=== PATIENT | female | born 1965 | race Caucasian/White ===

== ENCOUNTER 2023-07-06 08:25 | Outpatient (OUT) | payer OTHER, SELFPAY ==
--- NOTE | 2023-07-06 08:29 | MM_ITS ---
Patient: ISAK MARCIAL Exam Date: 07/06/2023 : 1965 Gender:F Ordering : DR Marcelino Cheney D.O. Admission #: [id number] Family : Order #: [id number] CLICK HERE TO VIEW EXAM RADIOLOGY REPORT PROCEDURE: MM TOMOSYNTHESIS SCREENING BI COMPARISON: MG MAMM SCREEN CIPRIANO W CAD, 07/17/2020. MG MAMM SCREEN CIPRIANO W CAD, 06/24/2019. MG MAMM SCREEN CIPRIANO W CAD, 06/21/2018. MG MAMM CIPRIANO SCRN W CAD DIG, 07/12/2013. INDICATIONS: Screening Calculator Name NCI Breast Cancer Risk Assessment Tool 5 Year Breast Cancer Risk 1.00% Lifetime Breast Cancer Risk 5.30% Personal Breast Cancer No Personal Ovarian Cancer No Treatments None Family Cancers Grandmother-maternal with breast cancer at age ~54; Aunt-maternal with breast cancer at age ~40; Grandfather-paternal with prostate cancer at age ~55; Sister with uterine cancer at age ~42. LOCATION: [facility] BREAST COMPOSITION: Scattered areas fibroglandular density. FINDINGS: DIAGNOSTIC CATEGORY 2--BENIGN FINDING: RIGHT BREAST: No significant suspicious finding. Scattered benign-appearing nodules are present. No significant change has occurred. LEFT BREAST: No significant suspicious finding. Stable, chronic asymmetry/scarring within upper-outer quadrant. No significant change has occurred. RECOMMENDATIONS: ROUTINE MAMMOGRAM AND CLINICAL EVALUATION IN 12 MONTHS. PLEASE NOTE: A NORMAL MAMMOGRAM DOES NOT EXCLUDE THE POSSIBILITY OF BREAST CANCER. A CLINICALLY SUSPICIOUS PALPABLE LUMP SHOULD BE BIOPSIED. Dictated by: Giovanni Shepherd M.D. on 07/07/2023 at 14:52 Approved by: Giovanni Shepherd M.D. on 07/07/2023 at 15:04
== END 2023-07-06 08:26 | disposition home or self-care (01) ==
LOC: MAMMO 08:25
PROVIDERS: PCP Internal Medicine; Visit Provider Internal Medicine
DX: Z12.31 Encounter for screening mammogram for malignant neoplasm of breast (principal); Z80.3 Family history of malignant neoplasm of breast; Z80.42 Family history of malignant neoplasm of prostate; Z80.8 Family history of malignant neoplasm of other organs or systems
CPT/HCPCS: 77063; 77067

== ENCOUNTER 2024-01-18 09:15 | Outpatient (OUT) | payer OTHER, SELFPAY ==
[2024-01-18 09:41] LABS: Basophils Absolute Auto 0.1 10^3/uL (0.0-0.1); Basophils Percent Auto 1.4 % (0.2-2.0); Eosinophils Absolute Auto 0.2 10^3/uL (0.0-0.7); Eosinophils Percent Auto 3.4 % (0.9-7.0); Hemoglobin 12.9 g/dL (12.0-16.0); Immature Granulocytes Abs Auto 0.01 10^3/uL (0.00-0.03); Immature Granulocytes Pct Auto 0.2 % (0.0-0.5); Lymphocytes Absolute Auto 2.3 10^3/uL (1.2-3.8); Lymphocytes Percent Auto 44.9 % (20.5-60.0); Mean Corpuscular Hemoglobin 23.2 pg (26.7-34.0); Mean Corpuscular Volume 77.5 fL (81.0-99.0); Mean Platelet Volume 8.9 fL (9.5-13.5); Monocytes Absolute Auto 0.5 10^3/uL (0.3-0.8); Monocytes Percent Auto 9.7 % (1.7-12.0); Neutrophils Absolute Auto 2.1 10^3/uL (1.4-6.5); Neutrophils Percent Auto 40.4 % (43.0-75.0); Platelet Count 257 10^3/uL (150-450); Red Blood Count 5.55 10^6/uL (4.20-5.40); Red Cell Distribution Width 16.9 % (11.0-15.0); White Blood Count 5.1 10^3/uL (4.0-11.0)
[2024-01-18 11:26] LABS: Alanine Aminotransferase 29 U/L (14-59); Albumin Globulin Ratio 0.8; Albumin Level 3.1 g/dL (3.4-5.0); Alkaline Phosphatase 69 U/L (46-116); Anion Gap 11.7; Aspartate Amino Transferase 16 U/L (15-37); BUN Creatinine Ratio 15.1; Bilirubin Total 0.5 mg/dL (0.2-1.0); Calcium 8.8 mg/dL (8.5-10.1); Carbon Dioxide 28.3 mmol/L (21.0-32.0); Chloride 104 mmol/L (98-107); Chol HDL Ratio 3.5; Cholesterol 167 mg/dL (<=200); Estimated GFR (African America >60 (>=60); Estimated GFR (Non-African Ame 53 (>=60); Globulin 3.7 g/dL; Glucose 95 mg/dL (74-106); HDL Cholesterol 48 mg/dL (40-60); LDL Cholesterol Calculated 97.4 mg/dL; Sodium 140 mmol/L (136-145); Thyroid Stimulating Hormone 2.131 uIU/mL (0.358-3.740); Total Protein 6.8 g/dL (6.4-8.2); Triglycerides 108 mg/dL (<=150); VLDL CHOLESTEROL 21.6 mg/dL
== END 2024-01-18 09:16 | disposition home or self-care (01) ==
LOC: LAB 09:16
PROVIDERS: PCP Internal Medicine; Visit Provider Internal Medicine
DX: Z00.00 Encounter for general adult medical examination without abnormal findings (principal)
CPT/HCPCS: 36415; 80053; 80061; 84443; 85025

== ENCOUNTER 2024-08-18 16:24 | Outpatient (OUT) | payer OTHER, SELFPAY ==
--- NOTE | 2024-08-18 | MM_ITS ---
Patient Name: ISAK MARCIAL MR#: [id number] : 1965 Exam Date: 08/18/2024 Ordering Doctor: DR Marcelino Cheney D.O. RADIOLOGY REPORT PROCEDURE: MM TOMOSYNTHESIS SCREENING BI COMPARISON: MM TOMOSYNTHESIS SCREENING BI, 07/06/2023. MG MAMM SCREEN CIPRIANO W CAD, 07/17/2020. MG MAMM SCREEN CIPRIANO W CAD, 06/24/2019. MG MAMM CIPRIANO SCRN W CAD DIG, 07/12/2013. INDICATIONS: Screening for malignant neoplasm Calculator Name [facility] Breast Cancer Risk Assessment Tool 5 Year Breast Cancer Risk 1.10% Lifetime Breast Cancer Risk 5.20% Personal Breast Cancer No Personal Ovarian Cancer No Treatments None Family Cancers Grandmother-maternal with breast cancer at age ~54; Aunt-maternal with breast cancer at age ~40; Grandfather-paternal with prostate cancer at age ~55; Sister with uterine cancer at age ~42. LOCATION: [facility] BREAST COMPOSITION: There are scattered areas of fibroglandular density. FINDINGS: DIAGNOSTIC CATEGORY 2--BENIGN FINDING: RIGHT BREAST: No significant suspicious finding. Stable, chronic nodule posterior lower-outer quadrant. No significant change has occurred. LEFT BREAST: No significant suspicious finding. No significant change has occurred. RECOMMENDATIONS: ROUTINE MAMMOGRAM AND CLINICAL EVALUATION IN 12 MONTHS. PLEASE NOTE: A NORMAL MAMMOGRAM DOES NOT EXCLUDE THE POSSIBILITY OF BREAST CANCER. A CLINICALLY SUSPICIOUS PALPABLE LUMP SHOULD BE BIOPSIED. Dictated by: Giovanni Shepherd M.D. on 08/19/2024 at 09:46 Approved by: Giovanni Shepherd M.D. on 08/19/2024 at 09:54
== END 2024-08-18 16:25 | disposition home or self-care (01) ==
LOC: MAMMO 16:24
PROVIDERS: PCP Internal Medicine; Visit Provider Internal Medicine
DX: Z12.31 Encounter for screening mammogram for malignant neoplasm of breast (principal); Z80.3 Family history of malignant neoplasm of breast; Z80.42 Family history of malignant neoplasm of prostate; Z80.8 Family history of malignant neoplasm of other organs or systems
CPT/HCPCS: 77063; 77067

== ENCOUNTER 2025-03-01 16:11 | Outpatient (OUT) | payer OTHER, SELFPAY ==
--- NOTE | 2025-03-01 | XR_ITS ---
The [place] [id number] Patient Name: ISAK MARCIAL MRN: [id number] date: 1965 Sex: F Assigned Patient Location: [facility] Current Patient Location: [facility] Accession/Order Number: [id number] Exam Date: 03/01/2025 18:56 Report Date: 03/01/2025 18:57 At the request of: MAIA BENNETT DO Procedure: XR hip LT min 2V XR hip LT min 2V 03/01/2025 4:31 PM SIGNS AND SYMPTOMS: ^lt hip pain M25.552 PROTOCOL: Frontal and frog-leg views of the left hip COMPARISON: None FINDINGS: The left hip joint space is preserved. There is no fracture or dislocation. Chondrocalcinosis is noted along the superior labrum suggesting underlying CPPD. Vascular calcifications are present in the pelvis. XR/XR hip LT min 2V IMPRESSION: No fracture or dislocation. Mild degenerative changes are noted in the left hip as above. Impression dictated by: Luther Amato M.D. 03/01/2025 6:57 PM Dictation Location: [place] [address] Electronically authenticated by: [id number] Y Date: 03/01/2025 18:57
--- NOTE | 2025-03-01 | XR_ITS ---
The [address] [address] Patient Name: ISAK MARCIAL MRN: [id number] date: 1965 Sex: F Assigned Patient Location: [facility] Current Patient Location: [facility] Accession/Order Number: [id number] Exam Date: 03/01/2025 18:54 Report Date: 03/01/2025 18:56 At the request of: MAIA BENNETT DO Procedure: XR lumbar spine 2-3V XR lumbar spine 2-3V 03/01/2025 4:31 PM SIGNS AND SYMPTOMS: Low back pain, recent fall PROTOCOLS: Frontal and lateral radiographs of the lumbar spine COMPARISON: None FINDINGS: There is a slight dextro convex curvature of the lumbar spine. The bones are otherwise in anatomic alignment. There is no fracture or destructive lesion. There is severe disc height loss at L4-5 with mild disc height loss at L5-S1. Facet degenerative changes are present, greatest at L4-5. The sacrum and sacroiliac joints are normal. XR/XR lumbar spine 2-3V IMPRESSION: No fracture or dislocation. Degenerative changes are noted throughout the lumbar spine greatest at L4-5. There is a slight dextro convex curvature of the lumbar spine. Impression dictated by: Luther Amato M.D. 03/01/2025 6:56 PM Dictation Location: [place] [address] Electronically authenticated by: [id number] Y Date: 03/01/2025 18:56
== END 2025-03-01 16:12 | disposition home or self-care (01) ==
LOC: RAD 16:13
PROVIDERS: PCP Internal Medicine; Visit Provider Internal Medicine
DX: M25.552 Pain in left hip (principal); M54.50 Low back pain, unspecified; M51.369 Other intervertebral disc degeneration, lumbar region without mention of lumbar back pain or lower extremity pain
CPT/HCPCS: 72100; 73502

== ENCOUNTER 2025-03-02 11:18 | Outpatient (OUT) | payer OTHER, SELFPAY ==
--- OUTSIDE RECORDS SUMMARY | 2014-07-27 10:30 | XMS_ITS | Continuity of Care Document ---
Author Organization Identify [facility] Address [address] [place] [address] [place] [address] Phone Care Team Providers Care Metal Punch Press Operator Name Role Phone Unavailable Unavailable Unavailable Procedures Procedure Date OFFICE/OUTPATIENT VISIT, EST POSTOP FOLLOW-UP VISIT POSTOP FOLLOW-UP VISIT Sleeve Gastrectomy LAP SLEEVE GASTRECTOMY OFFICE/OUTPATIENT VISIT, EST OFFICE CONSULTATION Advance Directives Directive Yes / No Effective Date File Name No Information Encounters Encounter Description Practice Location Reason(s) For Visit Diagnoses Date Provider Providers Copied on Encounter OFFICE/OUTPATI ENT VISIT, EST Identify [facility], [address] [place] [address], [id number], [place] tel:[phone] [facility] No Information 4 No [employer] [facility], [address] [place] [address], [id number], [place] tel:[phone] [facility] No Information 4 No [employer] [facility], [address] [place] [address], [id number], [place] tel:[phone] [facility] No Information 4 No [employer] [facility], [address] [place], [place] [address] [place], [place], [id number], [place] tel:[phone] [facility] IP No Information 4 No [employer] [facility], [address] [place] [address], [id number], [place] tel:[phone] [facility] IP No Information 4 Emerald Osullivan. [address], [place], [place], [id number], [place]. tel:[phone] Referring Provider: Abran Dejesus, [address] [place] [address] [address], [place], [address] . tel:[phone] OFFICE/OUTPATI ENT VISIT, [facility], [address] [place] [address] [address], [place], [place], [id number], tel:[phone] [facility] No Information 4 Emerald Osullivan. [facility] [address], [place], [place], [id number], [place]. tel:[phone] Referring Provider: Abran Dejesus, [address] [place] [address] [address], [place], [address] . tel:[phone] OFFICE [facility], [address] [place] [address] [address], [place], [place], [id number], [place] tel:[phone] [facility] No Information 4 Emerald Osullivan. [address] [place] [address] [address], [place], [place], [id number], [place]. tel:[phone] Referring Provider: Abran Dejesus, [address] [place] [address] [address], [place], [address] . tel:[phone] Family History Family Member Type Diagnosis Age At Onset No Information Payers Payer name Insurance type Covered republican ID Authoriza tion(s) No Information Social History Type Description Quantity Date Captured Comments Sex Female Smoking Status No Information Chief Complaint And Reason For Visit No Information Reason For Referral Reason For Referral No Information History Of Present Illness Encounter Date Complaint History Of Prese nt Illness No Information Functional Status Date Functional Assessmen t No Information Instructions Date Instruction Additional Infor mation No Information Assessments Type Assessment Date No Information Patient Care Teams Name Effective Dates (start - stop) Status Members No Information
--- OUTSIDE RECORDS SUMMARY | 2025-03-02 11:21 | XMS_ITS | Encounter Summary ---
Author Organization [facility] Address [address] [place] [address] Care Team Providers Care Practicing Urologist Name Role Phone Marcelino Cheney DO Primary Care Provider [phone] Reason for Referral * Other (Routine) - Closed Specialty Diagnoses / Procedures Referred By Mayelin cisneros Referred To Contact Radiology Diagnoses Abnormal mammogram Procedures SAGRRAIO LUIZA DIGITAL DIAGNOSTIC UNILATERAL RIGHT Marcelino Cheney DO [address] [place] [address] Phone: tel: fax: Referral ID Status Reason Start Date Expiration Date Visits Re quested Visits Authorized [id number] Closed 11/28/2021 11/28/2022 1 1 Encounter Details Date Type Department Care Team (Latest Contact Info) Description 11/28/2021 Transcribe Orders [facility] [address] [place] [id number] Marcelino Cheney DO [address] [place] [address] Abnormal mammogram (Primary Dx) Social History Tobacco Use Types Packs/Day Years Used Date Smoking Tobacco: Never Assessed Comments Unknown Sex and Gender Information Value Date Recorded Sex Assigned at Not on file Legal Sex Female 12:54 PM EDT Gender Identity Not on file Sexual Orientation Not on file documented as of this encounter Plan of Treatment Not on file documented as of this encounter Results * SAGRARIO LUIZA DIGITAL DIAGNOSTIC UNILATERAL RIGHT (12/02/2021 11:49 AM EDT) Anatomical Region Laterality Modality Right Mammography 12/02/2021 11:5 1 AM EDT Impressions 12/02/2021 12:35 PM EDT No mammographic evidence of malignancy BIRADS: BIRADS - CATEGORY 1 Negative. Normal interval follow-up is recommended in 12 months. OVERALL ASSESSMENT - NEGATIVE A letter of notification will be sent to the patient regarding the results. The [employer] recommends annual mammograms for women 40 years and older. Narrative 12/02/2021 12:35 PM EDT EXAMINATION: DIAGNOSTIC DIGITAL RIGHT BREAST MAMMOGRAM WITH TOMOSYNTHESIS, 12/02/2021 11:49 am TECHNIQUE: Diagnostic mammography of the right breast was performed with tomosynthesis. 2D standard and 3D tomosynthesis combination imaging performed through the right breast. Computer aided detection was utilized in the interpretation of this exam. Views: COMPARISON: November 25, 2021 HISTORY: ORDERING SYSTEM PROVIDED HISTORY: Abnormal mammogram FINDINGS: The right breast is composed of scattered fibroglandular density. Area of concern in the retroareolar right breast sufficient disperses with spot compressed imaging. No suspicious findings on this exam. us Marcelino Cheney DO IMG MAMMOGRAPHY ORDERABLES Olamide l Result documented in this encounter Visit Diagnoses Diagnosis Abnormal mammogram- Primary Abnormal mammogram, unspecified Abnormal mammogram Abnormal mammogram, unspecified documented in this encounter Care Teams Practicing Urologist Relationship Specialty Start Date End Date Marcelino Cheney [place] [facility] [place] [id number] PCP - General Internal Medicine 04/11/21 documented as of this encounter
--- OUTSIDE RECORDS SUMMARY | 2025-03-02 11:21 | XMS_ITS | Clinical Summary ---
Author Organization [facility] Address [address] [place] [address] Care Team Providers Care Director Of Revenue Cycle Management Name Role Phone Marcelino Cheney Primary Care Provider Allergies Active Allergy Reactions Criticality Noted Date Comments Codeine Rash Low 08/17/2023 Other Reaction(s): Hives, Esophageal spasms Medications fexofenadine (Carolina Allergy) 60 MG tablet Carolina Active coenzyme Q-10 10 MG capsule Co Q 10 Active escitalopram (Lexapro) 5 MG/5ML solution Escitalopram Oxalate Active pantoprazole (ProtoNix) 20 MG EC tablet Pantoprazole Sodium Active TEMAZEPAM & DIET MANAGE PROD PO Temazepam Active atorvastatin (Lipitor) 40 MG tablet 3 Active celecoxib (CeleBREX) 200 MG capsule TAKE 1 CAPSULE BY MOUTH EVERY DAY FOR 30 DAYS Active lisinopril-hydr oCHLOROthiazide 10-12.5 MG tablet .COMPLEX 4 Active Active Problems Problem Noted Date Diagnosed Date Allergies 09/12/2024 Overview (09/12/2024): Seasonal Arthritis 09/12/2024 Essential (primary) hypertension 09/12/2024 Gastroesophageal reflux dise ase with esophagitis without hemorrhage 09/12/2024 Generalized anxiety disorder 09/12/2024 Hypercholesterolemia 09/12/2024 Migraine 09/12/2024 Mild intermittent asthma without complication Reflux gastritis 09/12/2024 Sleep disturbance 09/12/2024 Allergic rhinitis due to pollen 06/16/2016 Family History Medical History Relation Name Comments Cancer Father Diabetes Father Heart disease Father Cancer Maternal Grandfather Cancer Maternal Grandmother Diabetes Maternal Grandmother Heart disease Maternal Grandmother Heart disease Mother Hyperlipidemia Mother Cancer Paternal Grandfather Diabetes Paternal Grandfather Heart disease Paternal Grandfather Hypertension Paternal Grandfather Diabetes Paternal Grandmother Heart disease Paternal Grandmother Hypertension Paternal Grandmother Cancer Sibling Diabetes Sibling Hyperlipidemia Sibling Hypertension Sibling Ivan's palsy Sister Fibromyalgia Sister Relation Name Status Comments Daughter Alive Father Maternal Grandfather Maternal Grandmother Mother Other Spouse Alive Paternal Grandfather Paternal Grandmother Sibling Alive Sister Alive Son Alive Social History Tobacco Use Types Packs/Day Years Used Date Smoking Tobacco: Unknown Passive Smoke Exposure: Never Tobacco Cessation:Counseling Given: No Comments:Light tobacco smoker Alcohol Use Standard Drinks/Week Comments Yes 0 (1 standard drink = 0.6 oz pure alcohol) caffeine: 1-2 cups per day coffee AUDIT-C Answer Date Recorded Q1: How often do you have a drink containing alc ohol? 2-4 times a month 08/08/2023 Q2: How many drinks containi ng alcohol do you have on a typical day when you are drinking? 1 or 2 08/08/2023 Frequency of Binge Drinking Not on file 07/16 Comments Unknown Sex and Gender Information Value Date Recorded Sex Assigned at Not on file Legal Sex Female 6:37 PM EDT Gender Identity Not on file Sexual Orientation Not on file Last Filed Vital Signs Vital Sign Reading Time Taken Comments Blood Pressure 139/85 06/14/2018 12:00 PM EDT Pulse - - Temperature - - Respiratory Rate - - Oxygen Saturation - - Inhaled Oxygen Concentration - - Weight 97.5 kg (215 lb) 09/15/2024 9:12 AM EST Height 162.6 cm (5' 4 ) 09/15/2024 9:12 AM EST Body Mass Index 36.9 09/15/2024 9:12 AM EST Plan of Treatment Upcoming Encounters Date Type Department Care Team (Late st Contact Info) Description 08/21/2025 11:25 AM EST Office Visit [facility] [address] [place] [address] Ivone Jones APRN-NUCLEAR EQUIPMENT TEST ENGINEER [address] [place] [address] Health Maintenance Due Date Last Done Comments CT Colonography 1965 Colonoscopy 1965 Colorectal Cancer Screening 1965 FIT-DNA 1965 FIT 1965 FOBT 1965 Sigmoidoscopy 1965 Pap Smear 1984 Cervical Cancer Screening 1993 HPV/Cotest 1993 Mammogram 12/02/2022 12/02/2021, 12/02/2021, 11/12 Influenza Vaccine Completed 08/19/2024, , 06/12/2022, Additional history exists Insurance [employer] Care Teams Director Of Revenue Cycle Management Relationship Specialty Start Date End Date Marcelino Cheney DO PCP - General Internal Medicine 09/15/24
--- OUTSIDE RECORDS SUMMARY | 2025-03-02 11:21 | XMS_ITS | Clinical Summary ---
Author Organization [facility] Address [address] [place] [address] Care Team Providers Care Glass Rolling Machine Operator Name Role Phone Marcelino Cheney DO Primary Care Provider [phone] Immunizations Immunization Administration Dates Next Due COVID-19, PFIZER PURPLE top, DILUTE for use, (age 12 y+), 30mcg/0.3mL 12/17/2020,11/20/2020 Social History Tobacco Use Types Packs/Day Years Used Date Smoking Tobacco: Never Assessed Comments Unknown Sex and Gender Information Value Date Recorded Sex Assigned at Not on file Legal Sex Female 12:54 PM EDT Gender Identity Not on file Sexual Orientation Not on file Plan of Treatment Not on file Insurance [employer] Care Teams Glass Rolling Machine Operator Relationship Specialty Start Date End Date Marcelino Cheney DO [address] [place] [id number] PCP - General Internal Medicine 04/11/21
--- OUTSIDE RECORDS SUMMARY | 2025-03-02 11:21 | XMS_ITS | Clinical Summary ---
Author Organization [facility] Address [address] [place] [address] Care Team Providers Care Shoe Stainer Name Role Phone Unavailable Primary Care Provider Unavailabl e Social History Tobacco Use Types Packs/Day Years Used Date Smoking Tobacco: Never Assessed Comments Unknown Sex and Gender Information Value Date Recorded Sex Assigned at Not on file Legal Sex Female 9:35 AM EST Gender Identity Not on file Sexual Orientation Not on file Plan of Treatment Health Maintenance Due Date Last Done Comments Anxiety Screening 1981 Depression Screening 1981 HIV Screening 1981 Hepatitis C Screening 1981 DTaP,Tdap,Td Vaccine (1 - Tdap) 1982 Cervical Cancer Screening [address] Colonography 2008 Cologuard (FIT-DNA) 2008 Colonoscopy 2008 02/04/2006, 07/18/2002 Colorectal Cancer Screening 2008 Diabetes Screening 2008 05/14/2000 Fecal Occult Blood 2008 Lipid Screening 2008 Sigmoidoscopy 2008 Pneumococcal Vaccine: 50+ (1 of 1 - PCV) 2013 Shingrix Vaccine (1 of 2) 2013 Covid-19 Vaccine (1 - 2023- season) 2024 Influenza Vaccine (Season Ended) 2025 RSV Vaccine (1 - 1-dose 75+ series) 2038 Procedures Procedure Name Priority Date/Time Associated Diagnosis Comments COLONOSCOPY, GI 02/04/2006 COMPREHENSIVE METABOLIC PANEL 05/14/2000 4:30 AM EDT from Last 3 Months or Most Recently Relevant to Health Maintenance Results * COLONOSCOPY, GI (02/04/2006) Manager Code DATE: 02/04/2006 ENDOSCOPIST: Johnny Pastor D.O. REFERRING PHYSICIAN: PATIENT NAME: ISAK MARCIAL DATE: 1965 HOSPITAL NO: [id number] IMPRESSION: 1. Colon polyp 2. Small internal hemorrhoid INTRODUCTION 40 year old female patient presents for an elective outpatient colonoscopy. The indications for the procedure were gastrointestinal bleeding and diarrhea. CONSENT: The benefits, risks, and alternatives to the procedure were discussed and informed consent was obtained from the patient. PREPARATION: Pulse, pulse oximetry and blood pressure monitored. MEDICATIONS: - Versed 1 mg IV during the procedure - Demerol 25 mg IV during the procedure - The patient was medicated for a prior procedure. PROCEDURE: Rectal exam: Normal. The endoscope was passed with ease under direct visualization to the terminal ileum confirmed by appendiceal orifice, cecal strap (atmautluak's foot) and ileocecal valve. A staff physician was present for the entire procedure from the insertion to the removal of the scope. Retroflexion was performed. The quality of the preparation was excellent. FINDINGS: The colonic mucosa appeared entirely normal with the exception of a diminutive polyp in the descending colon that was removed with cold biopsy forceps. There were no bleeding sites found. One small internal hemorrhoid was noted on retroflexion. Multiple random biopsies were obtained throughout. There were no masses found. There were no vascular abnormalities noted. [facility] 02/04/2006 Narrative [facility] - 02/04/2006 5:04 PM EDT Ordered by an unspecified provider. us [facility] Provider SCHEDULED PROCEDURES Final Resul t Performing Organization Address City/State/[facility] Co de Phone Number [facility] [address] [place] [address] * (ABNORMAL) COMP CHEMISTRY PKG (05/14/2000 4:30 AM EDT) Protein, Total 6.3 6.0 - 8.4 g/dL [facility] Albumin 3.4(A) 3.5 - 5.0 g/dL [facility] Calcium 8.7 8.5 - 10.5 mg/dL [facility] Bilirubin, Total 0.4 0.0 - 1.5 mg/dL [facility] Alkaline Phosphatase 38 20 - 120 U/L [facility] AST 25 7 - 40 U/L [facility] Glucose 81 65 - 110 mg/dL [facility] BUN 18 8 - 25 mg/dL [facility] Creatinine 0.7 0.7 - 1.4 mg/dL [facility] Sodium 142 132 - 148 mmol/L [facility] Potassium 4.6 3.5 - 5.0 mmol/L [facility] Chloride 109 98 - 110 mmol/L [facility] CO2 23(A) 24 - 32 mmol/L [facility] Anion Gap 10 0 - 15 mmol/L [facility] ALT 40 0 - 45 U/L [facility] 05/14/2000 4:30 AM EDT Johnny Pastor LABORATORY Final Result [facility] [address] [place] [address] from Last 3 Months or Most Recently Relevant to Health Maintenance Insurance [facility] PPO
--- OUTSIDE RECORDS SUMMARY | 2025-03-02 11:35 | XMS_ITS | CCD ---
Author Organization [facility] Care Team Providers Care Rcis Name Role Phone Marcelino Cheney DO Primary Care Provider DONALD, MARCELINO Jarquin Referring Unavailable BALL, MARCELINO Jarquin Primary Care Unavailable BALL, MARCELINO Jarquin Referring Unavailable BALL, MARCELINO Jarquin Primary Care Unavailable BALL, MARCELINO E Primary Care Unavailable BALL, MARCELINO Jarquin Referring Unavailable BALL, MARCELINO Jarquin Referring Unavailable BALL, MARCELINO Jarquin Primary Care Unavailable BALL, MARCELINO Jarquin Referring Unavailable BALL, MARCELINO Jarquin Primary Care Unavailable BALL, MARCELINO Jarquin Referring Unavailable BALL, MARCELINO Jarquin Primary Care Unavailable BALL, MARCELINO Jarquin Referring Unavailable BALL, MARCELINO Jarquin Primary Care Unavailable BALL, MARCELINO Jarquin Referring Unavailable BALL, MARCELINO Jarquin Primary Care Unavailable Ball, Marcelino Unavailable DONALD, DR CARVALHO Admitting Unavailable BALL, DR CARVALHO Attending Unavailable BALL, DR CARVALHO Consulting Unavailable BALL, DR CARVALHO Primary Care Unavailable BALL, DR CARVALHO Admitting Unavailable BALL, DR CARVALHO Attending Unavailable BALL, DR CARVALHO Consulting Unavailable BALL, DR CARVALHO Primary Care Unavailable ZieberGiovanni Consulting Unavailable BALL, DR CARVALHO Admitting Unavailable BALL, DR CARVALHO Attending Unavailable BALL, DR CARVALHO Consulting Unavailable BALL, DR CARVALHO Primary Care Unavailable BALL, DR CARVALHO Admitting Unavailable BALL, DR CARVALHO Attending Unavailable BALL, DR CARVALHO Primary Care Unavailable HOY ., DR LANGLEY Consulting Unavailable BALL, DR CARVALHO Primary Care Unavailable FAWWAD, H Admitting Unavailable FAWWAHammad, H Attending Unavailable PAY ., DR SNOWDEN Consulting Unavailable HERNANDEZ ., MR HANNA Consulting Unavailable FAWNOELLE, H Consulting Unavailable MISTY GOLD Consulting Unavailable UNLU, ABBY Consulting Unavailable BALL, DR CARVALHO Admitting Unavailable BALL, DR CARVALHO Attending Unavailable BALL, DR CARVALHO Primary Care Unavailable Unavailable Primary Care Provider UnavailMarcelino Saenz MD Primary Care Provider IVONE JONES Attending Unavailable DEREK BRAMBILA Attending Unavailable MARCELINO CHENEY Referring Unavailable Allergies Allergy Classification Reported Allergen(s) Allergy Type Date of Onset Reaction(s) Facility (15 sources) Codeine Drug Allergy 3 Rash [facility] (2 sources) Codeine Drug Allergy [facility] Repository (6 sources) Codeine Drug Allergy Unknown [facility] Other (6 sources) patient allergy list reviewed by nurse or physicia Propensity to adverse reactions 4 Comment:Done [facility] Other Medications Current Medications Medication Drug Class(es) Dates Sig (Normalized) Sig (Original) Acetaminophen / HYDROcodone (9 sources) Opioid Agonist take 1 tablet by mouth every four hours as needed Panlor SS 712.8-60-32 MG 1 tablet as needed Orally every 4 hrs Active Amitriptyline (16 sources) Tricyclic Antidepressant Start: 06-27-2024 take 1 tablet by mouth at bedtime Amitriptyline Active 0 .ROUTE .COMPLEX June 27, 2024 5:50pm TAKE 1 TABLET BY MOUTH AT BEDTIME Start: 02-24-2024 End: 06-27-2024 take 1 tablet by mouth three times daily Amitriptyline Discontinued 0 .ROUTE .COMPLEX 270 February 24, 2024 12:55pm June 27, 2024 5:50pm TAKE 1 TABLET BY MOUTH THREE TIMES A DAY Start: 02-02-2024 End: 02-24-2024 take 10 mg by mouth three times daily Amitriptyline Discontinued 10 MG PO Three times daily 90 February 02, 2024 9:32am February 24, 2024 12:55pm Start: 01-25-2024 End: 01-25-2024 take 25 mg by mouth once daily at bedtime Amitriptyline Discontinued 25 MG PO Daily at bedtime 90 January 25, 2024 1:10pm January 25, 2024 5:54pm 1-2 PO q HS Start: 01-25-2024 End: 02-02-2024 take 10 mg by mouth once daily at bedtime Amitriptyline Discontinued 10 MG PO Daily at bedtime 90 January 25, 2024 12:00am February 02, 2024 9:33am Start: 01-18-2024 End: 01-25-2024 take 30 mg by mouth once daily at bedtime Amitriptyline Discontinued 30 MG PO Daily at bedtime January 18, 2024 10:36am January 25, 2024 1:10pm 1-2 PO q HS Start: 01-15-2024 End: 01-18-2024 take 10 mg by mouth once daily at bedtime Amitriptyline Discontinued 10 MG PO Daily at bedtime January 15, 2024 12:00am January 18, 2024 10:38am 1-2 PO q HS atorvastatin 40 mg oral tablet (20 sources) HMG-CoA Reductase Inhibitor Start: 12-23-2023 take 1 tablet by mouth once daily Atorvastatin Active 0 .ROUTE .COMPLEX December 23, 2023 2:44pm TAKE 1 TABLET BY MOUTH ONCE DAILY Start: 08-04-2023 End: 12-23-2023 atorvastatin (Lipitor) 40 MG tablet 08/04/2023 Active Start: 09-19-2022 take 1 tablet by davey th every twenty-four hours Atorvastatin Calcium 40 MG 1 tablet Orally Once a day Sep, Active Calcium 500 + D 500-125 MG-UNIT (1 source) take 1 tablet by mouth once daily Calcium 500 + D 500-125 MG-UNIT 1 tablet Orally Once a day for 30 day(s) Active celecoxib 200 mg oral capsule (5 sources) Nonsteroidal Anti-inflammatory Drug Start: 07-01-20 take 1 capsule by mouth once daily Celecoxib (Celebrex) 200 mg capsule Active 200 MG PO Daily July 01, 2024 12:00am codeine phosphate 2 mg/ml / guaiFENesin 20 mg/ml oral solution (9 sources) Opioid Agonist Start: 11-05-19 take 10 mL by mouth every six hours guaiFENesin-Codeine 100-10 MG/5ML 10 mL Orally every 6 hrs for 7 days Oct, Active CoQ-10 100 MG (2 sources) CoQ-10 100 MG as directed Orally Active escitalopram 10 mg oral tablet (20 sources) Serotonin Reuptake Inhibitor Start: 11-10-19 End: 01-18-20 24 take 1 tablet by mouth once daily at bedtime Escitalopram Oxalate Active 0 .ROUTE .COMPLEX January 18, 2024 6:07pm TAKE 1 TABLET BY MOUTH DAILY AT BEDTIME Start: 11-10-2023 End: 11-10-2023 take 10 mg by mouth once daily at bedtime Escitalopram Oxalate Discontinued 10 MG PO Daily at bedtime 90 90 November 10, 2023 2:37pm November 10, 2023 9:42pm escitalopram (Le xapro) 5 MG/5ML solution Escitalopram Oxalate Active Escitalopram Oxa late 10 MG TAKE 1 TABLET AT BEDTIME for 90 Active fexofenadine hydrochloride 180 mg oral tablet (19 sources) Histamine-1 Receptor Antagonist Start: 01-12-2024 take 180 mg by mouth once daily Fexofenadine Active 180 MG PO Daily January 12, 2024 12:00am fexofenadine (Al legra Allergy) 60 MG tablet [place] Active take 1 tablet by davey th every twenty-four hours Fexofenadine HCl 180 MG 1 tablet Orally Once a day for 30 day(s) Active hydroCHLOROthiazide 12.5 mg / lisinopril 10 mg oral tablet (12 sources) Thiazide Diuretic, Angiotensin Converting Enzyme Inhibitor Start: 12-07-2023 lisinopril-hydroCHLOROthiazi de 10-12.5 MG tablet .COMPLEX 12/07/2023 Active Start: 12-07-2023 take 1 tablet by davey th twice daily Lisinopril-Hydrochlorothiazide Active 0 .ROUTE .COMPLEX 180 December 07, 2023 1:33pm TAKE 1 TABLET BY MOUTH TWICE DAILY Start: 12-07-2023 End: 12-07-2023 take 1 tablet by mouth twice daily Lisinopril-Hydrochlorothiazide Discontin ued 1 TAB PO Twice daily December 07, 2023 12:00am December 07, 2023 1:33pm take 1 tablet by davey twice daily Lisinopril-hydroCHLOROthiazide 10-12.5 M G 1 tablet Orally twice daily Active 24 hr metoprolol succinate 50 mg extended release oral tablet (1 source) beta-Adrenergic Liset Start: 01-16-2023 take 1 tablet by mouth every twenty-four hours Metoprolol Succinate ER 50 MG 1 tablet Orally Once a day for 30 days January, Active pantoprazole 40 mg delayed release oral tablet (19 sources) Proton Pump Inhibitor Start: 01-12-2024 take 40 mg by mouth twice daily Pantoprazole Active 40 MG PO Twice daily January 12, 2024 12:00am Start: 11-11-2022 take 1 tablet by davey th twice daily Pantoprazole Sodium 40 MG 1 tablet Orally Twice daily Oct, Active pantoprazole (Pr otoNix) 20 MG EC tablet Pantoprazole Sodium Active Spacer/Aero-Hold Chamber Bags - (9 sources) Start: 10-27-2022 Spacer/Aero-Hold Chamber Bags - Use w/ inhaler in vitro every 4 hours as needed for cough or SOB for 365 days Oct, Active TEMAZEPAM & DIET MANAGE PROD PO (6 sources) TEMAZEPAM & DIET MANAGE PROD PO Temazepam Active traMADol hydrochloride 50 mg oral tablet (4 sources) Opioid Agonist Start: 01-15-2024 take 50 mg by mouth twice daily Tramadol Active 50 MG PO Twice daily January 15, 2024 12:00am ubidecarenone 100 mg oral capsule (20 sources) Start: 01-15-2024 Coenzyme Q10 Active 200 MG PO As Directed January 15, 2024 2:56pm Start: 01-12-2024 End: 01-15-2024 Coenzyme Q10 Discontinued 10 0 MG PO As Directed January 12, 2024 12:00am January 15, 2024 2:59pm coenzyme Q-10 10 MG capsule Co Q 10 Active CoQ-10 100 MG as directed Orally Active Completed/Discontinued Medications Medication Drug Class(es) Dates Sig (Normalized) Sig (Original) Acetaminophen-Caff -Dihydrocod (4 sources) Start: 01-12-2024 End: 01-15-2024 take 1 tablet by mouth every four hours Acetaminophen-Caff- Dihydrocod Discontinued 1 TAB PO Every 4 hours January 12, 2024 12:00am January 15, 2024 2:56pm [id number] 200 actuat albuterol 0.09 mg/actuat metered dose inhaler (14 sources) beta2-Adrenergic Agonist Start: 01-12-2024 End: 01-15-2024 take 1 puff(s) by inhalation every four hours Albuterol Sulfate Discontinued 2 PUFF INHALATION Every 4 hours January 12, 2024 12:00am January 15, 2024 2:56pm Start: 10-27-2022 take 2 puff(s) by in halation every four hours as needed for cough Albuterol Sulfate HFA 108 (90 Base) MCG/ACT 2 puffs Inhalation Every 4 hours as needed for cough or SOB Oct, Active Start: 10-27-2022 take 2 puff(s) by in halation every four hours as needed for cough Albuterol Sulfate HFA 108 (90 Base) MCG/ACT 2 puffs Inhalation Every 4 hours as needed for cough or SOB Oct, Active Start: 08-14-2010 take 1 puff(s) by in halation every four hours Ventolin HFA 108 (90 Base) MCG/ACT 1 puff Inhalation every 4 hrs Aug, Active diclofenac sodium 75 mg delayed release oral tablet (12 sources) Nonsteroidal Anti-inflammatory Drug Start: 01-12-2024 End: 01-15-2024 take 75 mg by mouth twice daily Diclofenac Sodium Discontinued 75 MG PO Twice daily January 12, 2024 12:00am January 15, 2024 2:57pm take 1 tablet by [facility] twice daily at mealtime Diclofenac Sodium 75 MG TAKE 1 TABLET BY MOUTH TWICE A DAY WITH FOOD for 30 Active nortriptyline 25 mg oral capsule (13 sources) Tricyclic Antidepressant Start: 01-12-2024 End: 01-15-2024 take 25 mg by mouth once daily at bedtime Nortriptyline Discontinued 25 MG PO Daily at bedtime January 12, 2024 12:00am January 15, 2024 3:16pm take 1 capsule by mouth at bedti nv Nortriptyline HCl 25 MG TAKE 1 CAPSULE BY MOUTH AT BEDTIME for 30 Active temazepam 15 mg oral capsule (13 sources) Benzodiazepine Start: 01-15-2024 End: 01-18-2024 take 15 mg by mouth once daily at bedtime Temazepam Discontinued 15 MG PO Daily at bedtime January 15, 2024 12:00am January 18, 2024 10:36am Start: 06-15-2023 take 1 capsule by [facility] every twenty-four hours Temazepam 15 MG 1 capsule at bedtime as needed Orally Once a day for 14 days Jun, Active Start: 05-31-2023 take 1 capsule by [facility] every twenty-four hours Temazepam 15 MG 1 capsule at bedtime as needed Orally Once a day for 90 days May, Active Start: 05-05-2023 take 1 capsule by [facility] every twenty-four hours Temazepam 15 MG 1 capsule at bedtime as needed Orally Once a day for 90 days Apr, Active Start: 10-16-2022 take 1 capsule by [facility] every twenty-four hours Temazepam 15 MG 1 capsule at bedtime as needed Orally Once a day for 30 days Oct, Active triamcinolone acetonide 40 mg/ml injectable suspension (12 sources) Corticosteroid Start: 01-08-2023 Kenalog-40 Apr, 60 mg Problems Active Problems Problem Classification Problem Date Documented Da te Episodic/Chronic Acute and unspecified renal failure (1 source) Acute kidney failure, unspecified; Translations: [ACUTE KIDNEY FAILURE UNSPECIFIED] Onset: 3 Episodic Allergic reactions (15 sources) Allergic urticaria; Translations: [Allergic urticaria] Onset: 5 09-12-2024 Episodic Anxiety disorders (17 sources) Generalized anxiety disorder; Translations: [Generalized anxiety disorder] Onset: 4 01-14-2024 Chronic Asthma (20 sources) Cough variant asthma; Translations: [Cough variant asthma] Onset: 6 Chronic Cardiac dysrhythmias (4 sources) Tachycardia, unspecified; Translations: [TACHYCARDIA UNSPECIFIED] Onset: 3 Episodic Chronic obstructive pulmonary disease and bronchiectasis (6 sources) Acute exacerbation of chronic asthmatic bronchitis; Translations: [Chronic obstructive asthma, with (acute) exacerbation] Onset: 6 Chronic Delirium, dementia, and amnestic and other cognitive disorders (6 sources) Postconcussion syndrome; Translations: [Postconcussional syndrome] Chronic Disorders of lipid metabolism (20 sources) Hypercholesterolemia; Translations: [Pure hypercholesterolemia, unspecified] Onset: 4 Chronic E Codes: Adverse effects of medical drugs (2 sources) Adverse effect of carbonic-anhydrase inhibitors, benzothiadiazides and other diuretics, initial encounter; Translations: [Adverse effect of other antihypertensive drugs, initial encounter] Onset: 3 Episodic Esophageal disorders (17 sources) Gastro-esophageal reflux disease without esophagitis; Translations: [Esophageal reflux finding] Onset: 3 01-14-2024 Chronic Esophageal disorders (15 sources) Esophageal disorders; Translations: [Gastroesophageal reflux disease with esophagitis without hemorrhage] Essential hypertension (20 sources) Hypertensive disorder; Translations: [Essential (primary) hypertension] Onset: 5 Chronic Gastritis and duodenitis (3 sources) Bile-induced gastritis; Translations: [Other gastritis without bleeding] Onset: 4 09-12-2024 Episodic Headache; including migraine (15 sources) Chronic migraine without aura, non-refractory; Translations: [Migraine without aura, not intractable, without status migrainosus] Onset: 4 01-18-2024 Chronic Headache; including migraine (1 source) Headache; including migraine; Translations: [Headache, unspecified] Onset: 5 Immunizations and screening for infectious disease (12 sources) Contact with and (suspected) exposure to other viral communicable diseases; Translations: [Vaccination given] Resolved: 2 Episodic Malaise and fatigue (1 source) Other fatigue Episodic Miscellaneous mental health disorders (12 sources) Primary insomnia; Translations: [Primary insomnia] Chronic Osteoarthritis (9 sources) Osteoarthritis of knee; Translations: [Bilateral primary osteoarthritis of knee] Onset: 4 09-12-2024 Chronic Other aftercare (1 source) exterminator termite (current) use of aspirin; Translations: [RESIDENTIAL CURRENT USE OF ASPIRIN] Onset: 3 Episodic Other aftercare (1 source) Other longshore equipment operator (current) drug therapy; Translations: [OTH PLASTIC JOINT MAKER CURRENT DRUG THERAPY] Onset: 3 Episodic Other and unspecified benign neoplasm (2 sources) Melanocytic nevus of trunk; Translations: [Melanocytic nevi of trunk] 08-18-2024 Episodic Other hematologic conditions (1 source) Other specified abnormalities of plasma proteins; Translations: [OTH SPEC ABNORM PLASMA PROTEINS] Onset: 3 Episodic Other lower respiratory disease (1 source) Other forms of dyspnea Episodic Other lower respiratory disease (1 source) Shortness of breath; Translations: [SHORTNESS OF BREATH] Onset: 3 Episodic Other lower respiratory disease (1 source) Wheezing; Translations: [WHEEZING] Onset: 3 Episodic Other lower respiratory disease (6 sources) Cough; Translations: [Cough, unspecified] Episodic Other nutritional; endocrine; and metabolic disorders (5 sources) Simple obesity ; Translations: [Other obesity due to excess calories] Onset: 6 Chronic Other nutritional; endocrine; and metabolic disorders (5 sources) Obesity; Translations: [Obesity, unspecified] Chronic Other nutritional; endocrine; and metabolic disorders (5 sources) Body mass index 30+ - obesity; Translations: [Body mass index 30.0-30.9, adult] Onset: 6 Chronic Other nutritional; endocrine; and metabolic disorders (1 source) Other obesity due to excess calories; Translations: [Other obesity due to excess calories] Onset: 6 Chronic Other nutritional; endocrine; and metabolic disorders (1 source) Obesity, unspecified; Translations: [Obesity, unspecified] Chronic Other screening for suspected conditions (not mental disorders or infectious disease) (13 sources) Patient encounter status; Translations: [Encounter for screening mammogram for malignant neoplasm of breast] Episodic Other skin disorders (2 sources) Lentiginosis; Translations: [Other melanin hyperpigmentation] 08-18-2024 Episodic Other skin disorders (2 sources) Seborrheic keratosis; Translations: [Other seborrheic keratosis] 08-18-2024 Episodic Other skin disorders (2 sources) Sebaceous hyperplasia; Translations: [Other specified follicular disorders] 08-18-2024 Episodic Other upper respiratory disease (20 sources) Allergic rhinitis due to pollen; Translations: [Allergic rhinitis due to pollen] Onset: 6 01-18-2024 Chronic Other upper respiratory disease (5 sources) Seasonal allergic rhinitis; Translations: [Other seasonal allergic rhinitis] Chronic Other upper respiratory disease (5 sources) Allergic rhinitis; Translations: [Allergic rhinitis, unspecified] Onset: 5 Chronic Other upper respiratory disease (2 sources) Allergic rhinitis due to pollen Chronic Other upper respiratory disease (1 source) Other seasonal allergic rhinitis; Translations: [Other seasonal allergic rhinitis] Chronic Other upper respiratory disease (1 source) Allergic rhinitis, unspecified; Translations: [Allergic rhinitis, unspecified] Onset: 5 Chronic Phlebitis; thrombophlebitis and thromboembolism (1 source) Personal history of other venous thrombosis and embolism; Translations: [PERS HX OTH VENOUS THROMBOSIS AND EMBO] Onset: 3 Episodic Pulmonary heart disease (1 source) Personal history of pulmonary embolism; Translations: [PERSONAL HISTORY PULMONARY EMBOLISM] Onset: 3 Episodic Residual codes; unclassified (1 source) Family history of ischemic heart disease and other diseases of the circulatory system; Translations: [FAM HX ISCHEMIC HRT DZ OTH DZ CIRC] Onset: 3 Episodic Residual codes; unclassified (1 source) Acquired absence of stomach [part of]; Translations: [ACQUIRED ABSENCE OF STOMACH] Onset: 3 Episodic Residual codes; unclassified (5 sources) Family history of diabetes mellitus; Translations: [Family history of diabetes mellitus] Episodic Residual codes; unclassified (1 source) Family history of diabetes mellitus; Translations: [Family history of diabetes mellitus] Episodic Residual codes; unclassified (3 sources) Disturbance in sleep behavior; Translations: [Sleep disorder, unspecified] Onset: 4 09-12-2024 Episodic Screening and history of mental health and substance abuse codes (7 sources) Personal history of nicotine dependence; Translations: [History of tobacco use] Onset: 8 Episodic Spondylosis; intervertebral disc disorders; other back problems (1 source) Pain in thoracic spine; Translations: [PAIN IN THORACIC SPINE] Onset: 3 Episodic Sprains and strains (12 sources) Neck sprain; Translations: [Strain of muscle, fascia and tendon at neck level, initial encounter] Resolved: 2 Episodic Substance-related disorders (6 sources) Tobacco user; Translations: [Nicotine dependence, cigarettes, in remission] Chronic Unclassified (1 source) PERSONAL HISTORY OF COVID-19; Translations: [PERSONAL HISTORY OF COVID-19] Onset: 3 Unclassified (1 source) COUGH, UNSPECIFIED; Translations: [COUGH, UNSPECIFIED] Onset: 3 Viral infection (4 sources) COVID-19; Translations: [COVID-19] Onset: 3 Past or Other Problems Problem Classification Problem Date Documented Date Episodic/Chronic Acute bronchitis (6 sources) Acute bronchitis; Translations: [Acute bronchitis, unspecified] Onset: 06-07-2014 Episodic Essential hypertension (1 source) Essential hypertension; Translations: [Essential hypertension, benign] Onset: 10-31-2014 Headache; including migraine (5 sources) Headache; Translations: [Headache, unspecified] Onset: 10-31-2014 Episodic Intracranial injury (6 sources) Concussion with no loss of consciousness; Translations: [Concussion without loss of consciousness, initial encounter] Resolved: 10-03-2021 Episodic Superficial injury; contusion (17 sources) Contusion of left shoulder; Translations: [Contusion of left shoulder, initial encounter] Resolved: 10-03-2021 Episodic Syncope (10 sources) Syncope and collapse; Translations: [Syncope and collapse] Onset: 02-08-2015 Episodic Unclassified (6 sources) Acquired musculoskeletal deformity of other specified site; Translations: [Acquired musculoskeletal deformity of other specified site] Onset: 03-11-2019 Unclassified (1 source) Body mass index 30.0-30.9, adult; Translations: [Body mass index 30.0-30.9, adult] Onset: 06-16-2016 Unclassified (1 source) Personal history of tobacco use, presenting hazards to health; Translations: [Personal history of tobacco use, presenting hazards to health] Onset: 12-30-2017 Results Test Name Value Interpretation Reference Range Facility CBC AUTO DIFFon 01-27-2023 BASO # 0.1 103/ul Normal 0.0-0.1 [facility] Comment on above: Performed By: #### C BC #### [facility] [address] [place] [address] Dr. Isabell Muñoz Basophils/100 WBC (Bld) 0.7 % Normal 0.2-2.0 [facility] Comment on above: Performed By: #### C BC #### [facility] [address] [place] [address] Dr. Isabell Muñoz EO # 0.1 103/ul Normal 0.0-0.7 [facility] Comment on above: Performed By: #### C BC #### [facility] [address] [place] [address] Dr. Isabell Muñoz Eosinophils/100 WBC (Bld) 1.4 % Normal 0.9-7.0 [facility] Comment on above: Performed By: #### C BC #### [facility] [address] [place] [address] Dr. Isabell Muñoz Erythrocyte distribution width (RBC) [Ratio] 17.6 % Critically high 11.0-15.0 [facility] Comment on above: Performed By: #### C BC #### [facility] [address] [place] [address] Dr. Isabell Muñoz Hematocrit (Bld) [Volume fraction] 44.7 % Normal 36.0-48.0 [facility] Comment on above: Performed By: #### C BC #### [facility] [address] [place] [address] Dr. Isabell Muñoz Hemoglobin (Bld) [Mass/Vol] 13.8 g/dL Normal 12.0-16.0 [facility] Comment on above: Performed By: #### C BC #### [facility] [address] [place] [address] Dr. Isabell Muñoz IG # 0.01 10e3/ul Normal 0.00-0.03 [facility] Comment on above: Performed By: #### C BC #### [facility] [address] [place] [address] Dr. Isabell Muñoz IG % 0.1 % Normal 0.0-0.5 [facility] Comment on above: Performed By: #### C BC #### [facility] [address] [place] [address] Dr. Isabell Muñoz LYMPH # 2.9 103/ul Normal 1.2-3.8 [facility] Comment on above: Performed By: #### C BC #### [facility] [address] [place] [address] Dr. Isabell Muñoz Lymphocytes/100 WBC (Bld) 40.6 % Normal 20.5-60.0 [facility] Comment on above: Performed By: #### C BC #### [facility] [address] [place] [address] Dr. Isabell Muñoz MANUAL DIFF REQ NO Normal [facility] Comment on above: Performed By: #### C BC #### [facility] [address] [place] [address] Dr. Isabell Muñoz MCH (RBC) [Entitic mass] 24.0 pg Critically low 26.7-34.0 [facility] Comment on above: Performed By: #### C BC #### [facility] [address] [place] [address] Dr. Isabell Muñoz MCHC (RBC) [Mass/Vol] 30.9 g/dL Normal 29.9-35.2 [facility] Comment on above: Performed By: #### C BC #### [facility] [address] [place] [address] Dr. Isabell Muoñz MCV (RBC) [Entitic vol] 77.7 fL Critically low 81.0-99.0 [facility] Comment on above: Performed By: #### C BC #### [facility] [address] [place] [address] Dr. Isabell Muñoz MONO # 0.6 103/ul Normal 0.3-0.8 [facility] Comment on above: Performed By: #### C BC #### [facility] [address] [place] [address] Dr. Isabell Muñoz Monocytes/100 WBC (Bld) 8.5 % Normal 1.7-12.0 [facility] Comment on above: Performed By: #### C BC #### [facility] [address] [place] [address] Dr. Isabell Muñoz NEUT # 3.4 103/ul Normal 1.4-6.5 [facility] Comment on above: Performed By: #### C BC #### [facility] [address] [place] [address] Dr. Isabell Muñoz Neutrophils/100 WBC (Bld) 48.7 % Normal 43.0-75.0 [facility] Comment on above: Performed By: #### C BC #### [facility] [address] [place] [address] Dr. Isabell Muñoz Platelet mean volume (Bld) [Entitic vol] 8.3 fL Critically low 9.5-13.5 [facility] Comment on above: Performed By: #### C BC #### [facility] [address] [place] [address] Dr. Isabell Muñoz PLT 301 103/ul Normal 150-450 [facility] Comment on above: Performed By: #### C BC #### [facility] [address] [place] [address] Dr. Isabell Muñoz RBC 5.75 106/ul Critically high 4.20-5.40 [facility] Comment on above: Performed By: #### C BC #### [facility] [address] [address] [address] Isabell Muñoz WBC 7.1 103/ul Normal 4.0-11.0 [facility] Comment on above: Performed By: #### C BC #### [facility] [address] [address] [address] Isabell Muñoz PROF CHEM 8 (BAS METB)on Anion gap [Moles/Vol] 12.8 mmol/L Normal Th [facility] Comment on above: Performed By: #### B PAULINA, TSH ####[facility] [address] [address]DrRosa Muñoz Calcium [Mass/Vol] 8.6 mg/dL Normal 8.5-10.1 [facility] Comment on above: Performed By: #### B PAULINA, TSH ####[facility] [address] [address]DrRosa Muñoz Chloride [Moles/Vol] 106 mmol/L Normal 98-107 [facility] Comment on above: Performed By: #### B PAULINA, TSH ####[facility] [address] [address]DrRosa Muñoz CO2 [Moles/Vol] 29.3 mmol/L Normal 21.0-32.0 [facility] Comment on above: Performed By: #### B MP, TSH ####[facility] [address] [address]Dr. Isabell Muñoz Creatinine [Mass/Vol] 1.21 mg/dL Critically high 0.55-1.02 [facility] Comment on above: Performed By: #### B MP, TSH ####[facility] [address] [address]Dr. Isabell Muñoz EGFR-AF MOSOTHO 55 mL/min/1.73m2 Critically low >=60 [facility] Comment on above: Performed By: #### B MP, TSH ####[facility] [address] [address]Dr. Isabell Toni EGFR-NON AF MOSOTHO 46 mL/min/1.73m2 Critically low >=60 [facility] Comment on above: Performed By: #### B MP, TSH ####[facility] [address] [address]Dr. Noemimel Muñoz Glucose [Mass/Vol] 92 mg/dL Normal 74-106 [facility] Comment on above: Performed By: #### B MP, TSH ####[facility] [address] [place], [place] [address]Dr. Noemimel Muñoz Potassium [Moles/Vol] 4.1 mmol/L Normal 3.5-5.1 [facility] Comment on above: Performed By: #### B PAULINA, TSH ####[facility] [address] [place], [place] [address]Dr. Isabell Muñoz Sodium [Moles/Vol] 144 mmol/L Normal 136-145 [facility] Comment on above: Performed By: #### B PAULINA, TSH ####[facility] [address] [place], [place] [address]Dr. Isabell Toni Urea nitrogen [Mass/Vol] 18.0 mg/dL Normal 7.0-18.0 [facility] Comment on above: Performed By: #### B PAULINA, TSH ####[facility] [address] [place], [place] [address]Dr. Isabell Muñoz Urea nitrogen/Creatinine [Mass ratio] 14.9 mg/mg Normal [facility] Comment on above: Performed By: #### B MP, TSH ####[facility] [address] [address]Dr. Isabell Muñoz TSHon 01-27-2023 TSH 4.564 uIU/mL Critically high 0.358-3.740 [facility] Comment on above: Performed By: #### B MP, TSH ####[facility] Im[address] [place], [place] [address]Dr. Isabell Muñoz CBC AUTO DIFFon 01-17-2023 BASO # 0.1 103/ul Normal 0.0-0.1 [facility] Comment on above: Performed By: #### C BC ####[facility] [address] [place], [place] [address]Dr. Isabell Toni Basophils/100 WBC (Bld) 0.7 % Normal 0.2-2.0 [facility] Comment on above: Performed By: #### C BC ####[facility] [address] [place], [place] [address]Dr. Isabell Muñoz EO # 0.1 103/ul Normal 0.0-0.7 [facility] Comment on above: Performed By: #### C BC ####[facility] [address] [place], [place] [address]Dr. Isabell Muñoz Eosinophils/100 WBC (Bld) 1.3 % Normal 0.9-7.0 [facility] Comment on above: Performed By: #### C BC ####[facility] Iroy[address] [place], [place] [address]Dr. Isabell Muñoz Erythrocyte distribution width (RBC) [Ratio] 17.0 % Critically high 11.0-15.0 [facility] Comment on above: Performed By: #### C BC ####[facility] [address] [place], [place] [address]Dr. Noemimel Toni Hematocrit (Bld) [Volume fraction] 42.1 % Normal 36.0-48.0 [facility] Comment on above: Performed By: #### C BC ####[facility] [address] [place], [place] [address]Dr. Isabell Toni Hemoglobin (Bld) [Mass/Vol] 13.0 g/dL Normal 12.0-16.0 [facility] Comment on above: Performed By: #### C BC ####[facility] [address] [place], [place] [address]Dr. Isabell Muñoz IG # 0.04 10e3/ul Critically high 0.00-0.[address] [facility] Comment on above: Performed By: #### C BC ####[facility] T[address]zed[address] [place], [place] [address]DrRosa Muñoz IG % 0.4 % Normal 0.0-0.5 [facility] Comment on above: Performed By: #### C BC ####[facility] [address] [address]DrRosa Muñoz LYMPH # 3.5 103/ul Normal 1.2-3.8 [facility] Comment on above: Performed By: #### C BC ####[facility] [address] [address]DrRosa Muñoz Lymphocytes/100 WBC (Bld) 38.9 % Normal 20.5-60.0 [facility] Comment on above: Performed By: #### C BC ####[facility] [address] [address]DrRosa Muñoz MANUAL DIFF REQ NO Normal [facility] Comment on above: Performed By: #### C BC ####[facility] Qtzojeolye[address] [place], [place] [address]DrRosa Muñoz MCH (RBC) [Entitic mass] 24.0 pg Critically low 26.7-34.0 [facility] Comment on above: Performed By: #### C BC ####[facility] [address] [place], [place] [address]DrRosa Muñoz MCHC (RBC) [Mass/Vol] 30.9 g/dL Normal 29.9-35.2 [facility] Comment on above: Performed By: #### C BC ####[facility] [address] [address]DrRosa Muñoz MCV (RBC) [Entitic vol] 77.7 fL Critically low 81.0-99.0 [facility] Comment on above: Performed By: #### C BC ####[facility] [address] [place], [place] [address]DrRosa Muñoz MONO # 0.9 103/ul Critically high 0.3-0.[address] [facility] Comment on above: Performed By: #### C BC ####[facility] [address] [place], [place] [address]DrRosa Muñoz Monocytes/100 WBC (Bld) 10.1 % Normal 1.7-12.0 [facility] Comment on above: Performed By: #### C BC ####[facility] [address] [address]Dr. Isabell Muñoz NEUT # 4.4 103/ul Normal 1.4-6.5 [facility] Comment on above: Performed By: #### C BC ####[facility] [address] [address]Dr. Isabell Muñoz Neutrophils/100 WBC (Bld) 48.6 % Normal 43.0-75.0 [facility] Comment on above: Performed By: #### C BC ####[facility] [address] [address]Dr. Isabell Muñoz Platelet mean volume (Bld) [Entitic vol] 8.5 fL Critically low 9.5-13.5 [facility] Comment on above: Performed By: #### C BC ####[facility] [address] [address]Dr. Isabell Muñoz PLT 309 103/ul Normal 150-450 [facility] Comment on above: Performed By: #### C BC ####[facility] [address] [place], [place] [address]Dr. Isabell Muñoz RBC 5.42 106/ul Critically high 4.20-5.40 [facility] Comment on above: Performed By: #### C BC ####[facility] [address] [address]Dr. Isabell Muñoz WBC 9.0 103/ul Normal 4.0-11.0 [facility] Comment on above: Performed By: #### C BC ####[facility] [address] [address]Dr. Isabell Muñoz LIPID PROFILEon 01-17-2023 CHOL-HDL RATIO NORM SEE BELOW Normal [facility] Comment on above: Result Comment: 3.3 - 4.4 LOW RISK 4.4 - 7.1 AVERAGE RISK 7.1 - 11.0 MODERATE RISK >11.0 HIGH RISK Performed By: #### L IPID ####[facility] [address] [place], [place] [address]Jp. Isabell Muñoz Cholesterol [Mass/Vol] 159 mg/dL Normal <=200 [facility] Comment on above: Performed By: #### L IPID ####[facility] [address] [place], [place] [address]Jg. Isabell Muñoz Cholesterol in HDL [Mass/Vol] 45 mg/dL Normal 40-60 [facility] Comment on above: Performed By: #### L IPID ####[facility] [address] [place], [place] [address]Iy. Isabell Muñoz Cholesterol in LDL [Mass/Vol] 101.0 mg/dL Normal [facility] Comment on above: Performed By: #### L IPID ####[facility] [address] [place], [place] [address]Yd. Isabell Muñoz Cholesterol.total/Chol esterol in HDL [Mass ratio] 3.5 {ratio} Normal [facility] Comment on above: Performed By: #### L IPID ####[facility] [address] [place], [place] [address]Ir. Isabell Muñoz HDL NORMAL > or = 60 mg/dl - LOW CARDIOVASCULAR RISK <40 mg/dl - HIGH CARDIOVASCULAR RISK Normal [facility] Comment on above: Performed By: #### L IPID ####[facility] [address] [place], [place] [address]Nb. Isabell Muñoz LDL CALC NORMAL SEE BELOW Normal [facility] Comment on above: Result Comment: <100 mg/dl OPTIMAL 100 - 129 mg/dl NEAR OR ABOVE OPTIMAL 130 - 159 mg/dl BORDERLINE HIGH 160 - 189 mg/dl HIGH >190 mg/dl VERY HIGH Performed By: #### L IPID ####[facility] [address] [place], [place] [address]Tj. Isabell Muñoz Triglyceride [Mass/Vol] 65 mg/dL Normal <=150 [facility] Comment on above: Performed By: #### L IPID ####[facility] [address] [place], [place] [address]En. Isabell Muñoz VLDL CALC 13.0 mg/dL Normal [facility] Comment on above: Performed By: #### L IPID ####[facility] [address] [address]Dr. Isabell Muoñz MAGNESIUMon 01-17-2023 Magnesium [Mass/Vol] 2.3 mg/dL Normal 1.8-2.4 [facility] Comment on above: Performed By: #### M G, CMP #### [facility] [address] [place] [address] Dr. Isabell Muñoz PROF 14(COMP METB)on 023 Albumin [Mass/Vol] 3.1 g/dL Critically low 3.4-5.0 [facility] Comment on above: Performed By: #### M Magnus, CMP #### [facility] [address] [place] [address] Dr. Isabell Muñoz Albumin/Globulin [Mass ratio] 0.9 {ratio} Normal [facility] Comment on above: Performed By: #### M Magnus, CMP #### [facility] [address] [place] [address] Dr. Isabell Muñoz ALP [Catalytic activity/Vol] 63 U/L Normal 46-116 [facility] Comment on above: Performed By: #### M Magnus, CMP #### [facility] [address] [place] [address] Dr. Isabell Muñoz ALT [Catalytic activity/Vol] 35 U/L Normal 14-59 [facility] Comment on above: Performed By: #### Geovanna Agudelo, CMP #### [facility] [address] [place] [address] Dr. Isabell Muñoz Anion gap [Moles/Vol] 10.6 mmol/L Normal [facility] Comment on above: Performed By: #### M G, CMP #### [facility] [address] [place] [address] Dr. Isabell Muñoz AST [Catalytic activity/Vol] 13 U/L Critically low 15-37 [facility] Comment on above: Performed By: #### M G, CMP #### [facility] [address] [place] [address] Dr. Isabell Muñoz Bilirubin [Mass/Vol] 0.4 mg/dL Normal 0.2-1.0 [facility] Comment on above: Performed By: #### M G, CMP #### [facility] [address] [place] [address] Dr. Isabell Muñoz Calcium [Mass/Vol] 8.1 mg/dL Critically low 8.5-10.1 [facility] e [facility] Comment on above: Performed By: #### M G, CMP #### [facility] [address] [place] [address] Dr. Isabell Muñoz Chloride [Moles/Vol] 105 mmol/L Normal 98-107 [facility] Comment on above: Performed By: #### M G, CMP #### [facility] [address] [place] [address] Dr. Isabell Muñoz CO2 [Moles/Vol] 26.8 mmol/L Normal 21.0-32.0 [facility] Comment on above: Performed By: #### M G, CMP #### [facility] [address] [place] [address] Dr. Isabell Muñoz Creatinine [Mass/Vol] 1.18 mg/dL Critically high 0.55-1.02 [facility] Comment on above: Performed By: #### M G, CMP #### [facility] [address] [place] [address] Dr. Isabell Muñoz EGFR-AF MOSOTHO 57 mL/min/1.73m2 Critically low >=60 [facility] Comment on above: Performed By: #### Geovanna G, CMP #### [facility] [address] [place] [address] Dr. Isabell Muñoz EGFR-NON AF MOSOTHO 47 mL/min/1.73m2 Critically low >=60 [facility] Comment on above: Performed By: #### M G, CMP #### [facility] [address] [place] [address] Dr. Isabell Muñoz Globulin (S) [Mass/Vol] 3.5 g/dL Normal [facility] Comment on above: Performed By: #### M G, CMP #### [facility] [address] [place], [place] [id number] Dr. Isabell Muñoz Glucose [Mass/Vol] 101 mg/dL Normal 74-106 [facility] Comment on above: Performed By: #### M G, CMP #### [facility] [address] [place] [address] Dr. Isabell Muñoz Potassium [Moles/Vol] 4.4 mmol/L Normal 3.5-5.1 [facility] Comment on above: Performed By: #### M G, CMP #### [facility] [address] [place] [address] Dr. Isabell Muoñz Protein [Mass/Vol] 6.6 g/dL Normal 6.4-8.2 [facility] Comment on above: Performed By: #### M G, CMP #### [facility] [address] [place] [address] Dr. Isabell Muñoz Sodium [Moles/Vol] 138 mmol/L Normal 136-145 [facility] Comment on above: Performed By: #### M G, CMP #### [facility] [address] [place] [address] Dr. Isabell Muñoz Urea nitrogen [Mass/Vol] 22.0 mg/dL Critically high 7.0-18.0 [facility] Comment on above: Performed By: #### M G, CMP #### [facility] [address] [place] [address] Dr. Isabell Muñoz Urea nitrogen/Creatinine [Mass ratio] 18.6 mg/mg Normal [facility] Comment on above: Performed By: #### M G, CMP #### [facility] [address] [place] [address] Dr. Isabell Muñoz TROPONIN, HIGH SENSITIVITYon 01-17-2023 HSTROP 5.2 pg/mL Normal 4.0-51.3 [facility] Comment on above: Result Comment: CUT- OFF POINTS HAVE BEEN ESTABLISHED BASED ON THE FOURTH UNIVERSAL DEFINITIONS OF MYOCARDIAL INFARCTION. THE UPPER REFERENCE LIMIT (URL) OF TROPONIN, DEFINED THE 99TH PERCENTILE OF cTnI DISTRIBUTION IN A REFERENCE POPULATION, HAS BEEN CONFIRMED THE DECISION THRESHOLD FOR MT DIAGNOSIS. Performed By: #### H STROPN ####[facility] [address] [id number]. Isabell Muñoz BNPon 01-16-2023 Natriuretic peptide B (Bld) [Mass/Vol] 29.0 pg/mL Normal <=900.0 [facility] Comment on above: Performed By: #### B PAID SEARCH MARKETING ANALYST, CK, HSTROPN, CMP #### [facility] [address] [address] [address] Isabell Muñoz CBC AUTO DIFFon 01-16-2023 BASO # 0.1 103/ul Normal 0.0-0.1 [facility] Comment on above: Performed By: #### C BC #### [facility] [address] [place] [address] Dr. Isabell Muñoz Basophils/100 WBC (Bld) 0.8 % Normal 0.2-2.0 [facility] Comment on above: Performed By: #### C BC #### [facility] [address] [place] [address] Dr. Isabell Muñoz EO # 0.1 103/ul Normal 0.0-0.7 [facility] Comment on above: Performed By: #### C BC #### [facility] [address] [place] [address] Dr. Isabell Muñoz Eosinophils/100 WBC (Bld) 0.6 % Critically low 0.9-7.0 [facility] Comment on above: Performed By: #### C BC #### [facility] [address] [place] [address] Dr. Isabell Muñoz Erythrocyte distribution width (RBC) [Ratio] 17.9 % Critically high 11.0-15.0 [facility] Comment on above: Performed By: #### C BC #### [facility] [address] [place] [address] Dr. Isabell Muñoz Hematocrit (Bld) [Volume fraction] 47.1 % Normal 36.0-48.0 [facility] Comment on above: Performed By: #### C BC #### [facility] [address] [place] [address] Dr. Isabell Muñoz Hemoglobin (Bld) [Mass/Vol] 14.6 g/dL Normal 12.0-16.0 [facility] Comment on above: Performed By: #### C BC #### [facility] [address] [place] [address] Dr. Isabell Muñoz IG # 0.06 10e3/ul Critically high 0.00-0.[address] [facility] Comment on above: Performed By: #### C BC #### [facility] [address] [place] [address] Dr. Isabell Muñoz IG % 0.6 % Critically high 0.0-0.[address] [facility] Comment on above: Performed By: #### C BC #### [facility] [address] [place] [address] Dr. Isabell Muñoz LYMPH # 3.3 103/ul Normal 1.2-3.8 [facility] Comment on above: Performed By: #### C BC #### [facility] [address] [place] [address] Dr. Isabell Muñoz Lymphocytes/100 WBC (Bld) 30.4 % Normal 20.5-60.0 [facility] Comment on above: Performed By: #### C BC #### [facility] [address] [place] [address] Dr. Isabell Muñoz MANUAL DIFF REQ NO Normal [facility] Comment on above: Performed By: #### C BC #### [facility] [address] [place] [address] Dr. Isabell Muñoz MCH (RBC) [Entitic mass] 23.9 pg Critically low 26.7-34.0 [facility] Comment on above: Performed By: #### C BC #### [facility] [address] [place] [address] Dr. Isabell Muñoz MCHC (RBC) [Mass/Vol] 31.0 g/dL Normal 29.9-35.2 [facility] Comment on above: Performed By: #### C BC #### [facility] [address] [place] [address] Dr. Isabell Muñoz MCV (RBC) [Entitic vol] 77.1 fL Critically low 81.0-99.0 [facility] Comment on above: Performed By: #### C BC #### [facility] [address] [address] [address] Isabell Muñoz MONO # 1.0 103/ul Critically high 0.3-0.[address] [facility] Comment on above: Performed By: #### C BC #### [facility] [address] [address] [address] Isabell Muñoz Monocytes/100 WBC (Bld) 9.1 % Normal 1.7-12.0 [facility] Comment on above: Performed By: #### C BC #### [facility] [address] [address] [address] Isabell Muñoz NEUT # 6.3 103/ul Normal 1.4-6.5 [facility] Comment on above: Performed By: #### C BC #### [facility] [address] [place] [address] Dr. Isabell Muñoz Neutrophils/100 WBC (Bld) 58.5 % Normal 43.0-75.0 [facility] Comment on above: Performed By: #### C BC #### [facility] [address] [address] [address] Isabell Muñoz Platelet mean volume (Bld) [Entitic vol] 8.5 fL Critically low 9.5-13.5 [facility] Comment on above: Performed By: #### C BC #### [facility] [address] [place] [address] Dr. Isabell Muñoz PLT 341 103/ul Normal 150-450 [facility] Comment on above: Performed By: #### C BC #### [facility] [address] [address] [address] Isabell Muñoz RBC 6.11 106/ul Critically high 4.20-5.40 [facility] Comment on above: Performed By: #### C BC #### [facility] [address] [address] [address] Isabell Muñoz WBC 10.7 103/ul Normal 4.0-11.0 [facility] Comment on above: Performed By: #### C BC #### [facility] [address] [address] [address] Isabell Muñoz CPKon 01-16-2023 CK [Catalytic activity/Vol] 167 U/L Normal 26-192 [facility] Comment on above: Performed By: #### B PAID SEARCH MARKETING ANALYST, CK, HSTROPN, CMP #### [facility] [address] [address] [address] Isabell Muñoz CTA CHEST WO W CONon 023 CTA CHEST WO W CON EXAMINATION: CTA CHEST WO W CON HISTORY: Shortness of breath . Patient had Covid infection a few weeks ago. COMPARISON: XR chest 10/30/2022. TECHNIQUE: Thin section transaxial slices were acquired through the chest with intravenous contrast per PE protocol. Coronal and sagittal reconstructed images were reviewed. FINDINGS: PULMONARY ARTERIES: There is good opacification of the pulmonary vasculature. No pulmonary arterial filling defects are present. LUNGS/AIRWAYS: No areas of consolidation, nodule or mass are seen. The central airways are patent. PLEURAL CAVITY: No pleural effusion or pneumothorax. HEART/PERICARDIUM: The heart is normal in size. No pericardial effusion. MEDIASTINAL/HILAR LYMPH NODES: No pathologically enlarged lymph nodes. CHEST WALL/AXILLA/LOWER NECK: Normal. VISUALIZED UPPER ABDOMEN: No acute abnormality. Postsurgical changes of stomach are seen. Status post cholecystectomy. BONES: No acute process.. IMPRESSION: 1. No evidence of pulmonary embolism. 2. No evidence of pneumonia. Electronically authenticated by: [facility] Date: 2023-01-16 18:35 Normal [facility] PROF 14(COMP METB)on 023 Albumin [Mass/Vol] 3.8 g/dL Normal 3.4-5.0 [facility] Comment on above: Performed By: #### B PAID SEARCH MARKETING ANALYST, CK, HSTROPN, CMP #### [facility] [address] [address] [address] Isabell Muñoz Albumin/Globulin [Mass ratio] 1.0 {ratio} Normal [facility] Comment on above: Performed By: #### B PAID SEARCH MARKETING ANALYST, CK, HSTROPN, CMP #### [facility] [address] [address] [address] Isabell Muñoz ALP [Catalytic activity/Vol] 75 U/L Normal 46-116 [facility] Comment on above: Performed By: #### B PAID SEARCH MARKETING ANALYST, CK, HSTROPN, CMP #### [facility] [address] [place] [address] Dr. Isabell Muñoz ALT [Catalytic activity/Vol] 37 U/L Normal 14-59 [facility] Comment on above: Performed By: #### B PAID SEARCH MARKETING ANALYST, CK, HSTROPN, CMP #### [facility] [address] [place] [address] Dr. Isabell Muñoz Anion gap [Moles/Vol] 14.5 mmol/L Normal Th [facility] Comment on above: Performed By: #### B PAID SEARCH MARKETING ANALYST, CK, HSTROPN, CMP #### [facility] [address] [place] [address] Dr. Isabell Muñoz AST [Catalytic activity/Vol] 17 U/L Normal 15-37 [facility] Comment on above: Performed By: #### B PAID SEARCH MARKETING ANALYST, CK, HSTROPN, CMP #### [facility] [address] [place] [address] Dr. Isabell Muñoz Bilirubin [Mass/Vol] 0.4 mg/dL Normal 0.2-1.0 [facility] Comment on above: Performed By: #### B PAID SEARCH MARKETING ANALYST, CK, HSTROPN, CMP #### [facility] [address] [place] [address] Dr. Isabell Muñoz Calcium [Mass/Vol] 8.5 mg/dL Normal 8.5-10.1 [facility] Comment on above: Performed By: #### B PAID SEARCH MARKETING ANALYST, CK, HSTROPN, CMP #### [facility] [address] [place] [address] Dr. Isabell Muñoz Chloride [Moles/Vol] 102 mmol/L Normal 98-107 [facility] Comment on above: Performed By: #### B PAID SEARCH MARKETING ANALYST, CK, HSTROPN, CMP #### [facility] [address] [place] [address] Dr. Isabell Muñoz CO2 [Moles/Vol] 25.6 mmol/L Normal 21.0-32.0 [facility] Comment on above: Performed By: #### B PAID SEARCH MARKETING ANALYST, CK, HSTROPN, CMP #### [facility] [address] [place] [address] Dr. Isabell Muñoz Creatinine [Mass/Vol] 1.79 mg/dL Critically high 0.55-1.02 [facility] Comment on above: Performed By: #### B PAID SEARCH MARKETING ANALYST, CK, HSTROPN, CMP #### [facility] [address] [place] [address] Dr. Isabell Muñoz EGFR-AF MOSOTHO 35 mL/min/1.73m2 Critically low >=60 The [facility] Comment on above: Performed By: #### B PAID SEARCH MARKETING ANALYST, CK, HSTROPN, CMP #### [facility] [address] [place] [address] Dr. Isabell Muñoz EGFR-NON AF [place] 29 mL/min/1.73m2 Critically low >=60 The [facility] Comment on above: Performed By: #### B PAID SEARCH MARKETING ANALYST, CK, HSTROPN, CMP #### [facility] [address] [place] [address] Dr. Isabell Muñoz Globulin (S) [Mass/Vol] 3.8 g/dL Normal The [facility] Comment on above: Performed By: #### B PAID SEARCH MARKETING ANALYST, CK, HSTROPN, CMP #### [facility] [address] [place] [address] Dr. Isabell Muñoz Glucose [Mass/Vol] 105 mg/dL Normal 74-106 [facility] Comment on above: Performed By: #### B PAID SEARCH MARKETING ANALYST, CK, HSTROPN, CMP #### [facility] [address] [place] [address] Dr. Isabell Muñoz Potassium [Moles/Vol] 5.1 mmol/L Normal 3.5-5.1 [facility] Comment on above: Performed By: #### B PAID SEARCH MARKETING ANALYST, CK, HSTROPN, CMP #### [facility] [address] [place] [address] Dr. Isabell Muñoz Protein [Mass/Vol] 7.6 g/dL Normal 6.4-8.2 [facility] Comment on above: Performed By: #### B PAID SEARCH MARKETING ANALYST, CK, HSTROPN, CMP #### [facility] [address] [address] [address] Isabell Muñoz Sodium [Moles/Vol] 137 mmol/L Normal 136-145 [facility] Comment on above: Performed By: #### B PAID SEARCH MARKETING ANALYST, CK, HSTROPN, CMP #### [facility] [address] [address] [address] Isabell Muñoz Urea nitrogen [Mass/Vol] 28.0 mg/dL Critically high 7.0-18.0 [facility] Comment on above: Performed By: #### B PAID SEARCH MARKETING ANALYST, CK, HSTROPN, CMP #### [facility] [address] [address] [address] Isabell Muñoz Urea nitrogen/Creatinine [Mass ratio] 15.6 mg/mg Normal The [facility] Comment on above: Performed By: #### B PAID SEARCH MARKETING ANALYST, CK, HSTROPN, CMP #### [facility] [address] [address] [address] Isabell Muñoz PROTIMEon 01-16-2023 INR Coag (PPP) [Relative time] 0.95 {INR} Normal The [facility] Comment on above: Performed By: #### P TT, PT ####[facility] [address] [address]DrRosa Muñoz INR GUIDELINES SEE BELOW Normal The [facility] Comment on above: Result Comment: PATO RED INR: 2.0 - 3.0 CONDITIONS NOT LISTED BELOW 2.5 - 3.5 FOR PROSTHETIC HEART VALVE REPLACEMENT 2.5 - 3.5 RECURRENT THROMBOSIS Performed By: #### P TT, PT ####[facility] [address] [address]Dr. Isabell Muñoz PT Coag (PPP) [Time] 10.1 s Normal 9.0-11.6 The [facility] Comment on above: Performed By: #### P TT, PT ####[facility] [address] [address]Dr. Isabell Muñoz PTTon 01-16-2023 aPTT Coag (Bld) [Time] 26.7 s Normal 22.3-36.2 Th e [facility] Comment on above: Performed By: #### P TT, PT ####[facility] [address] [id number]. Isabell Muñoz TROPONIN, HIGH SENSITIVITYon 01-16-2023 HSTROP 4.7 pg/mL Normal 4.0-51.3 [facility] Comment on above: Result Comment: CUT- OFF POINTS HAVE BEEN ESTABLISHED BASED ON THE FOURTH UNIVERSAL DEFINITIONS OF MYOCARDIAL INFARCTION. THE UPPER REFERENCE LIMIT (URL) OF TROPONIN, DEFINED THE 99TH PERCENTILE OF cTnI DISTRIBUTION IN A REFERENCE POPULATION, HAS BEEN CONFIRMED THE DECISION THRESHOLD FOR MT DIAGNOSIS. Performed By: #### H STROPN ####[facility] [address] [place], [place] [address]Gw. Isabell Muñoz HSTROP 4.7 pg/mL Normal 4.0-51.3 [facility] Comment on above: Result Comment: CUT- OFF POINTS HAVE BEEN ESTABLISHED BASED ON THE FOURTH UNIVERSAL DEFINITIONS OF MYOCARDIAL INFARCTION. THE UPPER REFERENCE LIMIT (URL) OF TROPONIN, DEFINED THE 99TH PERCENTILE OF cTnI DISTRIBUTION IN A REFERENCE POPULATION, HAS BEEN CONFIRMED THE DECISION THRESHOLD FOR MT DIAGNOSIS. Performed By: #### B PAID SEARCH MARKETING ANALYST, CK, HSTROPN, CMP #### [facility] [address] [address] [address] Isabell Muñoz [facility] DIGITAL DIAGNOSTIC UNILATERAL RIGHTon 12-02-2021 [facility] DIGITAL DIAGNOSTIC UNILATERAL RIGHT EXAMINATION: DIAGNOSTIC DIGITAL RIGHT BREAST MAMMOGRAM WITH [...] imaging. No suspicious findings on this exam. IMPRESSION: No mammographic evidence of malignancy BIRADS: BIRADS - CATEGORY 1 Negative. Normal interval follow-up is recommended in 12 months. OVERALL ASSESSMENT - NEGATIVE A letter of notification will be sent to the patient regarding the results. [employer] recommends annual mammograms for women 40 years and older. Interpreted by: Dmitri Gaston DO Signed by: Dmitri Gaston DO 12/02/21 Final result Normal [facility] No mammographic evidence of malignancy BIRADS: BIRADS - CATEGORY 1 Negative. Normal interval follow-up is recommended in 12 months. OVERALL ASSESSMENT - NEGATIVE A letter of notification will be sent to the patient regarding the results. [employer] recommends annual mammograms for women 40 years and older. [facility] EXAMINATION: DIAGNOSTIC DIGITAL RIGHT BREAST MAMMOGRAM WITH [...] imaging. No suspicious findings on this exam. [facility] Radiology Study observation (narrative) [employer] Phone: [facility] DIGITAL DIAGNOSTIC UNILATERAL RIGHTOrdered By: Dmitri Gaston on 12-02-2021 [facility] DIGITAL SCREEN SELF REFERRAL W OR WO CAD BILATERALon 11-27-2021 [facility] DIGITAL SCREEN SELF REFERRAL W OR WO CAD BILATERAL EXAMINATION: SCREENING DIGITAL BILATERAL MAMMOGRAM WITH TOMOSYNTHESIS, 11/25/2021 TECHNIQUE: Screening mammography of the bilateral breasts was performed with tomosynthesis. 2D standard and 3D tomosynthesis combination imaging performed through both breasts in the MLO and CC projection. Computer aided detection was utilized in the interpretation of this exam. COMPARISON: July 17, 2020 and June 24, 2019 HISTORY: Screening. FINDINGS: The breasts are composed of scattered fibroglandular density. New retroareolar focal asymmetry right breast outer aspect. Left breast demonstrates no concerning findings. No suspicious calcification in either breast. IMPRESSION: Focal asymmetry outer retroareolar right breast. Recommend true lateral and spot compressed CC and MLO views for complete evaluation with possible progression to ultrasound. BIRADS: BIRADS - CATEGORY 0 Incomplete: Needs Additional Imaging Evaluation OVERALL ASSESSMENT - INCOMPLETE:NEED ADDITIONAL IMAGING EVALUATION. Interpreted by: Dmitri Gaston DO Signed by: Dmitri Gaston DO 11/27/21 Final result Normal [facility] Focal asymmetry outer retroareolar right breast. Recommend true lateral and spot compressed CC and MLO views for complete evaluation with possible progression to ultrasound. BIRADS: BIRADS - CATEGORY 0 Incomplete: Needs Additional Imaging Evaluation OVERALL ASSESSMENT - INCOMPLETE:NEED ADDITIONAL IMAGING EVALUATION. [facility] EXAMINATION: SCREENING DIGITAL BILATERAL MAMMOGRAM WITH TOMOSYNTHESIS, 11/25/2021 TECHNIQUE: Screening mammography of the bilateral breasts was performed with tomosynthesis. 2D standard and 3D tomosynthesis combination imaging performed through both breasts in the MLO and CC projection. Computer aided detection was utilized in the interpretation of this exam. COMPARISON: July 17, 2020 and June 24, 2019 HISTORY: Screening. FINDINGS: The breasts are composed of scattered fibroglandular density. New retroareolar focal asymmetry right breast outer aspect. Left breast demonstrates no concerning findings. No suspicious calcification in either breast. [facility] DIGITAL SCREEN SELF REFERRAL W OR WO CAD BILATERALOrdered By: Dmitri Gaston on 11-27-2021 [facility] Work Phone: Lipid Profileon 11-26-2021 Cholesterol [Mass/Vol] 286 mg/dL High <200 [facility] Comment on above: Result Comment: Cholesterol Guidelines: <200 Desirable 200-240 Borderline >240 Undesirable Performed By: #### C DP, CP #### [facility] [address] [place] [address] Backhoe Operator: Demarcus Peter MD #### LIPR #### [facility] [employer] [address] [place] [id number] Backhoe Operator: Deo Montalvo MD Cholesterol in HDL [Mass/Vol] 40 mg/dL Low >40 [facility] Comment on above: Result Comment: HDL Guidelines: <40 Undesirable 40-59 Borderline >59 Desirable Performed By: #### C DP, CP #### [facility] [address] [place] [address] Backhoe Operator: Demarcus Peter MD #### LIPR #### [facility] [employer] [address] [place] [address] Backhoe Operator: Deo Montalvo MD Cholesterol in LDL [Mass/Vol] 212 mg/dL High 0-130 [facility] Comment on above: Result Comment: LDL Guidelines: <100 Desirable 100-129 Near to/above Desirable 130-159 Borderline >159 Undesirable Direct (measured) LDL and calculated LDL are not interchangeable tests. Performed By: #### C DP, CP #### [facility] [address] [place], [place] [phone] Backhoe Operator: Demarcus Peter MD #### LIPR #### [address] [address] Backhoe Operator: Deo Montalvo MD Cholesterol.total/Chol esterol in HDL [Mass ratio] 7.2 {ratio} High <5 [facility] Comment on above: Performed By: #### C DP, CP #### [facility] [address] [place] [address] [address] [place], [place] [phone] Backhoe Operator: Demarcus Peter MD #### LIPR #### [address] [address] Backhoe Operator: Deo Montalvo MD Triglyceride [Mass/Vol] 169 mg/dL High <150 [facility] Comment on above: Result Comment: Triglyceride Guidelines: <150 Desirable 150-199 Borderline 200-499 High >499 Very high Based on AHA Guidelines for fasting triglyceride, June 2012. Performed By: #### C DP, CP #### [facility] [address] [place], [place] [id number] Backhoe Operator: Demarcus Peter MD #### LIPR #### [address] [place] [address] Backhoe Operator: Deo Montalvo MD CBC with Auto Differentialon 11-25-2021 Absolute Eos # 0.15 [facility] Absolute Immature Granulocyte <0.03 [facility] Absolute Lymph # 2.66 [facility] alth Absolute [place] # 0.55 [facility] Basophils (Bld) [#/Vol] 0.05 10*3/uL [facility] Basophils/100 WBC (Bld) 1 % 0 - 2 % [facility] Eosinophils/100 WBC (Bld) 2 % 1 - 4 % [facility] Hematocrit (Bld) [Volume fraction] 46.6 % 36.3 - 47.1 % [facility] Hemoglobin.gastrointes tinal spec 1 Ql (Stl) 13.9 g/dL 11.9 - 15.1 g/dL [facility] Immature granulocytes/100 WBC (Bld) 0 % 0 [facility] Interpretation and review of laboratory results Abnormal [facility] Lymphocytes/100 WBC (Bld) 41 % 24 - 43 % [facility] MCH (RBC) [Entitic mass] 23.7 pg Low 25.2 - 33.5 pg [facility] MCHC (RBC) [Mass/Vol] 29.8 g/dL 28.4 - 34.8 g/dL [facility] MCV (RBC) [Entitic vol] 79.5 fL Low 82.6 - 102.9 fL [facility] Monocytes/100 WBC (Bld) 9 % 3 - 12 % [facility] NRBC Automated 0.0 0.0 per 100 WBC [facility] Platelet distribution width (Bld) [Ratio] 15.9 % High 11.8 - 14.4 % [facility] Platelet mean volume (Bld) [Entitic vol] 9.0 fL 8.1 - 13.5 fL [facility] Platelets (Bld) [#/Vol] 290 10*3/uL [facility] RBC (Bld) [#/Vol] 5.86 10*6/uL High 3.95 - 5.1 1 m/uL [facility] Segmented neutrophils/100 WBC (Bld) 47 % 36 - 65 % [facility] Segs Absolute 3.04 [facility] h WBC (Bld) [#/Vol] 6.5 10*3/uL [facility] CBC with Diffon 11-25-2021 Abs. Basophil 0.05 k/uL Normal 0.00-0.20 [facility] Comment on above: Performed By: #### C DP, CP #### [address] [place] [place] [address] Backhoe Operator: Demarcus Peter MD #### LIPR #### [address] [phone] Backhoe Operator: Deo Montalvo MD Abs.Imm.Granulocyte <0.03 Normal 0.00-0.30 [facility] Comment on above: Performed By: #### C DP, CP #### [address] [place] [phone] Backhoe Operator: Demarcus Peter MD #### LIPR #### [place] [address] Backhoe Operator: Deo Montalvo MD Abs.Neutrophil (Seg) 3.04 k/uL Normal 1.50-8.10 [facility] Comment on above: Performed By: #### C DP, CP #### [address] [place] [address] Backhoe Operator: Demarcus Peter MD #### LIPR #### [place] [address] Backhoe Operator: Deo Montalvo MD Basophils/100 WBC (Bld) 1 % Normal 0-2 [facility] Comment on above: Performed By: #### C DP, CP #### [address] [place] [phone] Backhoe Operator: Demarcus Peter MD #### LIPR #### [place] [address] Backhoe Operator: Deo Montalvo MD Eosinophils (Bld) [#/Vol] 0.15 10*3/uL Normal 0.00-0.44 [facility] Comment on above: Performed By: #### C DP, CP #### [facility] [address] [place] [address] [address] [phone] Backhoe Operator: Demarcus Peter MD #### LIPR #### [address] [id number] Backhoe Operator: Deo Montalvo MD Eosinophils/100 WBC (Bld) 2 % Normal 1-4 [facility] Comment on above: Performed By: #### C DP, CP #### [address] [place] [phone] Backhoe Operator: Demarcus Peter MD #### LIPR #### [address] [address] Backhoe Operator: Deo Montalvo MD Erythrocyte distribution width (RBC) [Ratio] 15.9 % High 11.8-14.4 [facility] Comment on above: Performed By: #### C DP, CP #### [address] [phone] ( Backhoe Operator: Demarcus Peter MD #### LIPR #### [address] [address] Backhoe Operator: Deo Montalvo MD Hematocrit (Bld) [Volume fraction] 46.6 % Normal 36.3-47.1 [facility] Comment on above: Performed By: #### C DP, CP #### [address] [place] [phone] Backhoe Operator: Demarcus Peter MD #### LIPR #### [address] [phone] Backhoe Operator: Deo Montalvo MD Hemoglobin (Bld) [Mass/Vol] 13.9 g/dL Normal 11.9-15.1 [facility] Comment on above: Performed By: #### C DP, CP #### [address] [place] [phone] Backhoe Operator: Demarcus Peter MD #### LIPR #### [address] [address] Backhoe Operator: Deo Montalvo MD Immature granulocytes/100 WBC (Bld) 0 % Normal 0 [facility] Comment on above: Performed By: #### C DP, CP #### [facility] [address] [place] [phone] Backhoe Operator: Demarcus Peter MD #### LIPR #### [address] [address] Backhoe Operator: Deo Montalvo MD Lymphocytes (Bld) [#/Vol] 2.66 10*3/uL Normal 1.10-3.70 [facility] Comment on above: Performed By: #### C DP, CP #### [facility] [address] [place] [address] [place] [address] Backhoe Operator: Demarcus Peter MD #### LIPR #### [address] [address] Backhoe Operator: Deo Montalvo MD Lymphocytes/100 WBC (Bld) 41 % Normal 24-43 [facility] Comment on above: Performed By: #### C DP, CP #### [facility] [address] [place] [address] Dr. [address] [phone] ( Backhoe Operator: Demarcus Peter MD #### LIPR #### [address] [address] Backhoe Operator: Deo Montalvo MD MCH (RBC) [Entitic mass] 23.7 pg Low 25.2-33.5 [facility] Comment on above: Performed By: #### C DP, CP #### [facility] [address] [phone] ( Backhoe Operator: Demarcus Peter MD #### LIPR #### [address] [place] [address] Backhoe Operator: Deo Montalvo MD MCHC (RBC) [Mass/Vol] 29.8 g/dL Normal 28.4-34.8 [facility] Comment on above: Performed By: #### C DP, CP #### [facility] [address] [place] [address] [address] [place], [place] [phone] Backhoe Operator: Demarcus Peter MD #### LIPR #### [address] [address] Backhoe Operator: Deo Montalvo MD MCV (RBC) [Entitic vol] 79.5 fL Low 82.6-102.9 [facility] Comment on above: Performed By: #### C DP, CP #### [facility] [address] [place] [address] [address] [place], [place] [phone] Backhoe Operator: Demarcus Peter MD #### LIPR #### [address] [address] Backhoe Operator: Deo Montalvo MD Monocytes (Bld) [#/Vol] 0.55 10*3/uL Normal 0.10-1.20 [facility] Comment on above: Performed By: #### C DP, CP #### [address] [place], [place] [phone] Backhoe Operator: Demarcus Peter MD #### LIPR #### [address] [address] Backhoe Operator: Deo Montalvo MD Monocytes/100 WBC (Bld) 9 % Normal 3-12 [facility] Comment on above: Performed By: #### C DP, CP #### [address] [place], [place] [phone] Backhoe Operator: Demarcus Peter MD #### LIPR #### [address] [address] Backhoe Operator: Deo Montalvo MD Neutrophil (Seg) 47 % Normal 36-65 [facility] Comment on above: Performed By: #### C DP, CP #### [facility] [address] [place], [place] [phone] Backhoe Operator: Demarcus Peter MD #### LIPR #### [address] [address] Backhoe Operator: Deo Montalvo MD NRBC Automated 0.0 per 100 WBC Normal 0.0 [facility] Comment on above: Performed By: #### C DP, CP #### [facility] [address] [place] [address] Dr. [address] [phone] Backhoe Operator: Demarcus Peter MD #### LIPR #### [address] [address] Backhoe Operator: Deo Montalvo MD Platelet mean volume (Bld) [Entitic vol] 9.0 fL Normal 8.1-13.5 [facility] Comment on above: Performed By: #### C ALMA, CP #### [address] [place], [place] [phone] Backhoe Operator: Demarcus Peter MD #### LIPR #### [address] [address] Backhoe Operator: Deo Montalvo MD Platelets (Bld) [#/Vol] 290 10*3/uL Normal 138-453 [facility] Comment on above: Performed By: #### C DP, CP #### [facility] [address] [place] [address] [address] [place], [place] 1143983 Backhoe Operator: Demarcus Peter MD #### LIPR #### [address] [address] Backhoe Operator: Deo Montalvo MD RBC (Bld) [#/Vol] 5.86 10*6/uL High 3.95-5.11 [facility] Comment on above: Performed By: #### C ALMA, CP #### [address] [place] [address] Backhoe Operator: Demarcus Peter MD #### LIPR #### [address] [phone] Backhoe Operator: Deo Montalvo MD WBC (Bld) [#/Vol] 6.5 10*3/uL Normal 3.5-11.3 [facility] Comment on above: Performed By: #### C ALMA, CP #### [address] [place] [address] Backhoe Operator: Demarcus Peter MD #### LIPR #### [address] [phone] Backhoe Operator: Deo Montalvo MD Comp Metabolic Profon 2021 (cont.) [facility] Comment on above: Result Comment: Aver age GFR for 50-59 years old: 93 mL/min/1.73sq m Chronic Kidney Disease: <60 mL/min/1.73sq m Kidney failure: <15 mL/min/1.73sq m eGFR calculated using average adult body mass. Additional eGFR calculator available at: http://www.MediaPass.Spontaneously/multiple_crcl_2011.htm Performed By: #### C ALMA, CP #### [address] [place] [address] Backhoe Operator: Demarcus Peter MD #### LIPR #### [address] [place], [place] [phone] Backhoe Operator: Deo Montalvo MD Albumin [Mass/Vol] 4.1 g/dL Normal 3.5-5.2 [facility] Comment on above: Performed By: #### C ALMA, CP #### [address] [place], [place] 1354583 Backhoe Operator: Demarcus Peter MD #### LIPR #### [address] [place] [address] Backhoe Operator: Deo Montalvo MD Albumin/Glob Ratio 1.4 Normal 1.0-2.5 [facility] Comment on above: Performed By: #### C DP, CP #### [address] [place] [address] Backhoe Operator: Demarcus Peter MD #### LIPR #### [address] [address] Backhoe Operator: Deo Montalvo MD Alkaline Phos 56 U/L Normal 35-104 [facility] Comment on above: Performed By: #### C DP, CP #### [address] [place] [address] Backhoe Operator: Demarcus Peter MD #### LIPR #### [address] [address] Backhoe Operator: Deo Montalvo MD ALT [Catalytic activity/Vol] 17 U/L Normal 5-33 [facility] Comment on above: Performed By: #### C DP, CP #### [address] [place] [address] Backhoe Operator: Demarcus Peter MD #### LIPR #### [address] [address] Backhoe Operator: Deo Montalvo MD Anion gap [Moles/Vol] 9 mmol/L Normal 9-17 [facility] Comment on above: Performed By: #### C DP, CP #### [address] [place], [place] [id number] Backhoe Operator: Demarcus Peter MD #### LIPR #### [address] [place] [address] Backhoe Operator: Deo Montalvo MD AST [Catalytic activity/Vol] 12 U/L Normal <32 [facility] Comment on above: Performed By: #### C DP, CP #### [facility] [address] [place], [place] [phone] Backhoe Operator: Demarcus Peter MD #### LIPR #### [address] [address] Backhoe Operator: Deo Montalvo MD Bilirubin [Mass/Vol] 0.39 mg/dL Normal 0.3-1.2 [facility] Comment on above: Performed By: #### C DP, CP #### [facility] [address] [place] [address] [address] [place], [place] [phone] Backhoe Operator: Demarcus Peter MD #### LIPR #### [address] [address] Backhoe Operator: Deo Montalvo MD BUN/CRE Ratio 16 Normal 9-20 [facility] Comment on above: Performed By: #### C DP, CP #### [facility] [address] [place] [address] [place], [place] [phone] Backhoe Operator: Demarcus Peter MD #### LIPR #### [address] [address] Backhoe Operator: Deo Montalvo MD Calcium [Mass/Vol] 9.2 mg/dL Normal 8.6-10.4 [facility] Comment on above: Performed By: #### C DP, CP #### [facility] [address] [place] [address] Backhoe Operator: Demarcus Peter MD #### LIPR #### [address] [address] Backhoe Operator: Deo Montalvo MD Chloride [Moles/Vol] 102 mmol/L Normal 98-107 [facility] Comment on above: Performed By: #### C DP, CP #### [facility] [address] [place], [place] [phone] Backhoe Operator: Demarcus Peter MD #### LIPR #### [address] [phone] Backhoe Operator: Deo Montalvo MD CO2 [Moles/Vol] 29 mmol/L Normal 20-31 [facility] Comment on above: Performed By: #### C DP, CP #### [facility] [address] [place], [place] [phone] Backhoe Operator: Demarcus Peter MD #### LIPR #### [address] [phone] Backhoe Operator: Deo Montalvo MD Creatinine [Mass/Vol] 0.79 mg/dL Normal 0.50-0.90 [facility] Comment on above: Performed By: #### C DP, CP #### [facility] [address] [place] [address] [address] [place], [place] [phone] Backhoe Operator: Demarcus Peter MD #### LIPR #### [address] [address] Backhoe Operator: Deo Montalvo MD GFR, Amer >60 Normal >60 [facility] Comment on above: Performed By: #### C DP, CP #### [facility] [address] [place], [place] [phone] Backhoe Operator: Demarcus Peter MD #### LIPR #### [address] [address] Backhoe Operator: Deo Montalvo MD GFR,non Amer >60 Normal >60 [facility] Comment on above: Performed By: #### C DP, CP #### [address] [place], [place] [phone] Backhoe Operator: Demarcus Peter MD #### LIPR #### [address] [address] Backhoe Operator: Deo Montalvo MD Glucose [Mass/Vol] 88 mg/dL Normal 70-99 [facility] Comment on above: Performed By: #### C DP, CP #### [address] [place], [place] [phone] Backhoe Operator: Demarcus Peter MD #### LIPR #### [address] [address] Backhoe Operator: Deo Montalvo MD Potassium [Moles/Vol] 4.3 mmol/L Normal 3.7-5.3 [facility] Comment on above: Performed By: #### C DP, CP #### [address] [place], [place] [phone] Backhoe Operator: Demarcus Peter MD #### LIPR #### [address] [address] Backhoe Operator: Deo Montalvo MD Protein [Mass/Vol] 7.0 g/dL Normal 6.4-8.3 [facility] Comment on above: Performed By: #### C DP, CP #### [address] [place], [place] [phone] Backhoe Operator: Demarcus Peter MD #### LIPR #### [address] [address] Backhoe Operator: Deo Montalvo MD Sodium [Moles/Vol] 140 mmol/L Normal 135-144 [facility] Comment on above: Performed By: #### C DP, CP #### [address] [place], [place] [phone] Backhoe Operator: Demarcus Peter MD #### LIPR #### [facility] [address] [place], [place] [phone] Backhoe Operator: Deo Montalvo MD Staging: Normal [facility] Comment on above: Result Comment: Stag e 1: Some kidney damage normal GFR Stage 2: Mild kidney damage GFR 60-89 Stage 3: Moderate kidney damage GFR 30-59 Stage 4: Severe kidney damage GFR 15-29 Stage 5: Severe kidney damage GFR <15 ESRD - chronic treatment by dialysis or transplant Performed By: #### C DP, CP #### [facility] [address] [place] [address] Backhoe Operator: Demarcus Peter MD #### LIPR #### [facility] [address] [place], [place] [phone] Backhoe Operator: Deo Montalvo MD Urea nitrogen [Mass/Vol] 13 mg/dL Normal 6-20 [facility] Comment on above: Performed By: #### C DP, CP #### [facility] [address] [place], [place] [phone] Backhoe Operator: Demarcus Peter MD #### LIPR #### [address] [place], [place] [phone] Backhoe Operator: Deo Montalvo MD Comprehensive Metabolic Pane [facility] 11-25-2021 Albumin [Mass/Vol] 4.1 g/dL 3.5 - 5.2 g/dL [facility] Albumin/Globulin [Mass ratio] 1.4 {ratio} [facility] ALP (Bld) [Catalytic activity/Vol] 56 U/L 35 - 104 U/L [facility] ALT [Catalytic activity/Vol] 17 U/L 5 - 33 U/L [facility] Anion gap [Moles/Vol] 9 mmol/L 9 - 17 mmol/L [facility] AST [Catalytic activity/Vol] 12 U/L <32 [facility] Bilirubin [Mass/Vol] 0.39 mg/dL 0.3 - 1 .2 mg/dL [facility] Calcium [Mass/Vol] 9.2 mg/dL 8.6 - 10. 4 mg/dL [facility] Chloride [Moles/Vol] 102 mmol/L 98 - 10 7 mmol/L [facility] CO2 [Moles/Vol] 29 mmol/L 20 - 31 mmol/L [facility] Creatinine [Mass/Vol] 0.79 mg/dL 0.50 - 0.90 mg/dL [facility] Free PSA/Total PSA [Mass fraction] 7.0 g/dL 6.4 - 8.3 g/dL [facility] GFR >60 >60 mL/min [facility] GFR Non- >60 >60 mL/min [facility] Glucose [Mass/Vol] 88 mg/dL 70 - 99 mg/dL [facility] Potassium [Moles/Vol] 4.3 mmol/L 3.7 - 5.3 mmol/L [facility] Sodium [Moles/Vol] 140 mmol/L 135 - 144 mmol/L [facility] Urea nitrogen (BldV) [Mass/Vol] 13 mg/dL 6 - 20 mg/dL [facility] Urea nitrogen/Creatinine (Bld) [Mass ratio] 16 [facility] - Chemistry and C hemistry - challengeon 11-25-2021 GFR/1.73 sq M.predicted MDRD (S/P/Bld) [Vol rate/Area] [facility] Comment on above: Average GFR for 50-5 9 years old: 93 mL/min/1.73sq m Chronic Kidney Disease: <60 mL/min/1.73sq m Kidney failure: <15 mL/min/1.73sq m eGFR calculated using average adult body mass. Additional eGFR calculator available at: http://www.MediaPass.Spontaneously/multiple_crcl_2012.htm Stage 1: Some kidney damage normal GFR Stage 2: Mild kidney damage GFR 60-89 Stage 3: Moderate kidney damage GFR 30-59 Stage 4: Severe kidney damage GFR 15-29 Stage 5: Severe kidney damage GFR <15 ESRD - chronic treatment by dialysis or transplant [facility] LUIZA DIGITAL SCREEN SELF REFERRAL W OR WO CAD BILATERALon 11-25-2021 Radiology Study observation (narrative) [facility] Work Phone: No Panel InformationOrdered By: Marcelino Cheney on 04-11-2021 Mild degenerative changes No acute bony or joint space findings [employer] Phone: EXAMINATION: TWO XRAY VIEWS OF THE LEFT SHOULDER; TWO XRAY VIEWS OF THE LEFT CLAVICLE 04/11/2021 1:17 pm COMPARISON: None. HISTORY: ORDERING SYSTEM PROVIDED HISTORY: Contusion of left shoulder, initial encounter FINDINGS: There are mild degenerative changes of the left acromioclavicular joint with joint space compromise/spurring The bones and joints are otherwise unremarkable without definite acute fracture, dislocation, abnormal soft tissue calcification or bony destructive lesion [employer] Phone: Mehdi, Mhpn Incoming Radiant Results From [email or web address] - 04/11/2021 1:38 PM EDT EXAMINATION: TWO XRAY VIEWS OF THE LEFT SHOULDER; TWO XRAY VIEWS OF THE LEFT CLAVICLE 04/11/2021 1:17 pm COMPARISON: None. HISTORY: ORDERING SYSTEM PROVIDED HISTORY: Contusion of left shoulder, initial encounter FINDINGS: There are mild degenerative changes of the left acromioclavicular joint with joint space compromise/spurring The bones and joints are otherwise unremarkable without definite acute fracture, dislocation, abnormal soft tissue calcification or bony destructive lesion IMPRESSION: Mild degenerative changes No acute bony or joint space findings [employer] Phone: [employer] Phone: XR CLAVICLE LEFTon XR CLAVICLE LEFT EXAMINATION: TWO XRAY VIEWS OF THE LEFT SHOULDER; TWO XRAY VIEWS OF THE LEFT CLAVICLE 04/11/2021 1:17 pm COMPARISON: None. HISTORY: ORDERING SYSTEM PROVIDED HISTORY: Contusion of left shoulder, initial encounter FINDINGS: There are mild degenerative changes of the left acromioclavicular joint with joint space compromise/spurring The bones and joints are otherwise unremarkable without definite acute fracture, dislocation, abnormal soft tissue calcification or bony destructive lesion IMPRESSION: Mild degenerative changes No acute bony or joint space findings Interpreted by: Noreen Zamudio MD Signed by: Noreen Zamudio MD 04/11/21 Final result Normal [facility] XR RIBS LEFT (2 VIEWS)on XR RIBS LEFT (2 VIEWS) EXAMINATION: 3 XRAY VIEWS OF THE LEFT RIBS 04/11/2021 1:17 pm COMPARISON: None. HISTORY: ORDERING SYSTEM PROVIDED HISTORY: Contusion of left shoulder, initial encounter FINDINGS: The lungs are without consolidation or effusion. There is no pneumothorax. The mediastinal structures are unremarkable. The upper abdomen unremarkable. The extrathoracic soft tissues are unremarkable. There is no evidence for a displaced rib fracture. IMPRESSION: No acute cardiopulmonary process. No evidence for a displaced rib fracture. Interpreted by: Baldo De La Cruz MD Signed by: Baldo De La Cruz MD 04/11/21 Final result Normal [facility] XR RIBS LEFT (2 VIEWS)Ordere d By: Marcelino Cheney on 04-11-2021 No acute cardiopulmonary process. No evidence for a displaced rib fracture. [employer] Phone: EXAMINATION: 3 XRAY VIEWS OF THE LEFT RIBS 04/11/2021 1:17 pm COMPARISON: None. HISTORY: ORDERING SYSTEM PROVIDED HISTORY: Contusion of left shoulder, initial encounter FINDINGS: The lungs are without consolidation or effusion. There is no pneumothorax. The mediastinal structures are unremarkable. The upper abdomen unremarkable. The extrathoracic soft tissues are unremarkable. There is no evidence for a displaced rib fracture. [employer] Phone: Mehdi, Mhpn Incoming Radiant Results From [employer] - 04/11/2021 2:36 PM EDT EXAMINATION: 3 XRAY VIEWS OF THE LEFT RIBS 04/11/2021 1:17 pm COMPARISON: None. HISTORY: ORDERING SYSTEM PROVIDED HISTORY: Contusion of left shoulder, initial encounter FINDINGS: The lungs are without consolidation or effusion. There is no pneumothorax. The mediastinal structures are unremarkable. The upper abdomen unremarkable. The extrathoracic soft tissues are unremarkable. There is no evidence for a displaced rib fracture. IMPRESSION: No acute cardiopulmonary process. No evidence for a displaced rib fracture. [employer] Phone: [employer] Phone: XR SHOULDER LEFT (MIN 2 VIEW S)on 04-11-2021 XR SHOULDER LEFT (MIN 2 VIEWS) EXAMINATION: TWO XRAY VIEWS OF THE LEFT SHOULDER; TWO XRAY VIEWS OF THE LEFT CLAVICLE 04/11/2021 1:17 pm COMPARISON: None. HISTORY: ORDERING SYSTEM PROVIDED HISTORY: Contusion of left shoulder, initial encounter FINDINGS: There are mild degenerative changes of the left acromioclavicular joint with joint space compromise/spurring The bones and joints are otherwise unremarkable without definite acute fracture, dislocation, abnormal soft tissue calcification or bony destructive lesion IMPRESSION: Mild degenerative changes No acute bony or joint space findings Interpreted by: Noreen Zamudio MD Signed by: Noreen Zamudio MD 04/11/21 Final result Normal [facility] Coding Summary.on 10-13-2020 Coding Summary. CODING DATE: 10/12/2020 FINAL [facility] DSC STATUS: Home (Routine DC) PAYOR: Commercial Insurance ADMIT DX: REASON FOR VISIT DX: R60.9 Edema, unspecified FINAL DX: PRINCIPAL: R60.9 Edema, unspecified SECONDARY: M17.12 Unilateral primary osteoarthritis, left knee PYMT PROC APC STAT DESCRIPTION DOCTOR NAME DATE NOTE: The code number assigned matches the documented diagnosis and / or procedure in the patient's chart. However, the narrative phrase printed from the coding software may appear abbreviated, or result in slightly different terminology. Coded By: Leatha Grimaldo CphT Date Saved: 10/12/2020 10:12 pm Normal [facility] C Fluidon 10-07-2020 Fluid Culture Microbiology PROCEDURE: Fluid Culture [R1] SOURCE: Synov Fl BODY SITE: Knee L COLLECTED DATE/TIME: 10/04/2020 14:40 EST RECEIVED DATE/TIME: 10/04/2020 15:51 EST START DATE/TIME: 10/04/2020 15:51 EST FREE TEXT SOURCE: Left Knee Cherry SANCHEZ, Arnel Carey DO, Arnel Cisneros FINAL REPORTS Final Report [] Verified Date/Time: 10/07/2020 13:49 EST No growth at 3 days. STAINS Gram Stain Report [] Verified Date/Time: 10/05/2020 10:49 EST 2+ White Blood Cells No organisms seen. Performing Locations R1: [facility] at[facility], [address] [place] [address], [id number] , , [facility] Comment on above: Performed By: #### 2 [id number] #### [facility] [address] [place] [address] Crystal Examon 10-05-2020 Crystal Rare intracellular calcium pyrophosphate crystals identified. [facility] Comment on above: Performed By: #### 1 [id number] #### [facility] [address] [place] [address] Crystal Spec Source Knee L [facility] Comment on above: Performed By: #### 1 [id number] #### [facility] [address] [place] [address] Crystal Spec Type Synovial fluid Normal [facility] Comment on above: Performed By: #### 1 [id number] #### [facility] [address] [place] [address] BF Cell Cnton 10-04-2020 Clarity (Unsp spec) Turbid Normal [facility] Comment on above: Performed By: #### 2 [id number], [id number] #### [facility] [address] [place] [address] Color (Body fld) YELLOW Normal [facility] Comment on above: Performed By: #### 2 [id number], [id number] #### [facility] [address] [place] [address] RBC Auto (Body fld) [#/Vol] 3570 High <=0 [facility] Comment on above: Performed By: #### 2 [id number], [id number] #### [facility] [address] [place] [address] Specimen type Nom (Spec) Synovial fluid Normal [facility] Comment on above: Result Comment: left knee Performed By: #### 2 [id number], [id number] #### [facility] [address] [place] [address] WBC (Bld) [#/Vol] 335[address] 10*3/uL High <=0 [facility] Comment on above: Performed By: #### 2 [id number], [id number] #### [facility] [address] [place] [address] BF Diffon 10-04-2020 Lymphocytes Manual cnt (Body fld) [#/Vol] 5 % [facility] Comment on above: Order Comment: Order Added By Discern Expert. Performed By: #### 2 [id number], [id number] #### [facility] [address] [place] [address] Monocytes+Macrophages/ 100 leukocytes in Body fluid by Manual count 6 % [facility] Comment on above: Order Comment: Order Added By Discern Expert. Performed By: #### 2 [id number], [id number] #### [facility] [address] [place] [address] Segmented neutrophils Manual cnt (Body fld) [#/Vol] 89 % [facility] Comment on above: Order Comment: Order Added By Discern Expert. Performed By: #### 2 [id number], [id number] #### [facility] [address] [place] [address] Physician Orderon 10-04-2020 Physician Order [id number]:[id number] Normal [facility] Vital Signs Date Time Vital Sign Value Performing Clinician Facility 09-15-2024 09:12-0500 Body height 162.6 cm Derek Brambila MD Work Phone: [facility] 09-15-2024 09:12-0500 Body mass index (BMI) [Ratio] 36.9 kg/m2 Derek Brambila MD Work Phone: [facility] 09-15-2024 09:12-0500 Body weight 97.52 kg Derek Brambila MD Work Phone: [facility] 07-01-2024 11:01-0400 Body height 162.56 cm [facility] 07-01-2024 11:01-0400 Body mass index (BMI) [Ratio] 35.2 kg/m2 [facility] 07-01-2024 11:01-0400 Body weight 92.98 kg [facility] 07-01-2024 11:01-0400 Diastolic blood pressure 87 mm[Hg] [facility] 07-01-2024 11:01-0400 Heart rate 86 /min [facility] 07-01-2024 11:01-0400 Respiratory rate 12 /min [facility] 07-01-2024 11:01-0400 Systolic blood pressure 134 mm[Hg] [facility] 01-15-2024 14:47-0400 Body height 162.56 cm [facility] 01-15-2024 14:47-0400 Body mass index (BMI) [Ratio] 32.1 kg/m2 [facility] 01-15-2024 14:47-0400 Body weight 84.93 kg [facility] 01-15-2024 14:47-0400 Diastolic blood pressure 71 mm[Hg] [facility] 01-15-2024 14:47-0400 Heart rate 93 /min [facility] 01-15-2024 14:47-0400 Respiratory rate 12 /min [facility] 01-15-2024 14:47-0400 Systolic blood pressure 106 mm[Hg] [facility] 01-22-2023 09:45-0400 Body height 162.56 cm Marcelino Ball Other [facility] Other 01-22-2023 09:45-0400 Body mass index (BMI) [Ratio] 35.08 kg/m2 Marcelino Ball Other [facility] Other 01-22-2023 09:45-0400 Body weight 92.72 kg Marcelino Ball Other [facility] Other 01-22-2023 09:45-0400 Diastolic blood pressure 86 mm[Hg] Marcelino Ball Other [facility] Other 01-22-2023 09:45-0400 Respiratory rate 12 /min Marcelino Ball Other [facility] Other 01-22-2023 09:45-0400 Systolic blood pressure 122 mm[Hg] Marcelino Ball Other [facility] Other 01-08-2023 09:00-0400 Body height 162.56 cm Marcelino Ball Other [facility] Other 01-08-2023 09:00-0400 Body mass index (BMI) [Ratio] 34.6 kg/m2 Marcelino Ball Other [facility] Other 01-08-2023 09:00-0400 Body weight 91.45 kg Marcelino Ball Other [facility] Other 01-08-2023 09:00-0400 Diastolic blood pressure 77 mm[Hg] Marcelino [employer] Other [facility] Other 01-08-2023 09:00-0400 Respiratory rate 16 /min Marcelino [employer] Other [facility] Other 01-08-2023 09:00-0400 Systolic blood pressure 110 mm[Hg] Marcelino [employer] Other [facility] Other Encounters Encounter Date Encounter Type Care Provider Facility Start: 09-15-2024 End: 09-15-2024 Bamboo flowsheet Derek Brambila MD Work Phone: [facility] Start: 09-15-2024 End: 09-15-2024 Bamboo flowsheet Derek Brambila MD Work Phone: [facility] Start: 09-15-2024 End: 09-15-2024 ambulatory DEREK BRAMBILA Not Available Start: 09-15-2024 End: 09-15-2024 Office outpatient new 45 minutes Derek Brambila MD Work Phone: [facility] Comment on above: Intractable chronic migraine with aura with status migrainosus (CMS/HCC) (Primary Dx) Start: 08-18-2024 End: 08-18-2024 Bamboo flowsheet Ivone Jones SERVICE CASHIER[employer]ATIONSHIP MANAGEMENT LEAD Work Phone: [facility] Start: 08-18-2024 End: 08-18-2024 Bamboo flowsheet Ivone Jones SERVICE CASHIER-RELATIONSHIP MANAGEMENT LEAD Work Phone: [facility] Start: 08-18-2024 End: 08-18-2024 Office outpatient visit 15 minutes Ivone Jones SERVICE CASHIER-RELATIONSHIP MANAGEMENT LEAD Work Phone: [facility] Comment on above: Seborrheic keratosis (Primary Dx); Lentigines; Melanocytic nevus of trunk; Sebaceous hyperplasia of face Start: 08-18-2024 End: 08-18-2024 ambulatory IVONE JONES Not Available Start: 07-01-2024 End: 07-01-2024 ambulatory [facility] Work Phone: Start: 07-01-2024 End: 07-01-2024 Patient encounter procedure [facility] Work Phone: Start: 01-18-2024 End: 01-18-2024 ambulatory [facility] Work Phone: Start: 01-18-2024 End: 01-18-2024 Patient encounter procedure [facility] Work Phone: Start: 01-15-2024 End: 01-15-2024 ambulatory [facility] Work Phone: Start: 01-15-2024 End: 01-15-2024 Encounter for general adult medical examination without abnormal findings [facility] Start: 01-15-2024 End: 01-15-2024 Patient encounter procedure [facility] Work Phone: Start: 11-10-2023 Non-patient / Non-visit [facility] Work Phone: Start: 06-15-2023 End: 06-15-2023 ambulatory [facility] Other [facility] Other Start: 06-15-2023 Telephone encounter Marcelino Cheney [facility] Start: 05-31-2023 End: 05-31-2023 ambulatory Marcelino Cheney Other [facility] Other Start: 05-31-2023 Telephone encounter Marcelino Cheney [facility] Start: 05-11-2023 End: 05-11-2023 ambulatory Marcelino Cheney Other [facility] Other Start: 05-11-2023 Nursing evaluation o f patient and report Marcelino Cheney [facility] Start: 05-05-2023 End: 05-05-2023 ambulatory Marcelino Cheney Other [facility] Other Start: 05-05-2023 Telephone encounter Marcelino Cheney [facility] Start: 02-25-2023 End: 02-25-2023 ambulatory Marcelino Cheney Other [facility] Other Start: 02-25-2023 Telephone encounter Marcelino Cheney [facility] Start: 02-03-[address] MARCELINO CHENEY Facili ty:[facility]1 Start: 01-27-2023 End: 01-28-[address] MARCELINO CHENEY Facility:[facility] Start: 01-22-2023 End: 01-22-2023 ambulatory Marcelino Cheney Other [facility] Other Start: 01-22-2023 Office outpatient visit 25 minutes Marcelino Cheney [facility] Start: 01-16-2023 End: 01-17-[address] SHIVAM PEÑA . [facility] Other Start: 01-16-2023 Telephone encounter Marcelino Cheney [facility] Start: 01-08-2023 (WellA) Well Adult Marcelino Cheney [facility] Start: 01-08-2023 End: 01-08-2023 ambulatory Marcelino Cheney Other [facility] Other Start: 01-08-2023 Encounter for genera l adult medical examination without abnormal findings [facility]ino [facility] Start: 10-30-2022 End: 10-31-[address] MARCELINO CHENEY Facility:[facility] Start: 02-05-[address] MARCELINO CHENEY Facili ty:[facility]1 Start: 12-02-2021 End: 12-05-2021 [facility] Start: 12-02-2021 End: 12-04-2021 Subsequent hospital visit by physician Kelly Jackson Radiologist [facility] Comment on above: Abnormal mammogram Start: 11-25-2021 End: 11-28-2021 ambulatory [facility] Start: 11-25-2021 End: 11-27-2021 Subsequent hospital visit by physician Kelly Mamm[facility] Comment on above: Breast cancer screen ing by mammogram Start: 11-20-2021 Adult health examination Macrelino Cheney Other [facility] Other Start: 04-11-2021 End: 04-14-2021 ambulatory MARCELINO Jarquin DONALD [facility] Start: 04-11-2021 End: 04-13-2021 Subsequent hospital visit by physician Kelly Melo Dr Room 4 [facility] Radiology Comment on above: Contusion of left sh oulder, initial encounter; Contusion of left front wall of thorax, initial encounter Contusion of left sh oulder, initial encounter Procedures Date Procedure Procedure Detail Performing Clinician Start: 12-02-2021 End: 12-02-2021 Diagnostic mammography computer-aided detcj uni Marcelino Cheney DO Work Phone: Start: 11-25-2021 Comprehensive metabo lic panel Marcelino Cheney DO Work Phone: Start: 11-25-2021 Screening mammograph y bi 2-view breast inc cad Marcelino Cheney DO Work Phone: Start: 04-11-2021 End: 04-11-2021 Radex ribs unilateral 2 views Marcelino Cheney DO Work Phone: Start: 10-13-2017 Screening for malign ant neoplasm of colon Marcelino Cheney Other Start: 10-06-2017 General examination of patient Marcelino Cheney Other Start: 07-30-2015 Screening mammography B gloria Cheney Other Depression screening Ayaka Cheney Other Plan of Treatment Date Care Activity Detail Author Start: 11-25-2026 Lipid panel Lipid screen Yamileth pinzon Start: 08-21-2025 End: 08-21-2025 Patient encounter procedure 08/21/2025 11:25 AM EST Office Visit [facility] [address] [place] [phone] Ivone Jones, SERVICE CASHIER-RELATIONSHIP MANAGEMENT LEAD [address] [place], [place] [id number] [facility] Start: 11-07-2024 End: 11-07-2024 Telemedicine consultation with patient 11/07/2024 9:30 AM EST Telemedicine [facility] [address] [place] [address] Derek Brambila MD [address] [facility] [address] [place] [id number] [facility] Start: 09-15-2024 End: 09-15-2024 Patient encounter procedure 09/15/2024 9:00 AM EST Office Visit [facility] [address] [place] [phone] Derek Brambila MD [address] [facility] [address] [place] [id number] [facility] Start: 08-18-2024 End: 08-18-2024 Patient encounter procedure 08/18/2024 11:25 AM EST Office Visit [facility] [address] [place] [phone] Ivone Jones, SERVICE CASHIER-RELATIONSHIP MANAGEMENT LEAD [address] [place] [address] Arrived [facility] Comment on above: Arrived Start: 07-04-2024 Patient referral [facility] Work Phone: Start: 05-15-2024 Influenza vaccination Influenza Vacc ine (#1) [facility] Start: 12-03-2023 Screening for malign ant neoplasm of breast Breast cancer screen [facility] Start: 11-26-2023 Screening for malign ant neoplasm of breast Breast cancer screen [facility] Start: 12-02-2022 Screening for malign ant neoplasm of breast Mammogram [facility] Start: 05-19-2021 COVID-19 Vaccine (3 - Booster for Pfizer series) COVID-19 Vaccine (3 - Booster for Pfizer series) [facility] Start: 05-15-2021 Influenza vaccination Flu vaccine (# 1) [facility] Start: 2013 Screening for malign ant neoplasm of breast Breast cancer screen [facility] Start: 2013 Shingles Vaccine (1 of 2) Shingles Vaccine (1 of 2) [facility] Start: 2008 Screening for malign ant neoplasm of colon [facility] Start: 2003 Lipid panel Lipid screen [facility] Start: 1993 Screening for malign ant neoplasm of cervix [facility] Start: 1984 Screening for malign ant neoplasm of cervix [facility] Start: 1982 DTaP/Tdap/Td vaccine (1 - Tdap) DTaP/Tdap/Td vaccine (1 - Tdap) [facility] Start: 1978 HIV screening HIV screen [facility] Start: 1975 Depression Screen Depression Screen [facility] Start: 1963 Hepatitis C screening Hepatitis C sc reen [facility] Start: 1963 Screening for malign ant neoplasm of colon [facility] Comprehensive metabo lic 2000 panel - Serum or Plasma [facility] End: 11-25-2021 Lipid panel [facility] Work Phone: Comment on above: Once for 1 Occurrenc es starting 11/25/2021 until 11/25/2021 Patient referral [facility] Work Phone: [facility] Immunizations Immunization Date Immunization Notes Care Provider Puja stacyty 08-19-2024 influenza virus vaccine, unspecified formulation Derek Brambila MD Work Phone: [facility] 09-15-2023 influenza virus vaccine, unspecified formulation Ivone Phillipsesmer SERVICE CASHIER-RELATIONSHIP MANAGEMENT LEAD Work Phone: [facility] 06-12-2022 COVID-19 Pfizer (bivalent) Marcelino Cheney Other [facility] 06-12-2022 influenza, injectabl e, quadrivalent, preservative free [facility] 06-12-2022 influenza, injectabl e, quadrivalent, contains preservative Marcelino Cheney Other [facility] Other 08-14-2021 COVID-19 Vaccine Pfi zer - Documentation Purposes Only Marcelino Cheney Other [facility] 07-25-2021 influenza virus vaccine, split virus (incl. purified surface antigen) Marcelino Cheney Other [facility] Other 07-25-2021 influenza virus vaccine, unspecified formulation [facility] 12-17-2020 COVID-19, Pfizer Pur ple top, DILUTE for use, 12+ yrs, 30mcg/0.3mL dose [facility] Work Phone: 11-20-2020 COVID-19, Pfizer Pur ple top, DILUTE for use, 12+ yrs, 30mcg/0.3mL dose [facility] 05-28-2020 influenza virus vaccine, split virus (incl. purified surface antigen) Marcelino Cheney Other [facility] Other 05-28-2020 influenza virus vaccine, unspecified formulation [facility] 06-20-2019 influenza virus vaccine, split virus (incl. purified surface antigen) Marcelino Cheney Other [facility] Other 06-20-2019 influenza virus vaccine, unspecified formulation [facility] Payers Date Payer Category Payer Private Health Insurance GENERIC COMMERCIAL [id number] 2020 Private Health Insurance [id number] 1963 Unknown [id number] .173 1963 Unknown [id number] 2.16.840.1.744888.3.579.2 .173 1963 Unknown [id number] 2.16.840.1.084371.3.579.2 .173 1963 Unknown [id number] 2.16.840.1.303938.3.579.2 .173 1963 Unknown [id number] 2.16.840.1.034833.3.579.2 .173 1963 Unknown [id number] 2.16.840.1.239646.3.579.2 .173 1963 Unknown [id number] 2.16.840.1.782662.3.579.2 .173 1963 Unknown [id number] 2.16.840.1.778446.3.579.2 .173 1963 Unknown [id number] 2.16.840.1.375759.3.579.2 .593 1963 Unknown [id number] 2.16.840.1.927868.3.579.2 .593 1963 Unknown [id number] 2.16.840.1.670299.3.579.2 .593 1963 Unknown [id number] 2.16.840.1.320008.3.579.2 .593 1963 Unknown [id number] 2.16.840.1.801058.3.579.2 .593 1963 Unknown [id number] 2.16.840.1.636312.3.579.2 .593 1963 Unknown [id number] 2.16.840.1.809017.3.579.2 .1259 1963 Unknown [id number] 2.16.840.1.789628.3.579.2 .1259 1959 Self-pay 1959 Unknown [id number] Social History Date Type Detail Facility Tobacco smoking status [facility] Unknown if ever smoked [facility] Phone: Start: 1965 Sex Assigned At Not on file [facility] Phone: Start: 08-17-2023 Tobacco smoking status [facility] Tobacco smoking consumption unknown [facility] Phone: Start: 11-22-2021 End: 12-02-2021 Exposure to SARS-CoV-2 (event) Not sure [facility] Start: 08-08-2023 End: 09-15-2024 Sex Assigned At [facility] Start: 1965 Sex Assigned At Female F [facility] Start: 08-18-2023 End: 09-15-2024 Alcoholic beverage intake Current drinker of alcohol (finding) [facility] Start: 08-08-2023 End: 09-15-2024 History of Social function [facility] How often to you hav e a drink containing alcohol? 2-4 times a month [facility] How many standard drinks containing alcohol do you have on a typical day? 1 or 2 [facility] Frequency of Binge Drinking Not on file [facility] Start: 08-08-2023 Tobacco Comment Light tobacco smoker [facility] Start: 08-08-2023 Alcohol Comment caffeine: 1-2 cups per day coffee [facility] NEGATED: Highlighted rowStart: NEELAF History of tobacco use Passive smoker [facility] Clinical Notes 10-31-2022 to 09-15-2024 Derek Brambila MD - 09/15/2024 9:00 AM German Jones, SERVICE CASHIER-RELATIONSHIP MANAGEMENT LEAD - 08/18/2024 11:25 AM EST Note Date & Type Note Facility 09-15-2024 History of Presen t illness Narrative Images from the original note were not included. CHIEF COMPLAINT REASON FOR VISIT: Headaches HPI: Tiara Multani is a 59 y.o. female who presents for a new patient consultation referred by Dr. Ramón Cheney for headaches. She states she has had headaches for many years. She states she did see Dr. Mitch Brambila for these many years. She states they have not changed much. She is still getting 3-4 a week. Admits to some nausea and vomiting but not as often. She does get the ocular migraines on the left side and blurry vision on the left side. She states it will always be that left side. Admits to sensitivity to light and sound. She states sometimes they will last all day to a few hours. She states she will usually work through them unless they are ocular migraines and she cannot work. She states she will have to lay down. She states they are not as often. She is not currently taking anything. She states she was taking Excedrin and Dr. Cheney wanted her to stop taking it,. She states she is on escitalopram. She states her mother had them really bad and her middle son had severe ones. Excedrin would help sometimes. But she states she would get rebound headaches with the Excedrin. She states she does travel a lot for work. Denies any other concerns. Medications tried: Sumatriptan, Excedrin, tramadol, amitriptyline, nortriptyline, temazepam, lisinopril, diclofenac, escitalopram, Celebrex, coq 10 CURRENT MEDICATIONS: ALLERGIES/DISCONTINUE MEDICATIONS Current Outpatient Medications Medication Instructions atorvastatin (Lipitor) 40 MG tablet celecoxib (CeleBREX) 200 MG capsule TAKE 1 CAPSULE BY MOUTH EVERY DAY FOR 30 DAYS coenzyme Q-10 10 MG capsule Co Q 10 escitalopram (Lexapro) 5 MG/5ML solution Escitalopram Oxalate fexofenadine (Carolina Allergy) 60 MG tablet Carolina lisinopril-hydroCHLOROthiazide 10-12.5 MG tablet .COMPLEX pantoprazole (ProtoNix) 20 MG EC tablet Pantoprazole Sodium TEMAZEPAM & DIET MANAGE PROD PO Temazepam Allergies Allergen Reactions Codeine Rash Other Reaction(s): Hives, Esophageal spasms There are no discontinued medications. PAST MEDICAL HISTORY: SURGICAL/SOCIAL/FAMILY HISTORY DEPRESSION SCREEN: Past Medical History: Diagnosis Date History of blood clots blood clots x2 Hypertension (CMS/HCC) Past Surgical History: Procedure Laterality Date CHOLECYSTECTOMY 1998 FOOT SURGERY Bilateral x2 HYSTERECTOMY 2001 KNEE SURGERY Bilateral multiple Social History Tobacco Use Smoking status: Unknown Passive exposure: Never Tobacco comments: Light tobacco smoker Vaping Use Vaping status: Never Used Substance Use Topics Alcohol use: Yes Comment: caffeine: 1-2 cups per day coffee Drug use: Never Family History Problem Relation Name Age of Onset Heart disease Mother Hyperlipidemia Mother Diabetes Father Heart disease Father Cancer Father Fibromyalgia Sister Ivan's palsy Sister Cancer Maternal Grandmother Heart disease Maternal Grandmother Diabetes Maternal Grandmother Cancer Maternal Grandfather Heart disease Paternal Grandmother Hypertension Paternal Grandmother Diabetes Paternal Grandmother Cancer Paternal Grandfather Hypertension Paternal Grandfather Diabetes Paternal Grandfather Heart disease Paternal Grandfather Cancer Sibling Hyperlipidemia Sibling Diabetes Sibling Hypertension Sibling Depression: Not on file REVIEW OF SYMPTOMS: Review of Systems Constitutional: Negative for chills, diaphoresis, fatigue and fever. HENT: Negative for ear pain, tinnitus and trouble swallowing. Eyes: Positive for photophobia and visual disturbance. Respiratory: Negative for cough and shortness of breath. Cardiovascular: Negative for palpitations and leg swelling. Gastrointestinal: Positive for nausea and vomiting. Negative for abdominal pain. Genitourinary: Negative for difficulty urinating and urgency. Musculoskeletal: Negative for arthralgias, back pain, myalgias, neck pain and neck stiffness. Neurological: Positive for headaches. Negative for tremors, weakness, light-headedness and numbness. Psychiatric/Behavioral: Negative for agitation, confusion and suicidal ideas. OBJECTIVE: 09/15/2024 9:12 AM 10/04/2020 12:00 PM 06/14/2018 12:00 PM Vitals BMI 36.9 kg/m2 34.33 kg/m2 34.26 kg/m2 BSA (m2) 2.1 m2 2.02 m2 2.02 m2 Systolic 139 Diastolic 85 Height (in) 5' 4 5' 4 5' 4 Weight (lb) 215 200 199.6 Visit Report Report EXAM: Neurological Exam PROCEDURE: NONE ASSESSMENT AND PLAN: Tiara Multani is a 59 y.o. female who presents with headaches possibly due to migraine headaches, muscle tension headaches, complicated migraine, migraine variant, or chronic daily headache. Another consideration would be medication overuse headaches or rebound headaches due to increased use of NSAID's or chronic headaches secondary to an underlying sleep disorder. Diagnoses and all orders for this visit: Intractable chronic migraine with aura with status migrainosus ([facility]) Trial of Nurtec every other day for acute treatment. Samples provided. I counseled the patient on the possible side effects and interactions of medications. Total time 30 minutes spent reviewing records, performing medically appropriate exam, counseling , education, ordering medication, tests, and/or procedures, documenting health information into the health record, communicating results to the patient, and coordinating care. Follow up 8 weeks. documented in this encounter [facility] 08-18-2024 History of Presen t illness Narrative Skin Check Location: Patient requests a full body skin examination Dermatologic history: no history of skin cancer, no history of atypical moles, no family history of melanoma Last visit: 1 year ago Established patient All pertinent medical history, medications, and allergies were reviewed. General Exam: alert, oriented to person, place, and time, normal affect, well appearing Unaccompanied Scalp, Examined , exam limited by hair Right leg Examined Head, Face Examined Left leg Examined Neck Examined Right foot Examined Chest Examined Left foot Examined Back Examined Buttocks Examined Abdomen Examined Digits,nails: Examined Right arm Examined Left arm Examined Lymphatics: Not examined Hands Examined 1. Seborrheic keratosis (4) Chest (Upper Torso, Anterior), Left Arm, Right Arm, Torso - Posterior (Back) Stuck on verrucous, mendoza-brown papules and plaques. Patient was counseled regarding these benign growths. Removal is normally not necessary, but they may be removed if they are symptomatic or for cosmetic reasons. 2. Lentigines (2) Chest (Upper Torso, Anterior), Head - Anterior (Face) Scattered mendoza macules in sun-exposed areas. The patient was informed that lentigines are benign pigmented lesions that occur on sun-exposed and sun-damaged skin. No treatment is necessary. Recommended regular use of broad spectrum sunscreen SPF 30 or higher 3. Melanocytic nevus of trunk Scattered benign appearing, regular brown to light brown melanocytic papules and macules with similar morphology Counseled regarding these benign growths. Rarely, a nevus can develop into malignant melanoma, so any changing nevi should be promptly re-evaluated. 4. Sebaceous hyperplasia of face Head - Anterior (Face) Small yellow papules with a central dell. Reassure, benign. Discussed these can be removed for a cosmetic fee with the hyfrecator if desired. Next Visit: 1 year documented in this encounter [facility] 06-15-2023 Evaluation note Encounter Date Diagnosis Assessment Notes Jun, Primary insomnia (ICD-10 - F51.01) [facility] Other 09-17-2023 Evaluation note* Encounter Date Diagnosis Assessment Notes Treatment Notes Treatment Clinical Notes May, Primary insomnia (ICD-10 - F51.01) [facility] Other 08-28-2023 Evaluation note* Encounter Date Diagnosis Assessment Notes Treatment Notes Treatment Clinical Notes Apr, Seasonal allergic rhinitis due to pollen (ICD-10 - J30.1) [facility] Other 05-11-2023 Evaluation note* Encounter Date Diagnosis Assessment Notes Treatment Notes Treatment Clinical Notes January, Elevated cholesterol (ICD-10 - E78.00) Instructed on diet and exercise with continued statin therapy.Discussed the beneficial effects of lowering cholesterol in reducing the risk for cerebrovascular and cardiovascular disease. January, Primary hypertension (ICD-10 - I10) This patient is instructed to consume a healthy, low-fat, low-salt diet. They are also encouraged to continue exercise to achieve/maintain a normal BMI. Instructed to hold antihypertensive for now and check BP daily. Notify office for BP > 140/90 January, CAMPBELL (dyspnea on exertion) (ICD-10 - R06.09) Unknown etiology: - PE, pulmonary mass, infiltrate r/o w/ CTA - r/o uncontrolled underlying asthma January, Tachycardia (ICD-10 - R00.0) Determine cause, r/o PE, CHF, MT Underlying uncontrolled asthma? Thyrotoxicosis? January, Mild intermittent asthma without complication (ICD-10 - J45.20) Treatment w/ essential oils. Not using IRMA Denies wheezing, coughing or sputum production. If Holter and Echo normal, would check PFT January, Gastroesophageal reflux disease with esophagitis without hemorrhage (ICD-10 - K21.00) Controlled Diet instructions: Smaller portions, avoid eating and laying flat, avoid eating or drinking prior to bedtime. Weight loss. January, Prerenal azotemia (ICD-10 - R79.89) Increase fluids, limit caffeine, recheck BMP [facility] Other 05-05-2023 Evaluation note* Encounter Date Diagnosis Assessment Notes Treatment Notes Treatment Clinical Notes January, Tachycardia (ICD-10 - R00.0) January, Fatigue, unspecified type (ICD-10 - R53.83) [facility] Other 04-27-2023 Evaluation note* Encounter Date Diagnosis Assessment Notes Treatment Notes Treatment Clinical Notes Dec, Hypertension (ICD-10 - I10) This patient is instructed to consume a healthy, low-fat, low-salt diet. They are also encouraged to continue exercise to achieve/maintain a normal BMI. Dec, Wellness examination (ICD-10 - Z00.00) Healthy diet and exercise. Reviewed age-appropriate preventive testing recommended. Dec, Mild intermittent asthma without complication (ICD-10 - J45.20) Healthy diet and exercise. IRMA as needed for cough and dyspnea Dec, Tachycardia (ICD-10 - R00.0) Hydrate, avoid stimulants, check TSH. EKG, Holter and Echocardiogram to evaluate for cardiomyopathy Dec, Elevated cholesterol (ICD-10 - E78.00) Instructed on diet and exercise with continued statin therapy.Discussed the beneficial effects of lowering cholesterol in reducing the risk for cerebrovascular and cardiovascular disease. Dec, Primary insomnia (ICD-10 - F51.01) Healthy diet and exercise Proper, consistent bedtime routine - avoid exercise, eating, TV/phone/computer use Dec, Seasonal allergic rhinitis due to pollen (ICD-10 - J30.1) Dec, Screening mammogram for breast cancer (ICD-10 - Z12.31) [facility] Other 02-17-2023 NoteEXAMINATION: XR CHEST 2 V HISTORY: COVID-19 ; acute cough and wheezing COMPARISON: No relevant comparison available. FINDINGS: LUNGS: No significant pulmonary parenchymal abnormalities. VASCULATURE: No increased pulmonary vasculature. PLEURA: No pneumothorax, effusion, or pleural thickening. CARDIAC: No cardiomegaly or cardiac silhouette abnormality. MEDIASTINUM: No visible mass or adenopathy. BONES: No fracture or visible bone lesion. OTHER: Negative. IMPRESSION: 1. Normal examination. Electronically authenticated by: GIOVANNI HANDY Date: 2022-10-31 09:36[facility] Diagnosis Contusion of left shoulder, initial encounter Contusion of left front wall of thorax, initial encounter documented in this encounter [facility] Phone: [email or web address] note* Diagnosis Contusion of left shoulder, initial encounter documented in this encounter [facility] Phone: [email or web address] note* Diagnosis Breast cancer screening by mammogram documented in this encounter [facility] Phone: [email or web address] note* Diagnosis Abnormal mammogram Abnormal mammogram, unspecified documented in this encounter [facility] Phone: [email or web address] note* Diagnosis Abnormal mammogram Abnormal mammogram, unspecified documented in this encounter [facility] Phone: [email or web address] noteNo InformationNortThe [facility] Other Evaluation note* Diagnosis Onset Date Resolution Status Elevated cholesterol acute Essential (primary) hypertension acute Gastroesophageal reflux dise ase with esophagitis without hemorrhage acute Generalized anxiety disorder acute Mild intermittent asthma without complication acute Screening mammogram for breast cancer noneactive Wellness examination noneact [facility] Work Phone: Evaluation note* Diagnosis Onset Date Resolution Status Essential (primary) hypertension acute Generalized anxiety disorder acute Migraine acute [facility] Work Phone: Evaluation note* Diagnosis Seborrheic keratosis- Primary Lentigines Melanocytic nevus of trunk Benign neoplasm of skin of trunk, except scrotum Sebaceous hyperplasia of face [facility] Diagnosis Intractable chronic migraine with aura with status migrainosus (CMS/HCC)- Primary [facility] Narrative - Reported* Type Description Date Medical History HTN Medical History migraine headaches Medical History Gastroesophageal ref lux disease with esophagitis without hemorrhage Medical History Hypertension Surgical History knee surgery, bilateral (x 4) Surgical History Foot Surgery, neuroma removal Surgical History cholecystectomy Hospitalization History blood clot in stomach 2000 [facility] Other Hospital Discharge instructionsAmbulatory Orders* Referral to Neurology Location: None [facility] Work Phone: Reason for visit Narrative* Consultation (Routine) - Closed Specialty Diagnoses / Procedures Referred By Mayelin cisneros Referred To Contact Neurology Diagnoses Migraine, unspecified, not intractable, without status migrainosus (CMS/HCC) Procedures RI UNLISTED EVALUATION AND MANAGEMENT Marcelino Cheney MD [address] [place] [address] Phone: tel: fax: Derek Brambila MD [address] [facility] [address] [place] [address] Phone: tel: fax: Referral ID Status Reason Start Date Expiration Date Visits Re quested Visits Authorized [id number] Closed 07/04/2024 12/31/2024 1 1 [facility] Healthcare Summary Purpose Family History No Family History Records Found Relationship Condition Age at Onset Recorded Date/T rufus grandparent Malignant neoplasm of breast Unknown grandparent Heart disease Unknown sister History of ovarian cancer Unknown Advance Directives No Advanced Directives Records Found Advance Directive Response Recorded Date/ Time Advance Directives No November 19 2:44pm Reason for Referral Specialty Diagnoses / Procedures Referred By Mayelin cisneros Referred To Contact Radiology Diagnoses Breast cancer screening by mammogram Procedures SAGRARIO LUIZA DIGITAL SCREEN SELF REFERRAL W OR WO CAD BILATERAL Marcelino Cheney DO [address] [place] [address] Referral ID Status Reason Start Date Expiration Date Visits Re quested Visits Authorized [id number] Closed 11/25/2021 11/25/2022 1 1 Specialty Diagnoses / Procedures Referred By Contpatsy t Referred To Contact Radiology Diagnoses Abnormal mammogram Procedures SAGRARIO LUIZA DIGITAL DIAGNOSTIC UNILATERAL RIGHT Marcelino Cheney DO [address] [place] [address] Referral ID Status Reason Start Date Expiration Date Visits Re quested Visits Authorized [id number] Closed 11/28/2021 11/28/2022 1 1 Chief Complaint and Reason for Visit Chief Complaint Amb Documentation Wellness Reason for Visit Elevated cholesterol Essential (primary) hypertension Gastroesophageal reflux disease with esophagitis without hemorrhage Generalized anxiety disorder Mild intermittent asthma without complication Screening mammogram for breast cancer Wellness examination Chief Complaint Amb Documentation Wellness allergy shot Reason for Visit Elevated cholesterol Essential (primary) hypertension Gastroesophageal reflux disease with esophagitis without hemorrhage Generalized anxiety disorder Mild intermittent asthma without complication Screening mammogram for breast cancer Wellness examination Chief Complaint headaches/dicuss blo odwork results Reason for Visit Essential (primary) hypertension Generalized anxiety disorder Migraine Additional Source Comments INFORMATION SOURCE (unrecogn ized section and content) DATE CREATED AUTHOR 10/13/2020 [facility] DATE CREATED AUTHOR AUTHOR'S ORGANIZ ATION 12/06/2021 [facility] DATE CREATED AUTHOR AUTHOR'S ORGANIZ ATION 01/28/2023 [facility] DATE CREATED AUTHOR AUTHOR'S ORGANIZ ATION 09/16/2024 [facility] EPIC Care Teams (unrecognized sec tion and content) Team Status: Active Member Role Status Dates Marcelino Cheney DO Primary Care Provider Active Team Status: Inactive Member Role Status Dates Marcelino Cheney DO Primary Care Provide r, Attending Provider Active Start: July 01, 2024 End: July 01, 2024 [facility] Relationship Specialty Start Date End Date Marcelino Cheney DO [address] [place] [address] PCP - General Internal Medicine 04/11/21 [facility] Relationship Specialty Start Date End Date Marcelino Cheney DO [address] [place] [address] PCP - General Internal Medicine 04/11/21 [facility] Relationship Specialty Start Date End Date Marcelino Cheney DO [address] [place] [address] PCP - General Internal Medicine 04/11/21 [facility] Relationship Specialty Start Date End Date Marcelino Cheney DO [address] [place] [address] PCP - General Internal Medicine 04/11/21 Team Status: Active Member Role Status Dates Marcelino Cheney DO Primary Care Provider Active Start: November 10, 2023 LEOBARDO Kline Attending Provider Active St art: November 10, 2023 Team Status: Inactive Member Role Status Dates Marcelino Cheney DO Primary Care Provide r, Attending Provider Active Start: January 15, 2024 End: January 15, 2024 Team Status: Inactive Member Role Status Dates Marcelino Cheney DO Primary Care Provide r, Attending Provider Active Start: January 18, 2024 End: January 18, 2024 [facility]cis Relationship Specialty Start Date End Date Marcelino Cheney MD [address] [place] [address] PCP - General Internal Medicine 09/15/24 [facility] Relationship Specialty Start Date End Date Marcelino Cheney MD [address] [place] [address] PCP - General Internal Medicine 09/15/24 Reason for Visit (unrecogniz ed section and content) Specialty Diagnoses / Procedures Referred By Contac t Referred To Contact Radiology Diagnoses Breast cancer screening by mammogram Procedures SAGRARIO LUIZA DIGITAL SCREEN SELF REFERRAL W OR WO CAD BILATERAL Marcelino Cheney, DO [address] [place] [address] Referral ID Status Reason Start Date Expiration Date Visits Re quested Visits Authorized [id number] Closed 11/25/2021 11/25/2022 1 1 Specialty Diagnoses / Procedures Referred By Contac t Referred To Contact Radiology Diagnoses Abnormal mammogram Procedures SAGRARIO LUIZA DIGITAL DIAGNOSTIC UNILATERAL RIGHT Marcelino Cheney, DO [address] [place] [address] Referral ID Status Reason Start Date Expiration Date Visits Re quested Visits Authorized [id number] Closed 11/28/2021 11/28/2022 1 1 Specialty Diagnoses / Procedures Referred By Contac t Referred To Contact Radiology Diagnoses Abnormal mammogram Procedures US BREAST LIMITED RIGHT Marcelino Cheney, DO [address] [place] [address] Referral ID Status Reason Start Date Expiration Date Visits Re quested Visits Authorized [id number] Closed 11/28/2021 11/28/2022 1 1 Reason Comments Skin Check Goals (unrecognized section and content) Goals may be documented in a n alternate section FOR RECORDS PERTAINING TO PATIENTS WHO ARE OR HAVE BEEN ENROLLED IN A CHEMICAL DEPENDENCY/SUBSTANCEABUSE PROGRAM, SOME INFORMATION MAY BE OMITTED. This clinical summary was aggregated from multiple sources. Caution should be exercised in using it in the provision of clinical care. This summary normalizes information from multiple sources, and as a consequence, information in this document may materially change the coding, format and clinical context of patient data. In addition, data may be omitted in some cases. CLINICAL DECISIONS SHOULD BE BASED ON THE PRIMARY CLINICAL RECORDS. [employer] provides no warranty or guarantee of the accuracy or completeness of information in this document.
[2025-03-02 12:04] LABS: Basophils Absolute Auto 0.1 10^3/uL (0.0-0.1); Basophils Percent Auto 1.3 % (0.2-2.0); Eosinophils Absolute Auto 0.2 10^3/uL (0.0-0.7); Eosinophils Percent Auto 3.9 % (0.9-7.0); Hematocrit 40.1 % (36.0-48.0); Hemoglobin 12.6 g/dL (12.0-16.0); Immature Granulocytes Abs Auto 0.01 10^3/uL (0.00-0.03); Immature Granulocytes Pct Auto 0.2 % (0.0-0.5); Lymphocytes Absolute Auto 2.6 10^3/uL (1.2-3.8); Lymphocytes Percent Auto 47.6 % (20.5-60.0); Mean Corpuscular HGB Conc 31.4 g/dL (29.9-35.2); Mean Corpuscular Hemoglobin 23.9 pg (26.7-34.0); Mean Corpuscular Volume 75.9 fL (81.0-99.0); Mean Platelet Volume 9.1 fL (9.5-13.5); Monocytes Absolute Auto 0.6 10^3/uL (0.3-0.8); Monocytes Percent Auto 10.5 % (1.7-12.0); Neutrophils Percent Auto 36.5 % (43.0-75.0); Platelet Count 296 10^3/uL (150-450); Red Blood Count 5.28 10^6/uL (4.20-5.40); Red Cell Distribution Width 17.1 % (11.0-15.0); White Blood Count 5.4 10^3/uL (4.0-11.0)
[2025-03-02 12:05] LABS: Alanine Aminotransferase 29 U/L (14-59); Albumin Globulin Ratio 0.9; Albumin Level 3.2 g/dL (3.4-5.0); Alkaline Phosphatase 62 U/L (46-116); Anion Gap 10.6; Aspartate Amino Transferase 17 U/L (15-37); BUN Creatinine Ratio 13.3; Bilirubin Total 0.5 mg/dL (0.2-1.0); Calcium 8.8 mg/dL (8.5-10.1); Carbon Dioxide 30.4 mmol/L (21.0-32.0); Chloride 104 mmol/L (98-107); Cholesterol 149 mg/dL (<=200); Estimated GFR (African America 59 (>=60 mL/min/1.73m^2); Estimated GFR (Non-African Ame 49 (>=60 mL/min/1.73m^2); Globulin 3.4 g/dL; Glucose 103 mg/dL (74-106); HDL Cholesterol 49 mg/dL (40-60); LDL Cholesterol Calculated 73.2 mg/dL; Sodium 141 mmol/L (136-145); Thyroid Stimulating Hormone 2.269 uIU/mL (0.358-3.740); Total Protein 6.6 g/dL (6.4-8.2); Triglycerides 134 mg/dL (<=150); VLDL CHOLESTEROL 26.8 mg/dL
== END 2025-03-02 11:19 | disposition home or self-care (01) ==
LOC: LAB 11:19
PROVIDERS: PCP Internal Medicine; Visit Provider Internal Medicine
DX: Z00.00 Encounter for general adult medical examination without abnormal findings (principal)
CPT/HCPCS: 36415; 80053; 80061; 84443; 85025

== ENCOUNTER 2025-06-26 10:39 | Outpatient (OUT) | payer OTHER, SELFPAY ==
--- OUTSIDE RECORDS SUMMARY | 2025-06-26 10:45 | XMS_ITS | Encounter Summary ---
Author Organization [facility] Address [address] [place] [address] Care Team Providers Care Trolley Cleaner Name Role Phone Marcelino Cheney DO Primary Care Provider [phone] Encounter Details Date Type Department Care Team (Late Contact Info) Description 03/06/2025 Orders Only [facility] [address] [facility] [place] [address] Unallocated, [facility] MD [facility] [address] [place] [address] Social History Tobacco Use Types Packs/Day Years Used Date Smoking Tobacco: Unknown Passive Smoke Exposure: Never Comments:Light tobacco smoke r Alcohol Use Standard Drinks/Week Comments Yes 0 [...] as of this encounter Plan of Treatment Upcoming Encounters Date Type Department Care Team (Late st Contact Info) Description 08/21/2025 11:25 AM EST Office Visit [facility] [address] [place] [address] Ivone Jones, SLEEPING CAR CONDUCTOR-SECURITY COMPLIANCE ENGINEER [address] [place] [address] documented as of this encounter Procedures Procedure Name Priority Date/Time Associated Diagnosis Comments XR HIP 2 OR 3 VW LEFT Routine 03/06/2025 1:57 PM EDT documented in this encounter Results * XR hip left 2 or 3 views (03/06/2025 1:57 PM EDT) Anatomical Region Laterality Modality Lower Extremities, Hip Left Radiograp hic Imaging us [facility]oms Provider Unallocated IMG XR PROCEDURES F inal Result documented in this encounter Visit Diagnoses Not on filedocumented in this encounter Care Teams Trolley Cleaner Relationship Specialty Start Date End Date Marcelino Cheney DO [address] [facility] [place] [address] PCP - General Internal Medicine 03/06/25 documented as of this encounter
--- OUTSIDE RECORDS SUMMARY | 2025-06-26 10:45 | XMS_ITS | Encounter Summary ---
Author Organization [facility] Address [address], [address] [place] [address] Care Team Providers Care Healthcare Account Manager Name Role Phone Marcelino Cheney DO Primary Care Provider [phone] Encounter Details Date Type Department Care Team (Latest Contact Info) Description 11/28/2021 Transcribe Orders [facility] [address] [phone] Mracelino Cheney DO [address] [place] [address] Abnormal mammogram (Primary Dx) Social [...] on file documented as of this encounter Visit Diagnoses Diagnosis Abnormal mammogram- Primary Abnormal mammogram, unspecified documented in this encounter Care Teams Healthcare Account Manager Relationship Specialty Start Date End Date Marcelino Cheney DO [address] [place] [address] PCP - General Internal Medicine 04/11/21 documented as of this encounter
--- OUTSIDE RECORDS SUMMARY | 2025-06-26 10:45 | XMS_ITS | Encounter Summary ---
Author Organization [facility] Address [address], [address] [place] [address] Care Team Providers Care Incinerator Operator Name Role Phone Marcelino Cheney DO Primary Care Provider [phone] Reason for Referral * Other (Routine) - Closed Specialty Diagnoses / Procedures Referred By Mayelin cisneros Referred To Contact Radiology Diagnoses Abnormal mammogram Procedures SAGRARIO LUIZA DIGITAL DIAGNOSTIC UNILATERAL RIGHT Marcelino Cheney DO [address] [place] [address] Phone: tel: fax: Referral ID Status Reason Start Date Expiration Date Visits Re quested Visits Authorized [id number] Closed 11/28/2021 11/28/2022 1 1 Encounter Details Date Type Department Care Team (Latest Contact Info) Description 11/28/2021 Transcribe Orders [facility] [address] [id number] Marcelino Cheney DO [address] [place] [address] Abnormal mammogram (Primary Dx) Social [...] to the patient regarding the results. The [employer] recommends annual mammograms for [...] imaging. No suspicious findings on this exam. Marcelino Cheney DO IMG MAMMOGRAPHY ORDERABLES Olamide l Result documented in this encounter Visit Diagnoses Diagnosis Abnormal mammogram- Primary Abnormal mammogram, unspecified Abnormal mammogram Abnormal mammogram, unspecified documented in this encounter Care Teams Incinerator Operator Relationship Specialty Start Date End Date Marcelino Cheney [place] [address] PCP - General Internal Medicine 04/11/21 documented as of this encounter
--- OUTSIDE RECORDS SUMMARY | 2025-06-26 10:45 | XMS_ITS | Clinical Summary ---
Author Organization [facility] Address [address], [address] [place] [address] Care Team Providers Care Rating Clerk Name Role Phone Marcelino Cheney DO Primary Care Provider [phone] Immunizations Immunization Administration Dates Next Due COVID-19, Inactive, PFIZER P URPLE top, DILUTE for use, (age 12 y+) 12/17/2020,11/20/2020 Social History Tobacco Use Types Packs/Day Years Used Date Smoking Tobacco: Never Assessed Comments Unknown Sex and Gender Information Value Date Recorded Sex Assigned at Not on file Legal Sex Female 12:54 PM EDT Gender Identity Not on file Sexual Orientation Not on file Plan of Treatment Not on file Insurance [employer] Care Teams Rating Clerk Relationship Specialty Start Date End Date Marcelino Cheney DO [address] [place] [address] PCP - General Internal Medicine 04/11/21
--- OUTSIDE RECORDS SUMMARY | 2025-06-26 10:45 | XMS_ITS | Clinical Summary ---
Author Organization [facility] Address [address] [facility] [place] [address] Care Team Providers Care Firmware Software Verification Engineer Name Role Phone Marcelino Cheney Primary Care Provider [phone] Allergies Active Allergy Reactions Criticality Noted Date [...] 08/21/2025 11:25 AM EST Office Visit [facility] [address] [place] [phone] Ivone Jones APRN-AIRPORT ATTENDANT [address] [place] [address] Health Maintenance Due Date Last Done Comments CT Colonography 1963 Colonoscopy 1963 Colorectal Cancer Screening 1963 FIT-DNA 1963 FIT 1963 FOBT 1963 Sigmoidoscopy 1963 Pap Smear 1984 Cervical Cancer Screening 1993 HPV/Cotest 1993 Mammogram 12/02/2022 12/02/2021, 12/02/2021, 11/12 Influenza Vaccine (#1) 2025 , 09/15/2023, 06/12/2022, Additional history exists Insurance [employer] Care Teams Firmware Software Verification Engineer Relationship Specialty Start Date End Date Marcelino Cheney DO [address] [place] [address] PCP - General Internal Medicine 03/06/25
--- OUTSIDE RECORDS SUMMARY | 2025-06-26 10:45 | XMS_ITS | Clinical Summary ---
Author Organization [facility] Address [address] [place] [address] Care Team Providers Care Sales Performance Analyst Name Role Phone Unavailable Primary Care Provider [...] of 2) 2013 Covid-19 Vaccine (1 - 2024- season) 2025 Influenza Vaccine (#1) 2025 RSV Vaccine (1 - 1-dose 75+ series) 2038 Procedures Procedure Name Priority Date/Time Associated Diagnosis Comments COLONOSCOPY, GI 02/04/2006 COMPREHENSIVE METABOLIC PANEL 05/14/2000 4:30 AM EDT from Last 3 Months or Most Recently Relevant to Health Maintenance Results * COLONOSCOPY, GI (02/04/2006) Support Worker DATE: 02/04/2006 ENDOSCOPIST: Johnny Pastor D.O. REFERRING PHYSICIAN: PATIENT NAME: ISAK MARCIAL DATE: 1965 HOSPITAL NO: [id number] IMPRESSION: 1. Colon polyp 2. Small internal [...] ileum confirmed by appendiceal orifice, cecal strap (kootenai's foot) and ileocecal valve. A staff physician [...] found. There were no vascular abnormalities noted. [facility] 02/04/2006 Narrative [facility] - 02/04/2006 5:04 PM EDT Ordered by an unspecified provider. us [facility] Provider SCHEDULED PROCEDURES Final Resul t Performing Organization Address City/State/[facility] Co de Phone Number [facility] [address] [place] [address] * (ABNORMAL) COMP CHEMISTRY PKG (05/14/2000 4:30 AM EDT) Protein, Total 6.3 6.0 - 8.4 g/dL [facility] Albumin 3.4(A) 3.5 - 5.0 g/dL [facility] Calcium 8.7 8.5 - 10.5 mg/dL [facility] Bilirubin, Total 0.4 0.0 - 1.5 mg/dL [facility] Alkaline Phosphatase 38 20 - 120 U/L [facility] AST 25 7 - 40 U/L [facility] Glucose 81 65 - 110 mg/dL [facility] BUN 18 8 - 25 mg/dL [facility] Creatinine 0.7 0.7 - 1.4 mg/dL [facility] Sodium 142 132 - 148 mmol/L [facility] Potassium 4.6 3.5 - 5.0 mmol/L [facility] Chloride 109 98 - 110 mmol/L [facility] CO2 23(A) 24 - 32 mmol/L [facility] Anion Gap 10 0 - 15 mmol/L [facility] ALT 40 0 - 45 U/L [facility] 05/14/2000 4:30 AM EDT Johnny Pastor LABORATORY Final Result [facility] [address] [place] [address] from Last 3 Months or Most Recently Relevant to Health Maintenance Insurance [facility] PPO
--- OUTSIDE RECORDS SUMMARY | 2025-06-26 10:52 | XMS_ITS | CCD ---
Author Organization [facility] Care Team Providers Care Transition Of Care Specialist Name Role Phone Marcelino Cheney DO Primary Care Provider [phone] MARCELINO CHENEY Referring Unavailable BALL, MARCELINO Jarquin Primary Care Unavailable BALL, MARCELINO Jarquin Referring Unavailable BALL, MARCELINO Jarquin Primary Care Unavailable BALL, MARCELINO Jarquin Primary Care Unavailable [...] Jarquin Primary Care Unavailable Ball, Marcelino Unavailable SHRAVAN, DR CARVALHO Admitting Unavailable BALL, DR CARVALHO Attending Unavailable BALL, DR CARVALHO Consulting Unavailable BALL, DR CARVALHO Primary Care Unavailable BALL, DR CARVALHO Admitting Unavailable BALL, DR CARVALHO Attending Unavailable BALL, DR CARVALHO Consulting Unavailable BALL, DR CARVALHO Primary Care Unavailable Giovanni Shepherd Consulting Unavailable BALL, DR CARVALHO Admitting Unavailable BALL, DR CARVALHO Attending Unavailable BALL, DR CARVALHO Consulting Unavailable BALL, DR CARVALHO Primary Care Unavailable BALL, DR CARVALHO Admitting Unavailable BALL, DR CARVALHO Attending Unavailable BALL, DR CARVALHO Primary Care Unavailable HOY ., DR LANGLEY Consulting Unavailable BALL, DR CARVALHO Primary Care Unavailable FAMARLON, H Admitting Unavailable KUSHAL, H Attending Unavailable PAY ., DR SNOWDEN Consulting Unavailable HERNANDEZ ., MR HANNA Consulting Unavailable KUSHAL, H Consulting Unavailable MISTY GOLD Consulting Unavailable UNLU, ABBY Consulting Unavailable BALL, DR CARVALHO Admitting Unavailable BALL, DR CARVALHO Attending Unavailable BALL, DR CARVALHO Primary Care Unavailable Unavailable Primary Care Provider UnavailMarcelino Saenz MD Primary Care Provider IVONE JONES Attending Unavailable DEREK BRAMBILA Attending Unavailable SHRAVAN, MARCELINO Jarquin Referring Unavailable Marcelino Cheney DO Primary Care Provider Marcelino Cheney DO Attending Provider Allergies Allergy Classification Reported Allergen(s) Allergy Type Date of Onset Reaction(s) Facility (15 sources) Codeine Drug Allergy 3 [facility] (2 sources) Codeine Drug Allergy [facility] Rep[facility] (6 sources) Codeine Drug Allergy Unknown [place] Other (6 sources) patient allergy list reviewed by nurse or physicia Propensity to adverse reactions 4 Comment:Done [place] Other Medications Current Medications Medication Drug Class(es) Dates Sig (Normalized) Sig (Original) Acetaminophen / HYDROcodone (9 sources) Opioid Agonist take 1 tablet by mouth every four hours as needed Panlor SS 712.8-60-32 MG 1 tablet as needed Orally every 4 hrs Active Calcium 500 + D 500-125 MG-UNIT (1 source) take 1 tablet by mouth once daily Calcium 500 + D 500-125 MG-UNIT 1 tablet Orally Once a day for 30 day(s) Active ciprofloxacin 3 mg/ml / dexamethasone 1 mg/ml otic suspension (1 source) Corticosteroid, Quinolone Antimicrobial Start: 05-03-2025 codeine phosphate 2 mg/ml / guaiFENesin 20 mg/ml oral solution (9 sources) Opioid Agonist Start: 11-05-2022 take 10 mL by mouth every six hours guaiFENesin-Cod eine 100-10 MG/5ML 10 mL Orally every 6 hrs for 7 days Oct, Active CoQ-10 100 MG (2 sources) CoQ-10 100 MG as directed Orally Active hydroCHLOROthiazide 12.5 mg / lisinopril 10 mg oral tablet (20 sources) Thiazide Diuretic, Angiotensin Converting Enzyme Inhibitor Start: 03-01-2025 take 1 tablet by mouth once daily Start: 12-07-2023 lisinopril-hyd roCHLOROthiazide 10-12.5 MG tablet .COMPLEX 12/07/2023 Active Start: 12-07-2023 End: 03-01-2025 take 1 tablet by mouth twice daily Lisinopril-Hydrochlorothiazide 10-12.5 m g tablet Discontinued 0 .ROUTE .COMPLEX 180 November 28, 2024 10:43pm March 01, 2025 9:09am TAKE 1 TABLET BY MOUTH TWICE DAILY Start: 12-07-2023 End: 12-07-2023 take 1 tablet by mouth twice daily Lisinopril-Hydrochlorothiazide 10-12.5 m g tablet Discontinued 1 TAB PO Twice daily December 07, 2023 12:00am December 07, 2023 1:33pm take 1 tablet by davey th twice daily Lisinopril-hydroCHLOROthiazide 10-12.5 M G 1 tablet Orally twice daily Active LORazepam 0.5 mg oral tablet (3 sources) Benzodiazepine Start: 03-01-2025 take 1 tablet by mouth once daily as needed for anxiety meloxicam 15 mg oral tablet (6 sources) Nonsteroidal Anti-inflammatory Drug Start: 03-08-2025 End: 03-08-2025 take 1 tablet by mouth once daily 24 hr metoprolol succinate 50 mg extended release oral tablet (1 source) beta-Adrenergic Liset Start: 01-16-2023 take 1 tablet by mouth every twenty-four hours Metoprolol Succinate ER 50 MG 1 tablet Orally Once a day for 30 days January, Active pantoprazole 40 mg delayed release oral tablet (20 sources) Proton Pump Inhibitor Start: 01-12-2024 End: 07-20-2024 take 1 tablet by mouth twice daily Start: 11-11-2022 take 1 tablet by davey th twice daily Pantoprazole Sodium 40 MG 1 tablet Orally Twice daily Oct, Active pantoprazole (Pr otoNix) 20 MG EC tablet Pantoprazole Sodium Active rimegepant 75 mg disintegrat ing oral tablet (3 sources) Start: 09-16-2024 Semaglutide (Weight Loss) (3 sources) Start: 04-21-2025 Start: 04-21-2025 Semaglutide (W eight Loss) (Wegovy) 0.25 mg/0.5 mL pen injector Active 0.25 MG SUBCUT every week 2 April 21, 2025 12:00am administer weeks 1 through 4 of therapy Complies with drug therapy Spacer/Aero-Hold Chamber Bags - (9 sources) Start: 10-27-2022 Spacer/Aero-Hold Chamber Bags - Use w/ inhaler in vitro every 4 hours as needed for cough or SOB for 365 days Oct, Active TEMAZEPAM & DIET MANAGE PROD PO (6 sources) TEMAZEPAM & DIET MANAGE PROD PO Temazepam Active traMADol hydrochloride 50 mg oral tablet (13 sources) Opioid Agonist Start: 03-01-2025 End: 03-01-2025 take 1 tablet by mouth every six hours as needed for pain Start: 01-15-2024 End: 03-01-2025 take 1 tablet by mouth twice daily as needed Tramadol 50 mg tablet Discontinued 50 MG PO Twice daily as needed January 15, 2024 12:00am March 01, 2025 9:20am ubidecarenone 100 mg oral ca psule (20 sources) Start: 01-15-2024 take 10 capsules by mouth once Start: 01-12-2024 End: 01-15-2024 take 10 capsules by mouth once Coenzyme Q10 100 mg cap song Discontinued 100 MG PO As Directed January 12, 2024 [...] 12, 2024 12:00am January 15, 2024 2:56pm Acetaminophen-Caff -Dihydrocod 712.8-60-32 mg tablet (3 sources) Start: 01-12-2024 End: 01-15-2024 take 1 tablet by mouth every four hours as needed Acetaminophen-Caff- Dihydrocod 712.8-60-32 mg tablet Discontinued 1 TAB PO Every 4 hours as needed January 12, 2024 12:00am January 15, 2024 2:56pm [id number] 200 actuat albuterol 0.09 mg/actuat metered dose inhaler (17 sources) beta2-Adrenergic Agonist Start: 01-12-2024 End: 01-15-2024 take 1 puff(s) by inhalation every four hours as needed Albuterol Sulfate 90 mcg/actuation HFA aerosol inhaler Discontinued 2 PUFF INHALATION Every 4 hours as needed January 12, 2024 12:00am January 15, 2024 [...] puff Inhalation every 4 hrs Aug, Active amitriptyline hydrochloride 10 mg oral tablet (20 sources) Tricyclic Antidepressant Start: 09-14-2024 End: 03-01-2025 take 3 tablets by mouth once daily at bedtime Amitriptyline 10 mg tablet Discontinued 30 MG PO Daily at bedtime 270 September 14, 2024 9:21am March 01, 2025 9:06am Start: 06-27-2024 take 1 tablet by davey th at bedtime Amitriptyline Active 0 .ROUTE .COMPLEX June 27, 2024 5:50pm TAKE 1 TABLET BY MOUTH AT BEDTIME Start: 02-24-2024 End: 09-14-2024 take 1 tablet by mouth at bedtime Amitriptyline 10 mg tablet Discontinued 0 .ROUTE .COMPLEX June 27, 2024 5:50pm September 14, 2024 9:21am TAKE 1 TABLET BY MOUTH AT BEDTIME Start: 02-02-2024 End: 02-24-2024 take 1 tablet by mouth three times daily Amitriptyline 10 mg tablet Discontinued 10 MG PO Three times daily February 02, 2024 9:32am February 24, 2024 12:55pm Start: 01-25-2024 End: 01-25-2024 take 1 tablet by mouth once daily at bedtime Amitriptyline 25 mg tablet Discontinued 25 MG PO Daily at bedtime 90 January 25, 2024 1:10pm January 25, 2024 5:54pm 1-2 PO q HS Start: 01-25-2024 End: 02-02-2024 take 1 tablet by mouth once daily at bedtime Amitriptyline 10 mg tablet Discontinued 10 MG PO Daily at bedtime January 25, 2024 12:00am February 02, 2024 9:33am Start: 01-18-2024 End: 01-25-2024 take 3 tablets by mouth once daily at bedtime Amitriptyline 10 mg tablet Discontinued 30 MG PO Daily at bedtime January 18, 2024 10:36am January 25, 2024 1:10pm 1-2 PO q HS Start: 01-18-2024 End: 01-25-2024 take 30 mg by mouth once daily at bedtime Amitriptyline Discontinued 30 MG PO Daily at bedtime January 18, 2024 10:36am January 25, 2024 1:10pm 1-2 PO q HS Start: 01-15-2024 End: 01-18-2024 take 1 tablet by mouth once daily at bedtime Amitriptyline 10 mg tablet Discontinued 10 MG PO Daily at bedtime January 15, 2024 12:00am January 18, 2024 10:38am 1-2 PO q HS atorvastatin 40 mg oral tablet (20 sources) HMG-CoA Reductase Inhibitor Start: 12-23-2023 End: 03-01-2025 take 1 tablet by mouth once daily Atorvastatin 40 mg tablet Discontinued 0 .ROUTE .COMPLEX December 09, 2024 6:52am March 01, 2025 9:05am TAKE 1 TABLET BY MOUTH ONCE DAILY Start: 08-04-2023 End: 12-23-2023 take 1 tablet by mouth once daily Atorvastatin 40 mg tablet Discontinued 40 MG PO Daily December 23, 2023 12:00am December 23, 2023 2:44pm Start: 09-19-2022 take 1 tablet by davey th every twenty-four hours Atorvastatin Calcium 40 MG 1 tablet Orally Once a day Sep, Active celecoxib 200 mg oral capsule (14 sources) Nonsteroidal Anti-inflammatory Drug Start: 03-01-2025 End: 03-08-2025 take 1 capsule by mouth once daily Celecoxib 200 mg capsule Discontinued 200 MG PO Daily March 01, 2025 12:00am March 08, 2025 2:23pm Start: 12-18-2024 End: 03-01-2025 take 1 capsule by mouth once daily Celecoxib 200 mg capsule Discontinued 0 .ROUTE .COMPLEX December 18, 2024 2:59pm March 01, 2025 8:53am TAKE 1 CAPSULE BY MOUTH EVERY DAY FOR 30 DAYS Start: 07-01-2024 End: 12-18-2024 take 1 capsule by mouth once daily Celecoxib (Celebrex) 200 mg capsule Discontinued 200 MG PO Daily July 01, 2024 12:00am December 18, 2024 2:59pm diclofenac sodium 75 mg delayed release oral tablet (15 sources) Nonsteroidal Anti-inflammatory Drug Start: 01-12-2024 End: 01-15-2024 take 1 tablet by mouth twice daily as needed Diclofenac Sodium 75 mg tablet,delayed release (DR/EC) Discontinued 75 MG PO Twice daily as needed January 12, 2024 12:00am January 15, 2024 2:57pm take 1 tablet by davey th twice daily at mealtime Diclofenac Sodium 75 MG TAKE 1 TABLET BY MOUTH TWICE A DAY WITH FOOD for 30 Active escitalopram 10 mg oral tablet (20 sources) Serotonin Reuptake Inhibitor Start: 11-10-2023 End: 03-01-2025 take 1 tablet by mouth once daily at bedtime Escitalopram Oxalate 10 mg tablet Discontinued 0 .ROUTE .COMPLEX November 29, 2024 7:05am March 01, 2025 9:05am TAKE 1 TABLET BY MOUTH DAILY AT BEDTIME Start: 11-10-2023 End: 11-10-2023 take 1 tablet by mouth once daily at bedtime Escitalopram Oxalate 10 mg tablet Discontinued 10 MG PO Daily at bedtime 90 November 10, 2023 2:37pm November 10, 2023 9:42pm escitalopram (Le xapro) 5 MG/5ML solution Escitalopram Oxalate Active Escitalopram Oxa late 10 MG TAKE 1 TABLET AT BEDTIME for 90 Active fexofenadine hydrochloride 180 mg oral tablet (20 sources) Histamine-1 Receptor Antagonist Start: 01-12-2024 End: 03-01-2025 take 1 tablet by mouth once daily Fexofenadine 180 mg tablet Discontinued 180 MG PO Daily January 12, 2024 12:00am March 01, 2025 8:53am fexofenadine (Al legra Allergy) 60 MG tablet [place] Active take 1 tablet by davey th every twenty-four hours Fexofenadine HCl 180 MG 1 tablet Orally Once a day for 30 day(s) Active nortriptyline 25 mg oral capsule (16 sources) Tricyclic Antidepressant Start: 01-12-2024 End: 01-15-2024 take 1 capsule by mouth once daily at bedtime Nortriptyline 25 mg capsule Discontinued 25 MG PO Daily at bedtime January 12, 2024 12:00am January 15, 2024 3:16pm take 1 capsule by mouth at bedti mt Nortriptyline HCl 25 MG TAKE 1 CAPSULE BY MOUTH AT BEDTIME for 30 Active predniSONE 20 mg oral tablet (3 sources) Start: 03-07-2025 End: 04-20-2025 Prednisone 20 mg tablet Discontinued 20 MG PO As Directed March 07, 2025 12:00am April 20, 2025 8:18pm 1 tab tid w/ food x 3 days, then bid w/ food x 3 days, then qd w/ food x 3 days temazepam 15 mg oral capsule (16 sources) Benzodiazepine Start: 01-15-2024 End: 01-18-2024 take 1 capsule by mouth once daily at bedtime Temazepam 15 mg capsule Discontinued 15 MG PO Daily at bedtime January 15, 2024 12:00am January 18, 2024 10:36am Start: 06-15-2023 take 1 capsule by mo [facility] every twenty-four hours Temazepam 15 MG 1 capsule at bedtime as needed Orally Once a day for 14 days Jun, Active Start: 05-31-2023 take 1 capsule by mo ut every twenty-four hours Temazepam 15 MG 1 capsule at bedtime as needed Orally Once a day for 90 days May, Active Start: 05-05-2023 take 1 capsule by mo [facility] every twenty-four hours Temazepam 15 MG 1 capsule at bedtime as needed Orally Once a day for 90 days Apr, Active Start: 10-16-2022 take 1 capsule by mo [facility] every twenty-four hours Temazepam 15 MG 1 [...] urticaria] Onset: 5 09-12-2024 Episodic Anxiety disorders (20 sources) Generalized anxiety disorder; Translations: [Generalized anxiety disorder] Onset: 4 01-14-2024 Chronic Asthma (20 sources) Cough variant asthma; Translations: [Cough variant asthma] Onset: 6 Chronic Cardiac dysrhythmias (4 sources) Tachycardia, unspecified; Translations: [TACHYCARDIA UNSPECIFIED] Onset: 3 Episodic Chronic kidney disease (3 sources) Chronic kidney disease; Translations: [Chronic kidney disease, unspecified] 03-02-2025 Chronic Chronic obstructive pulmonary disease and bronchiectasis (6 [...] initial encounter] Onset: 3 Episodic Esophageal disorders (20 sources) Gastro-esophageal reflux disease without esophagitis; Translations: [Esophageal reflux finding] Onset: 3 01-14-2024 Chronic Esophageal disorders (15 sources) Esophageal disorders; Translations: [Gastroesophageal reflux disease with esophagitis without hemorrhage] Essential hypertension (20 sources) Hypertensive disorder; Translations: [Essential (primary) hypertension] Onset: 5 Chronic Gastritis and duodenitis (3 sources) Bile-induced gastritis; Translations: [Other gastritis without bleeding] Onset: 4 09-12-2024 Episodic Headache; including migraine (20 sources) Chronic migraine without aura, non-refractory; Translations: [...] 4 09-12-2024 Chronic Other aftercare (1 source) intermission coordinator (current) use of aspirin; Translations: [SKILLED NURSING CURRENT USE OF ASPIRIN] Onset: 3 Episodic Other aftercare (1 source) Other intermission coordinator (current) drug therapy; Translations: [OTH SKILLED NURSING CURRENT DRUG THERAPY] Onset: 3 Episodic Other and unspecified benign neoplasm (2 sources) Melanocytic nevus of trunk; Translations: [Melanocytic nevi of trunk] 08-18-2024 Episodic Other ear and sense organ disorders (1 source) Otitis externa of left ear; Translations: [Unspecified otitis externa, left ear] 05-03-2025 Chronic Other hematologic conditions (1 source) Other specified [...] sources) Cough; Translations: [Cough, unspecified] Episodic Other non-traumatic joint disorders (6 sources) Hip pain; Translations: [Pain in left hip] 03-01-2025 Episodic Other nutritional; endocrine; and metabolic disorders (5 sources) Simple obesity ; Translations: [Other obesity due to excess calories] Onset: 6 Chronic Other nutritional; endocrine; and metabolic disorders (9 sources) Obesity; Translations: [Obesity, unspecified] 04-21-2025 Chronic Other nutritional; endocrine; and metabolic disorders [...] conditions (not mental disorders or infectious disease) (16 sources) Patient encounter status; Translations: [Encounter for [...] EMBOLISM] Onset: 3 Episodic Residual codes; unclassified (4 sources) Obstructive sleep apnea syndrome; Translations: [Obstructive sleep apnea (adult) (pediatric)] 04-21-2025 Chronic Residual codes; unclassified (1 source) Family history [...] Spondylosis; intervertebral disc disorders; other back problems (8 sources) Pain in thoracic spine; Translations: [Low back pain] Onset: 3 03-01-2025 Episodic Sprains and strains (12 sources) Neck [...] Test Name Value Interpretation Reference Range Facility Basophils Auto (Bld) [#/Vol] Ordered By: Marcelino Cheney on 03-02-2025 Basophils (Bld) [#/Vol] 0.1 10 3/uL 0.0-0.1 [facility] Basophils/100 WBC Auto (Bld) Ordered By: Marcelino Cheney on 03-02-2025 Basophils/100 WBC (Bld) 1.3 % 0.2-2.0 [facility] Cholesterol in LDL Calc [Mas s/Vol]Ordered By: Marcelino Cheney on 03-02-2025 Cholesterol in LDL [Mass/Vol] 73.2 mg/dL [facility] Comment on above: <100 mg/dl [id number] 0-129 mg/dl NEAR OR ABOVE [id number] mg/dl BORDERLINE [id number] mg/dl HIGH>190 mg/dl VERY HIGH Cholesterol in VLDL Calc [Ma ss/Vol]Ordered By: Marcelino Cheney on 03-02-2025 Cholesterol in VLDL [Mass/Vol] 26.8 mg/dL [facility] Eosinophils/100 WBC Auto (Bl d)Ordered By: Marcelino Cheney on 03-02-2025 Eosinophils/100 WBC (Bld) 3.9 % 0.9-7.0 [facility] Erythrocyte distribution wid th Auto (RBC) [Ratio]Ordered By: Marcelino Cheney on 03-02-2025 Erythrocyte distribution width (RBC) [Ratio] 17.1 % High 11.0-15.0 [facility] Estimated glomerular filtrat ion rate (GFR) non- AmericanOrdered By: Marcelino Cheney on 03-02-2025 GFR/1.73 sq M.predicted among non-blacks MDRD (S/P/Bld) [Vol rate/Area] 49 mL/min/{1.73_m2} Low >=60 mL/min/1.73m 2 [facility] Globulin Calc (S) [Mass/Vol] Ordered By: Marcelino Cheney on 03-02-2025 Globulin (S) [Mass/Vol] 3.4 g/dL [facility] Hematocrit Auto (Bld) [Volum e fraction]Ordered By: Marcelino Cheney on 03-02-2025 Hematocrit (Bld) [Volume fraction] 40.1 % 36.0-48.0 [facility] Hemoglobin [Mass/volume] in BloodOrdered By: Marcelino Cheney on 03-02-2025 Hemoglobin (Bld) [Mass/Vol] 12.6 g/dL 12.0-16.0 [facility] Laboratory - Chemistry and C hemistry - challengeOrdered By: Marcelino Cheney on 03-02-2025 Albumin [Mass/Vol] 3.2 g/dL Low 3.4-5.0 [facility] ALP [Catalytic activity/Vol] 62 U/L 46-116 [facility] ALT [Catalytic activity/Vol] 29 U/L 14-59 [facility] AST [Catalytic activity/Vol] 17 U/L 15-37 [facility] Bilirubin [Mass/Vol] 0.5 mg/dL 0.2-1.0 [facility] Calcium [Mass/Vol] 8.8 mg/dL 8.5-10.1 [facility] Chloride [Moles/Vol] 104 mmol/L 98-107 [facility] Cholesterol [Mass/Vol] 149 mg/dL <=200 [facility] Cholesterol in HDL [Mass/Vol] 49 mg/dL 40-60 [facility] Comment on above: > or =60 mg/dl - LOW CARDIOVASCULAR RISK<40 mg/dl - HIGH CARDIOVASCULAR RISK CO2 [Moles/Vol] 30.4 mmol/L 21.0-32.0 [facility] Creatinine [Mass/Vol] 1.13 mg/dL High 0.55-1.02 [facility] GFR/1.73 sq M.predicted MDRD (S/P/Bld) [Vol rate/Area] 59 mL/min/{1.73_m2} Low >=60 mL/min/1.73m 2 [facility] Glucose [Mass/Vol] 103 mg/dL 74-106 [facility] Potassium [Moles/Vol] 4.0 mmol/L 3.5-5.1 [facility] Protein [Mass/Vol] 6.6 g/dL 6.4-8.2 [facility] Sodium [Moles/Vol] 141 mmol/L 136-145 [facility] Triglyceride [Mass/Vol] 134 mg/dL <=150 [facility] TSH Qn 2.269 m[IU]/L 0.358-3.740 [facility] Urea nitrogen [Mass/Vol] 15.0 mg/dL 7.0-18.0 [facility] Urea nitrogen/Creatinine [Mass ratio] 13.3 mg/mg [facility] Laboratory - Hematology and Cell countsOrdered By: Marcelino Cheney on 03-02-2025 Immature granulocytes/100 WBC (Bld) 0.2 % 0.0-0.5 [facility] Leukocytes [#/volume] correc jin for nucleated erythrocytes in Blood by Automated counOrdered By: Marcelino Cheney on 03-02-2025 WBC corrected for nucl RBC Auto (Bld) [#/Vol] 5.4 10 3/uL 4.0-11.0 [facility] Lymphocytes Auto (Bld) [#/Vo l]Ordered By: Marcelino Cheney on 03-02-2025 Lymphocytes (Bld) [#/Vol] 2.6 10 3/uL 1.2-3.8 [facility] Lymphocytes/100 WBC Auto (Bl d)Ordered By: Marcelino Cheney on 03-02-2025 Lymphocytes/100 WBC (Bld) 47.6 % 20.5-60.0 [facility] MCH Auto (RBC) [Entitic mass ]Ordered By: Marcelino Cheney on 03-02-2025 MCH (RBC) [Entitic mass] 23.9 pg Low 26.7-34.0 [facility] MCHC Auto (RBC) [Mass/Vol]Or dered By: Marcelino Cheney on 03-02-2025 MCHC (RBC) [Mass/Vol] 31.4 g/dL 29.9-35.2 [facility] MCV Auto (RBC) [Entitic vol] Ordered By: Marcelino Cheney on 03-02-2025 MCV (RBC) [Entitic vol] 75.9 fL Low 81.0-99.0 [facility] Monocytes Auto (Bld) [#/Vol] Ordered By: Marcelino Cheney on 03-02-2025 Monocytes (Bld) [#/Vol] 0.6 10 3/uL 0.3-0.8 [facility] Monocytes/100 WBC Auto (Bld) Ordered By: Marcelino Cheney on 03-02-2025 Monocytes/100 WBC (Bld) 10.5 % 1.7-12.0 [facility] Neutrophils Auto (Bld) [#/Vo l]Ordered By: Marcelino Cheney on 03-02-2025 Neutrophils (Bld) [#/Vol] 2.0 10 3/uL 1.4-6.5 [facility] Neutrophils/100 WBC Auto (Bl d)Ordered By: Marcelino Cheney on 03-02-2025 Neutrophils/100 WBC (Bld) 36.5 % Low 43.0-75.0 [facility] No Panel InformationOrdered By: Marcelino Cheney on 03-02-2025 Eosinophils # (Auto) 0.2 10 3/uL 0.0-0.7 [facility] Immature Granulocyte # (Auto) 0.01 10 3/uL 0.00-0.03 [facility] Platelet mean volume Auto (B ld) [Entitic vol]Ordered By: Marcelino Cheney on 03-02-2025 Platelet mean volume (Bld) [Entitic vol] 9.1 fL Low 9.5-13.5 [facility] Platelets Auto (Bld) [#/Vol] Ordered By: Marcelino Cheney on 03-02-2025 Platelets (Bld) [#/Vol] 296 10 3/uL 150-450 [facility] RBC Auto (Bld) [#/Vol]Ordere d By: Marcelino Cheney on 03-02-2025 RBC (Bld) [#/Vol] 5.28 10 6/uL 4.20-5.40 [facility] Serum or plasma albumin/glob ulin mass ratioOrdered By: Marcelino Cheney on 03-02-2025 Albumin/Globulin [Mass ratio] 0.9 {ratio} [facility] Serum or plasma anion gap de terminationOrdered By: Marcelino Cheney on 03-02-2025 Anion gap [Moles/Vol] 10.6 mmol/L [facility] Serum or plasma total choles terol/high density lipoprotein (HDL) cholesterol mass ratOrdered By: Marcelino Cheney on 03-02-2025 Cholesterol.total/Alice sterol in HDL [Mass ratio] 3.0 {ratio} [facility] Comment on above: 3.3 - 4.4 LOW RISK4. 4 - 7.1 AVERAGE RISK7.1 - 11.0 MODERATE RISK>11.0 HIGH RISK CBC AUTO DIFFon 01-27-2023 BASO # 0.1 103/ul Normal 0.0-0.1 [facility] Comment on above: Performed By: #### C BC #### [facility] [address] [place] [address] Dr. Isabell Muñoz Basophils/100 WBC (Bld) 0.7 % Normal 0.2-2.0 [facility] Comment on above: Performed By: #### C BC #### [facility] [address] [place] [address] Dr. Isabell Muñoz EO # 0.1 103/ul Normal 0.0-0.7 [facility] Comment on above: Performed By: #### C BC #### [facility] [address] [address] [address] Isabell Muñoz Eosinophils/100 WBC (Bld) 1.4 % Normal 0.9-7.0 [facility] Comment on above: Performed By: #### C BC #### [facility] [address] [place] [address] Dr. Isabell Muñoz Erythrocyte distribution width (RBC) [Ratio] 17.6 % Critically high 11.0-15.0 [facility] Comment on above: Performed By: #### C BC #### [facility] [address] [place] [address] Dr. Isabell Muñoz Hematocrit (Bld) [Volume fraction] 44.7 % Normal 36.0-48.0 [facility] Comment on above: Performed By: #### C BC #### [facility] [address] [place] [address] Dr. Isabell Muñoz Hemoglobin (Bld) [Mass/Vol] 13.8 g/dL Normal 12.0-16.0 [facility] Comment on above: Performed By: #### C BC #### [facility] [address] [place] [address] Dr. Isabell Muñoz IG # 0.01 10e3/ul Normal 0.00-0.03 [facility] Comment on above: Performed By: #### C BC #### [facility] [address] [place] [address] Dr. Isabell Muñoz IG % 0.1 % Normal 0.0-0.5 [facility] Comment on above: Performed By: #### C BC #### [facility] [address] [place] [address] Dr. Isabell Muñoz LYMPH # 2.9 103/ul Normal 1.2-3.8 [facility] Comment on above: Performed By: #### C BC #### [facility] [address] [place] [address] Dr. Isabell Muñoz Lymphocytes/100 WBC (Bld) 40.6 % Normal 20.5-60.0 [facility] Comment on above: Performed By: #### C BC #### [facility] [address] [place] [address] Dr. Isabell Muñoz MANUAL DIFF REQ NO Normal [facility] Comment on above: Performed By: #### C BC #### [facility] [address] [place] [address] Dr. Isabell Muñoz MCH (RBC) [Entitic mass] 24.0 pg Critically low 26.7-34.0 [facility] Comment on above: Performed By: #### C BC #### [facility] [address] [place] [address] Dr. Isabell Muñoz MCHC (RBC) [Mass/Vol] 30.9 g/dL Normal 29.9-35.2 [facility] Comment on above: Performed By: #### C BC #### [facility] [address] [place] [address] Dr. Isabell Muñoz MCV (RBC) [Entitic vol] 77.7 fL Critically low 81.0-99. 0 [facility] Comment on above: Performed By: #### C BC #### [facility] [address] [place] [address] Dr. Isabell Muñoz MONO # 0.6 103/ul Normal 0.3-0.8 [facility] Comment on above: Performed By: #### C BC #### [facility] [address] [place] [address] Dr. Isabell Muñoz Monocytes/100 WBC (Bld) 8.5 % Normal 1.7-12.0 [facility] Comment on above: Performed By: #### C BC #### [facility] [address] [place] [address] Dr. Isabell Muñoz NEUT # 3.4 103/ul Normal 1.4-6.5 [facility] Comment on above: Performed By: #### C BC #### [facility] [address] [place] [address] Dr. Isabell Muñoz Neutrophils/100 WBC (Bld) 48.7 % Normal 43.0-75.0 [facility] Comment on above: Performed By: #### C BC #### [facility] [address] [place] [address] Dr. Isabell Muñoz Platelet mean volume (Bld) [Entitic vol] 8.3 fL Critically low 9.5-13.5 [facility] Comment on above: Performed By: #### C BC #### [facility] [address] [place] [address] Dr. Isabell Muñoz PLT 301 103/ul Normal 150-450 [facility] Comment on above: Performed By: #### C BC #### [facility] [address] [address] [address] Isabell Muñoz RBC 5.75 106/ul Critically high 4.20-5.40 [facility] Comment on above: Performed By: #### C BC #### [facility] [address] [address] [address] Isabell Muñoz WBC 7.1 103/ul Normal 4.0-11.0 [facility] Comment on above: Performed By: #### C BC #### [facility] [address] [address] [address] Isabell Muñoz PROF CHEM 8 (BAS METB)on Anion gap [Moles/Vol] 12.8 mmol/L Normal [facility] Comment on above: Performed By: #### B PAULINA, TSH ####[facility] [address] [place], [place] [address]Dr. Isabell Muñoz Calcium [Mass/Vol] 8.6 mg/dL Normal 8.5-10.1 [facility] Comment on above: Performed By: #### B PAULINA, TSH ####[facility] [address] [place], [place] [address]Dr. Isabell Muñoz Chloride [Moles/Vol] 106 mmol/L Normal 98-107 [facility] Comment on above: Performed By: #### B MP, TSH ####[facility] [address] [address]Dr. Isabell Muñoz CO2 [Moles/Vol] 29.3 mmol/L Normal 21.0-32.0 [facility] Comment on above: Performed By: #### B MP, TSH ####[facility] [address] [address]Dr. Isabell Muñoz Creatinine [Mass/Vol] 1.21 mg/dL Critically high 0.55-1.02 [facility] Comment on above: Performed By: #### B MP, TSH ####[facility] [address] [address]Dr. Isabell Muñoz EGFR-AF PAPUA NEW GUINEAN 55 mL/min/1.73m2 Critically low >=60 [facility] Comment on above: Performed By: #### B PAULINA, TSH ####[facility] [address] [place], [place] [address]Dr. Isabell Muñoz EGFR-NON AF PAPUA [place] GUINEAN 46 mL/min/1.73m2 Critically low >=60 [facility] Comment on above: Performed By: #### B PAULINA, TSH ####[facility] [address] [place], [place] [address]Dr. Isabell Muñoz Glucose [Mass/Vol] 92 mg/dL Normal 74-106 [facility] Comment on above: Performed By: #### B PAULINA, TSH ####[facility] [address] [place], [place] [address]Dr. Isabell Muñoz Potassium [Moles/Vol] 4.1 mmol/L Normal 3.5-5.1 [facility] Comment on above: Performed By: #### B PAULINA, TSH ####[facility] [address] [place], [place] [address]Dr. Isabell Muñoz Sodium [Moles/Vol] 144 mmol/L Normal 136-145 [facility] Comment on above: Performed By: #### B PAULINA, TSH ####[facility] [address] [address]Dr. Isabell Muñoz Urea nitrogen [Mass/Vol] 18.0 mg/dL Normal 7.0-18.0 [facility] Comment on above: Performed By: #### B PAULINA, TSH ####[facility] [address] [address]Dr. Isabell Muñoz Urea nitrogen/Creatinine [Mass ratio] 14.9 mg/mg Normal [facility] Comment on above: Performed By: #### B PAULINA, TSH ####[facility] [address] [place], [place] [address]Dr. Isabell Muñoz TSHon 01-27-2023 TSH 4.564 uIU/mL Critically high 0.358-3.740 [facility] Comment on above: Performed By: #### B MP, TSH ####[facility] [address] [address]Dr. Isabell Muñoz CBC AUTO DIFFon 01-17-2023 BASO # 0.1 103/ul Normal 0.0-0.1 [facility] Comment on above: Performed By: #### C BC ####[facility] [address] [address]Dr. Noemimel Muñoz Basophils/100 WBC (Bld) 0.7 % Normal 0.2-2.0 [facility] Comment on above: Performed By: #### C BC ####[facility] [address] [place], [place] [address]Dr. Noemimel Muñoz EO # 0.1 103/ul Normal 0.0-0.7 [facility] Comment on above: Performed By: #### C BC ####[facility] [address] [place], [place] [address]Dr. Noemimel Muñoz Eosinophils/100 WBC (Bld) 1.3 % Normal 0.9-7.0 [facility] Comment on above: Performed By: #### C BC ####[facility] F[address] [place], [place] [address]Dr. Isabell Toni Erythrocyte distribution width (RBC) [Ratio] 17.0 % Critically high 11.0-15.0 [facility] Comment on above: Performed By: #### C BC ####[facility] [address] [place], [place] [address]Dr. Noemimel Muñoz Hematocrit (Bld) [Volume fraction] 42.1 % Normal 36.0-48.0 [facility] Comment on above: Performed By: #### C BC ####[facility] [address] [place], [place] [address]Dr. Noemimel Muñoz Hemoglobin (Bld) [Mass/Vol] 13.0 g/dL Normal 12.0-16.0 [facility] Comment on above: Performed By: #### C BC ####[facility] [address] [place], [place] [address]Dr. Isabell Muñoz IG # 0.04 10e3/ul Critically high 0.00-0.03 [facility] Comment on above: Performed By: #### C BC ####[facility] [address] [place] [address]DrRosa Isabell Muñoz IG % 0.4 % Normal 0.0-0.5 [facility] Comment on above: Performed By: #### C BC ####[facility] [address] [place] [address]DrRosa Isabell Muñoz LYMPH # 3.5 103/ul Normal 1.2-3.8 [facility] Comment on above: Performed By: #### C BC ####[facility] [address] [address]DrRosa Isabell Toni Lymphocytes/100 WBC (Bld) 38.9 % Normal 20.5-60.0 [facility] Comment on above: Performed By: #### C BC ####[facility] [address] [place] [address]DrRosa Isabell Toni MANUAL DIFF REQ NO Normal [facility] Comment on above: Performed By: #### C BC ####[facility] [address] [address]Dr. Isabell Muñoz MCH (RBC) [Entitic mass] 24.0 pg Critically low 26.7-34.0 [facility] Comment on above: Performed By: #### C BC ####[facility] [address] [place], [place] [address]Dr. Isabell Toni MCHC (RBC) [Mass/Vol] 30.9 g/dL Normal 29.9-35.2 [facility] Comment on above: Performed By: #### C BC ####[facility] Mg[address] [place], [place] [address]DrRosa Isabell Toni MCV (RBC) [Entitic vol] 77.7 fL Critically low 81.0-99. 0 [facility] Comment on above: Performed By: #### C BC ####[facility] [address] [place], [place] [address]DrRosa Franklinmel Toni MONO # 0.9 103/ul Critically high 0.3-0.8 [facility] Comment on above: Performed By: #### C BC ####[facility] [address] [id number]. Isabell Muñoz Monocytes/100 WBC (Bld) 10.1 % Normal 1.7-12.0 [facility] Comment on above: Performed By: #### C BC ####[facility] [address] [phone]. Isabell Muñoz NEUT # 4.4 103/ul Normal 1.4-6.5 [facility] Comment on above: Performed By: #### C BC ####[facility] [address] [phone]. Isabell Muñoz Neutrophils/100 WBC (Bld) 48.6 % Normal 43.0-75.0 [facility] Comment on above: Performed By: #### C BC ####[facility] [address] [address]Dr. Isabell Muñoz Platelet mean volume (Bld) [Entitic vol] 8.5 fL Critically low 9.5-13.5 [facility] Comment on above: Performed By: #### C BC ####[facility] [address] [phone]. Isabell Muñoz PLT 309 103/ul Normal 150-450 [facility] Comment on above: Performed By: #### C BC ####[facility] [address] [phone]. Isabell Muñoz RBC 5.42 106/ul Critically high 4.20-5.40 [facility] Comment on above: Performed By: #### C BC ####[facility] [address] [phone]. Isabell Muñoz WBC 9.0 103/ul Normal 4.0-11.0 [facility] Comment on above: Performed By: #### C BC ####[facility] [address] [phone]. Isabell Muñoz LIPID PROFILEon 01-17-2023 CHOL-HDL RATIO NORM SEE BELOW Normal [facility] Comment on above: Result Comment: 3.3 - 4.4 LOW RISK 4.4 - 7.1 AVERAGE RISK 7.1 - 11.0 MODERATE RISK >11.0 HIGH RISK Performed By: #### L IPID ####[facility] [address] [place], [place] [address]Ww. Isabell Muñoz Cholesterol [Mass/Vol] 159 mg/dL Normal <=200 Th [facility] [place] [facility] Comment on above: Performed By: #### L IPID ####[facility] [address] [place], [place] [address]Wl. Isabell Muñoz Cholesterol in HDL [Mass/Vol] 45 mg/dL Normal 40-60 [facility] Comment on above: Performed By: #### L IPID ####[facility] [address] [place], [place] [address]Bq. Isabell Muñoz Cholesterol in LDL [Mass/Vol] 101.0 mg/dL Normal [facility] Comment on above: Performed By: #### L IPID ####[facility] [address] [place], [place] [address]Ee. Isabell Muñoz Cholesterol.total/Alice sterol in HDL [Mass ratio] 3.5 {ratio} Normal [facility] Comment on above: Performed By: #### L IPID ####[facility] [address] [place], [place] [address]Am. Noemilan Muñoz HDL NORMAL > or = 60 mg/dl - LOW CARDIOVASCULAR RISK <40 mg/dl - HIGH CARDIOVASCULAR RISK Normal [facility] Comment on above: Performed By: #### L IPID ####[facility] [address] [place], [place] [address]Jf. Noemilan Muñoz LDL CALC NORMAL SEE BELOW Normal [facility] Comment on above: Result Comment: <100 mg/dl OPTIMAL 100 - 129 mg/dl NEAR OR ABOVE OPTIMAL 130 - 159 mg/dl BORDERLINE HIGH 160 - 189 mg/dl HIGH >190 mg/dl VERY HIGH Performed By: #### L IPID ####[facility] [address] [place], [place] [address]Tb. Noemilan Muñoz Triglyceride [Mass/Vol] 65 mg/dL Normal <=150 [facility] Comment on above: Performed By: #### L IPID ####[facility] [address] [address]Dr. Isabell Muñoz VLDL CALC 13.0 mg/dL Normal [facility] Comment on above: Performed By: #### L IPID ####[facility] [address] [phone]. Isabell Muñoz MAGNESIUMon 01-17-2023 Magnesium [Mass/Vol] 2.3 mg/dL Normal 1.8-2.4 [facility] Comment on above: Performed By: #### M G, CMP #### [facility] [address] [place] [address] Dr. Isabell Muñoz PROF 14(COMP METB)on 023 Albumin [Mass/Vol] 3.1 g/dL Critically low 3.4-5.0 [facility] Comment on above: Performed By: #### M Magnus, CMP #### [facility] [address] [place] [address] Dr. Isabell Muñoz Albumin/Globulin [Mass ratio] 0.9 {ratio} Normal [facility] Comment on above: Performed By: #### M Magnus, CMP #### [facility] [address] [place] [address] Dr. Isabell Muñoz ALP [Catalytic activity/Vol] 63 U/L Normal 46-116 [facility] Comment on above: Performed By: #### Geovanna Agudelo, CMP #### [facility] [address] [place] [address] Dr. Isabell Muñoz ALT [Catalytic activity/Vol] 35 U/L Normal 14-59 [facility] Comment on above: Performed By: #### M G, CMP #### [facility] [address] [place] [address] Dr. Isabell Muñoz Anion gap [Moles/Vol] 10.6 mmol/L Normal [facility] Comment on above: Performed By: #### M Magnus, CMP #### [facility] [address] [place] [address] Dr. Isabell Muñoz AST [Catalytic activity/Vol] 13 U/L Critically low 15-37 [facility] Comment on above: Performed By: #### M G, CMP #### [facility] [address] [place] [address] Dr. Isabell Muñoz Bilirubin [Mass/Vol] 0.4 mg/dL Normal 0.2-1.0 [facility] Comment on above: Performed By: #### M G, CMP #### [facility] [address] [place] [address] Dr. Isabell Muñoz Calcium [Mass/Vol] 8.1 mg/dL Critically low 8.5-10.1 Th [facility] [place] [facility] Comment on above: Performed By: #### M G, CMP #### [facility] [address] [place] [address] Dr. Isabell Muñoz Chloride [Moles/Vol] 105 mmol/L Normal 98-107 [facility] Comment on above: Performed By: #### M G, CMP #### [facility] [address] [place] [address] Dr. Isabell Muñoz CO2 [Moles/Vol] 26.8 mmol/L Normal 21.0-32.0 [facility] Comment on above: Performed By: #### M G, CMP #### [facility] [address] [place] [address] Dr. Isabell Muñoz Creatinine [Mass/Vol] 1.18 mg/dL Critically high 0.55-1.02 [facility] Comment on above: Performed By: #### M G, CMP #### [facility] [address] [place] [address] Dr. Isabell Muñoz EGFR-AF PAPUA NEW GUINEAN 57 mL/min/1.73m2 Critically low >=60 [facility] Comment on above: Performed By: #### M G, CMP #### [facility] [address] [place] [address] Dr. Isabell Muñoz EGFR-NON AF PAPUA [place] 47 mL/min/1.73m2 Critically low >=60 [facility] Comment on above: Performed By: #### M G, CMP #### [facility] [address] [place] [address] Dr. Isabell Muñoz Globulin (S) [Mass/Vol] 3.5 g/dL Normal T [facility] Comment on above: Performed By: #### M G, CMP #### [facility] [address] [address] [address] Isabell Muñoz Glucose [Mass/Vol] 101 mg/dL Normal 74-106 [facility] Comment on above: Performed By: #### M G, CMP #### [facility] [address] [address] [address] Isabell Muñoz Potassium [Moles/Vol] 4.4 mmol/L Normal 3.5-5.1 [facility] Comment on above: Performed By: #### M G, CMP #### [facility] [address] [place] [address] Dr. Isabell Muñoz Protein [Mass/Vol] 6.6 g/dL Normal 6.4-8.2 [facility] Comment on above: Performed By: #### M G, CMP #### [facility] [address] [place] [address] Dr. Isabell Muñoz Sodium [Moles/Vol] 138 mmol/L Normal 136-145 [facility] Comment on above: Performed By: #### M G, CMP #### [facility] [address] [place] [address] Dr. Isabell Muñoz Urea nitrogen [Mass/Vol] 22.0 mg/dL Critically high 7.0-18.0 [facility] Comment on above: Performed By: #### M G, CMP #### [facility] [address] [place] [address] Dr. Isabell Muñoz Urea nitrogen/Creatinine [Mass ratio] 18.6 mg/mg Normal [facility] Comment on above: Performed By: #### M G, CMP #### [facility] [address] [place] [address] Dr. Isabell Muñoz TROPONIN, HIGH SENSITIVITYon 01-17-2023 HSTROP 5.2 pg/mL Normal 4.0-51.3 [facility] Comment on above: Result Comment: CUT- OFF POINTS HAVE BEEN ESTABLISHED BASED ON THE FOURTH UNIVERSAL DEFINITIONS OF MYOCARDIAL INFARCTION. THE UPPER REFERENCE LIMIT (URL) OF TROPONIN, DEFINED THE 99TH PERCENTILE OF cTnI DISTRIBUTION IN A REFERENCE POPULATION, HAS BEEN CONFIRMED THE DECISION THRESHOLD FOR [place] DIAGNOSIS. Performed By: #### H STROPN ####[facility] [address] [address]Dr. Isabell Muñoz BNPon 01-16-2023 Natriuretic peptide B (Bld) [Mass/Vol] 29.0 pg/mL Normal <=900.0 [facility] Comment on above: Performed By: #### B PICC NURSE, CK, HSTROPN, CMP #### [facility] [address] [address] [address] Isabell Muñoz CBC AUTO DIFFon 01-16-2023 BASO # 0.1 103/ul Normal 0.0-0.1 [facility] Comment on above: Performed By: #### C BC #### [facility] [address] [place] [address] Dr. Isabell Muñoz Basophils/100 WBC (Bld) 0.8 % Normal 0.2-2.0 [facility] Comment on above: Performed By: #### C BC #### [facility] [address] [place] [address] Dr. Isabell Muñoz EO # 0.1 103/ul Normal 0.0-0.7 [facility] Comment on above: Performed By: #### C BC #### [facility] [address] [place] [address] Dr. Isabell Muñoz Eosinophils/100 WBC (Bld) 0.6 % Critically low 0.9-7.0 [facility] Comment on above: Performed By: #### C BC #### [facility] [address] [place] [address] Dr. Isabell Muñoz Erythrocyte distribution width (RBC) [Ratio] 17.9 % Critically high 11.0-15.0 [facility] Comment on above: Performed By: #### C BC #### [facility] [address] [place] [address] Dr. Isabell Muñoz Hematocrit (Bld) [Volume fraction] 47.1 % Normal 36.0-48.0 [facility] Comment on above: Performed By: #### C BC #### [facility] [address] [place] [address] Dr. Isabell Muñoz Hemoglobin (Bld) [Mass/Vol] 14.6 g/dL Normal 12.0-16.0 [facility] Comment on above: Performed By: #### C BC #### [facility] [address] [place] [address] Dr. Isabell Muñoz IG # 0.06 10e3/ul Critically high 0.00-0.03 [facility] Comment on above: Performed By: #### C BC #### [facility] [address] [place] [address] Dr. Isabell Muñoz IG % 0.6 % Critically high 0.0-0.5 [facility] Comment on above: Performed By: #### C BC #### [facility] [address] [place] [address] Dr. Isabell Muñoz LYMPH # 3.3 103/ul Normal 1.2-3.8 [facility] Comment on above: Performed By: #### C BC #### [facility] [address] [place] [address] Dr. Isabell Muñoz Lymphocytes/100 WBC (Bld) 30.4 % Normal 20.5-60.0 [facility] Comment on above: Performed By: #### C BC #### [facility] [address] [place] [address] Dr. Isabell Muñoz MANUAL DIFF REQ NO Normal [facility] Comment on above: Performed By: #### C BC #### [facility] [address] [place] [address] Dr. Isabell Muñoz MCH (RBC) [Entitic mass] 23.9 pg Critically low 26.7-34.0 [facility] Comment on above: Performed By: #### C BC #### [facility] [address] [place] [address] Dr. Isabell Muñoz MCHC (RBC) [Mass/Vol] 31.0 g/dL Normal 29.9-35.2 [facility] Comment on above: Performed By: #### C BC #### [facility] [address] [address] [address] Isabell Muñoz MCV (RBC) [Entitic vol] 77.1 fL Critically low 81.0-99. 0 [facility] Comment on above: Performed By: #### C BC #### [facility] [facility] [address] [address] [address] Isabell Muñoz MONO # 1.0 103/ul Critically high 0.3-0.8 [facility] Comment on above: Performed By: #### C BC #### [facility] [address] [address] [address] Isabell Muñoz Monocytes/100 WBC (Bld) 9.1 % Normal 1.7-12.0 [facility] Comment on above: Performed By: #### C BC #### [facility] [address] [address] [address] Isabell Muñoz NEUT # 6.3 103/ul Normal 1.4-6.5 [facility] Comment on above: Performed By: #### C BC #### [facility] [address] [address] [address] Isabell Muñoz Neutrophils/100 WBC (Bld) 58.5 % Normal 43.0-75.0 [facility] Comment on above: Performed By: #### C BC #### [facility] [address] [address] [address] Isabell Muñoz Platelet mean volume (Bld) [Entitic vol] 8.5 fL Critically low 9.5-13.5 [facility] Comment on above: Performed By: #### C BC #### [facility] [address] [address] [address] Isabell Muñoz PLT 341 103/ul Normal 150-450 [facility] Comment on above: Performed By: #### C BC #### [facility] [address] [address] [address] Isabell Muñoz RBC 6.11 106/ul Critically high 4.20-5.40 [facility] Comment on above: Performed By: #### C BC #### [facility] [address] [address] [address] Isabell Muñoz WBC 10.7 103/ul Normal 4.0-11.0 [facility] Comment on above: Performed By: #### C BC #### [facility] [address] [place], [place] [address] Dr. Isabell Muñoz CPKon 01-16-2023 CK [Catalytic activity/Vol] 167 U/L Normal 26-192 [facility] Comment on above: Performed By: #### B PICC NURSE, CK, HSTROPN, CMP #### [facility] [id number] Isabell Muñoz CTA CHEST WO W [...] No evidence of pneumonia. Electronically authenticated by: [facility] Date: 2023-01-16 18:35 Normal [facility] PROF 14(COMP METB)on 023 Albumin [Mass/Vol] 3.8 g/dL Normal 3.4-5.0 [facility] Comment on above: Performed By: #### B PICC NURSE, CK, HSTROPN, CMP #### [facility] [address] [address] [address] Isabell Muñoz Albumin/Globulin [Mass ratio] 1.0 {ratio} Normal [facility] Comment on above: Performed By: #### B PICC NURSE, CK, HSTROPN, CMP #### [facility] [address] [place] [address] Dr. Isabell Muñoz ALP [Catalytic activity/Vol] 75 U/L Normal 46-116 [facility] Comment on above: Performed By: #### B PICC NURSE, CK, HSTROPN, CMP #### [facility] [address] [place] [address] Dr. Isabell Muñoz ALT [Catalytic activity/Vol] 37 U/L Normal 14-59 [facility] Comment on above: Performed By: #### B PICC NURSE, CK, HSTROPN, CMP #### [facility] [address] [place] [address] Dr. Isabell Muñoz Anion gap [Moles/Vol] 14.5 mmol/L Normal [facility] Comment on above: Performed By: #### B PICC NURSE, CK, HSTROPN, CMP #### [facility] [address] [place] [address] Dr. Isabell Muñoz AST [Catalytic activity/Vol] 17 U/L Normal 15-37 [facility] Comment on above: Performed By: #### B PICC NURSE, CK, HSTROPN, CMP #### [facility] [address] [place] [address] Dr. Isabell Muñoz Bilirubin [Mass/Vol] 0.4 mg/dL Normal 0.2-1.0 [facility] Comment on above: Performed By: #### B PICC NURSE, CK, HSTROPN, CMP #### [facility] [address] [place] [address] Dr. Isabell Muñoz Calcium [Mass/Vol] 8.5 mg/dL Normal 8.5-10.1 [facility] Comment on above: Performed By: #### B PICC NURSE, CK, HSTROPN, CMP #### [facility] [address] [place] [address] Dr. Isabell Muñoz Chloride [Moles/Vol] 102 mmol/L Normal 98-107 [facility] Comment on above: Performed By: #### B PICC NURSE, CK, HSTROPN, CMP #### [facility] [address] [address] [address] Isabell Muñoz CO2 [Moles/Vol] 25.6 mmol/L Normal 21.0-32.0 [facility] Comment on above: Performed By: #### B PICC NURSE, CK, HSTROPN, CMP #### [facility] [address] [place] [address] Dr. Isabell Muñoz Creatinine [Mass/Vol] 1.79 mg/dL Critically high 0.55-1.02 [facility] Comment on above: Performed By: #### B PICC NURSE, CK, HSTROPN, CMP #### [facility] [address] [place] [address] Dr. Isabell Muñoz EGFR-AF [place] 35 mL/min/1.73m2 Critically low >=60 [facility] Comment on above: Performed By: #### B PICC NURSE, CK, HSTROPN, CMP #### [facility] [address] [place] [address] Dr. Isabell Muñoz EGFR-NON AF [place] 29 mL/min/1.73m2 Critically low >=60 [facility] Comment on above: Performed By: #### B PICC NURSE, CK, HSTROPN, CMP #### [facility] [address] [place] [address] Dr. Isabell Muñoz Globulin (S) [Mass/Vol] 3.8 g/dL Normal [facility] Comment on above: Performed By: #### B PICC NURSE, CK, HSTROPN, CMP #### [facility] [address] [place] [address] Dr. Isabell Muñoz Glucose [Mass/Vol] 105 mg/dL Normal 74-106 [facility] Comment on above: Performed By: #### B PICC NURSE, CK, HSTROPN, CMP #### [facility] [address] [place] [address] Dr. Isabell Muoñz Potassium [Moles/Vol] 5.1 mmol/L Normal 3.5-5.1 [facility] Comment on above: Performed By: #### B PICC NURSE, CK, HSTROPN, CMP #### [facility] [address] [address] [address] Isabell Muñoz Protein [Mass/Vol] 7.6 g/dL Normal 6.4-8.2 [facility] Comment on above: Performed By: #### B PICC NURSE, CK, HSTROPN, CMP #### [facility] [address] [address] [address] Isabell Muñoz Sodium [Moles/Vol] 137 mmol/L Normal 136-145 [facility] Comment on above: Performed By: #### B PICC NURSE, CK, HSTROPN, CMP #### [facility] [address] [address] [address] Isabell Muñoz Urea nitrogen [Mass/Vol] 28.0 mg/dL Critically high 7.0-18.0 [facility] Comment on above: Performed By: #### B PICC NURSE, CK, HSTROPN, CMP #### [facility] [address] [address] [address] Isabell Muñoz Urea nitrogen/Creatinine [Mass ratio] 15.6 mg/mg Normal [facility] Comment on above: Performed By: #### B PICC NURSE, CK, HSTROPN, CMP #### [facility] [address] [address] [address] Isabell Muñoz PROTIMEon 01-16-2023 INR Coag (PPP) [Relative time] 0.95 {INR} Normal [facility] Comment on above: Performed By: #### P TT, PT ####[facility] [id number] [address] Isabell Muñoz INR GUIDELINES SEE BELOW Normal [facility] Comment on above: Result Comment: PATO RED INR: 2.0 - 3.0 CONDITIONS NOT LISTED BELOW 2.5 - 3.5 FOR PROSTHETIC HEART VALVE REPLACEMENT 2.5 - 3.5 RECURRENT THROMBOSIS Performed By: #### P TT, PT ####[facility] [id number] [address]Dr[address] Isabell Muñoz PT Coag (PPP) [Time] 10.1 s Normal 9.0-11.6 [facility] Comment on above: Performed By: #### P TT, PT ####[facility] [id number] [id number] Muñoz PTTon 01-16-2023 aPTT Coag (Bld) [Time] 26.7 s Normal 22.3-36.2 [facility] Comment on above: Performed By: #### P TT, PT ####[facility] [id number] [id number] Muñoz TROPONIN, HIGH SENSITIVITYon 01-16-2023 HSTROP 4.7 pg/mL Normal 4.0-51.3 [facility] Comment on above: Result Comment: CUT- OFF POINTS HAVE BEEN ESTABLISHED BASED ON THE FOURTH UNIVERSAL DEFINITIONS OF MYOCARDIAL INFARCTION. THE UPPER REFERENCE LIMIT (URL) OF TROPONIN, DEFINED THE 99TH PERCENTILE OF cTnI DISTRIBUTION IN A REFERENCE POPULATION, HAS BEEN CONFIRMED THE DECISION THRESHOLD FOR [place] DIAGNOSIS. Performed By: #### H STROPN ####[facility] [id number] [id number] Isabell Muñoz HSTROP 4.7 pg/mL Normal 4.0-51.3 [facility] Comment on above: Result Comment: CUT- OFF POINTS HAVE BEEN ESTABLISHED BASED ON THE FOURTH UNIVERSAL DEFINITIONS OF MYOCARDIAL INFARCTION. THE UPPER REFERENCE LIMIT (URL) OF TROPONIN, DEFINED THE 99TH PERCENTILE OF cTnI DISTRIBUTION IN A REFERENCE POPULATION, HAS BEEN CONFIRMED THE DECISION THRESHOLD FOR [place] DIAGNOSIS. Performed By: #### B PICC NURSE, CK, HSTROPN, CMP #### [facility] [address] [address] [address] Isabell ZABALA L[facility]ZA DIGITAL DIAGNOSTIC UNILATERAL RIGHTon 12-02-2021 [facility] L[facility]ZA DIGITAL DIAGNOSTIC UNILATERAL RIGHT EXAMINATION: [...] to the patient regarding the results. [employer] recommends annual mammograms for women 40 years and older. Interpreted by: Dmitri Gaston DO Signed by: Dmitri Gaston DO 12/02/21 Final result Normal [facility] No mammographic evidence of malignancy BIRADS: BIRADS - CATEGORY 1 Negative. Normal interval follow-up is recommended in 12 months. OVERALL ASSESSMENT - NEGATIVE A letter of notification will be sent to the patient regarding the results. [employer] recommends annual mammograms for women 40 years and older. [facility] EXAMINATION: DIAGNOSTIC DIGITAL RIGHT BREAST MAMMOGRAM [...] imaging. No suspicious findings on this exam. [facility] Radiology Study observation (narrative) [facility] Work Phone: [facility] LUIZA DIGITAL DIAGNOSTIC UNILATERAL RIGHTOrdered By: Dmitri Gaston on 12-02-2021 [facility] Work Phone: [facility] LUIZA DIGITAL SCREEN SELF REFERRAL W OR WO CAD BILATERALon 11-27-2021 [facility] L[facility]ZA DIGITAL SCREEN SELF REFERRAL W [...] Dmitri Gaston DO 11/27/21 Final result Normal [facility] Focal asymmetry outer retroareolar right breast. Recommend true lateral and spot compressed CC and MLO views for complete evaluation with possible progression to ultrasound. BIRADS: BIRADS - CATEGORY 0 Incomplete: Needs Additional Imaging Evaluation OVERALL ASSESSMENT - INCOMPLETE:NEED ADDITIONAL IMAGING EVALUATION. [facility] EXAMINATION: SCREENING DIGITAL BILATERAL MAMMOGRAM WITH [...] findings. No suspicious calcification in either breast. [facility] [place] LUIZA DIGITAL SCREEN SELF REFERRAL W OR WO CAD BILATERALOrdered By: Dmitri Gaston on 11-27-2021 [facility] Work Phone: Lipid Profileon 11-26-2021 Cholesterol [Mass/Vol] 286 mg/dL High <200 [facility] Comment on above: Result Comment: Cholesterol Guidelines: <200 Desirable 200-240 Borderline >240 Undesirable Performed By: #### C DP CP #### [facility] [address] [place] [address] In Store Banker: Demarcus Peter MD #### LIPR #### [facility] [place], [place] [id number] In Store Banker: Deo Montalvo MD Cholesterol in HDL [Mass/Vol] 40 mg/dL Low >40 [facility] Comment on above: Result Comment: HDL Guidelines: <40 Undesirable 40-59 Borderline >59 Desirable Performed By: #### C DP, CP #### [facility] [address] [place], [place] [id number] In Store Banker: Demarcus Peter MD #### LIPR #### [address] [phone] In Store Banker: Deo Montalvo MD Cholesterol in LDL [Mass/Vol] 212 mg/dL High 0-130 [facility] Comment on above: Result Comment: LDL Guidelines: <100 Desirable 100-129 Near to/above Desirable 130-159 Borderline >159 Undesirable Direct (measured) LDL and calculated LDL are not interchangeable tests. Performed By: #### C DP, CP #### [facility] [address] [place] [address] [address] [phone] In Store Banker: Demarcus Peter MD #### LIPR #### [address] [id number] In Store Banker: Deo Montalvo MD Cholesterol.total/Alice sterol in HDL [Mass ratio] 7.2 {ratio} High <5 [facility] Comment on above: Performed By: #### C DP, CP #### [facility] [address] [place] [address] Dr. [place], [place] [id number] In Store Banker: Demarcus Peter MD #### LIPR #### [address] [phone] In Store Banker: Deo Montalvo MD Triglyceride [Mass/Vol] 169 mg/dL High <150 [facility] Comment on above: Result Comment: Triglyceride Guidelines: <150 Desirable 150-199 Borderline 200-499 High >499 Very high Based on AHA Guidelines for fasting triglyceride, June 2012. Performed By: #### C DP, CP #### [facility] [address] [place], [place] [phone] In Store Banker: Demarcus Peter MD #### LIPR #### [facility] [address] [id number] In Store Banker: Deo Montalvo MD CBC with Auto Differentialon 11-25-2021 Absolute Eos # 0.15 [facility] th Absolute Immature Granulocyte <0.03 [facility] Absolute Lymph # 2.66 [facility] alth Absolute [place] [facility] Bas[facility] (Bld) [#/Vol] 0.05 10*3/uL [facility] Basophils/100 WBC (Bld) 1 % 0 - 2 % [facility] Eosinophils/100 WBC (Bld) 2 % 1 - 4 % [facility] Hematocrit (Bld) [Volume fraction] 46.6 % 36.3 - 47.1 % [facility] Hemoglobin.gastrointest inal spec 1 Ql (Stl) 13.9 g/dL 11.9 - 15.1 g/dL [facility] Immature granulocytes/100 WBC (Bld) 0 % 0 [facility] Interpretation and review of laboratory results Abnormal [facility] Lymphocytes/100 WBC (Bld) 41 % 24 - 43 % [facility] MCH (RBC) [Entitic mass] 23.7 pg Low 25.2 - 33.5 pg [facility] MCHC (RBC) [Mass/Vol] 29.8 g/dL 28.4 - 34.8 g/dL [facility] MCV (RBC) [Entitic vol] 79.5 fL Low 82.6 - 102.9 fL [facility] Monocytes/100 WBC (Bld) 9 % 3 - 12 % [facility] NRBC Automated 0.0 0.0 per 100 WBC [facility] Platelet distribution width (Bld) [Ratio] 15.9 % High 11.8 - 14.4 % [facility] Platelet mean volume (Bld) [Entitic vol] 9.0 fL 8.1 - 13.5 fL [facility] Platelets (Bld) [#/Vol] 290 10*3/uL [facility] RBC (Bld) [#/Vol] 5.86 10*6/uL High 3.95 - 5.1 1 m/uL [facility] Segmented neutrophils/100 WBC (Bld) 47 % 36 - 65 % [facility] Segs Absolute 3.04 [facility] WBC (Bld) [#/Vol] 6.5 10*3/uL [facility] CBC with Diffon 11-25-2021 Abs. Basophil 0.05 k/uL Normal 0.00-0.20 [facility] Comment on above: Performed By: #### C DP, CP #### [facility] [address] [place], [place] [id number] In Store Banker: Demarcus Peter MD #### LIPR #### [address] [address] In Store Banker: Deo Montalvo MD Abs.Imm.Granulocyte <0.03 Normal 0.00-0.30 [facility] Comment on above: Performed By: #### C DP, CP #### [facility] [address] [place] [address] [address] [phone] In Store Banker: Demarcus Peter MD #### LIPR #### [address] [address] In Store Banker: Deo Montalvo MD Abs.Neutrophil (Seg) 3.04 k/uL Normal 1.50-8.10 [facility] Comment on above: Performed By: #### C DP, CP #### [facility] [address] [place] [address] [address] [phone] In Store Banker: Demarcus Peter MD #### LIPR #### [address] [address] In Store Banker: Deo Montalvo MD Basophils/100 WBC (Bld) 1 % Normal 0-2 [facility] Comment on above: Performed By: #### C DP, CP #### [facility] [address] [place] [address] [address] [phone] In Store Banker: Demarcus Peter MD #### LIPR #### [address] [address] In Store Banker: Deo Montalvo MD Eosinophils (Bld) [#/Vol] 0.15 10*3/uL Normal 0.00-0.44 [facility] Comment on above: Performed By: #### C DP, CP #### [facility] [address] [place] [address] [place] [address] In Store Banker: Demarcus Peter MD #### LIPR #### [address] [address] In Store Banker: Deo Montalvo MD Eosinophils/100 WBC (Bld) 2 % Normal 1-4 [facility] Comment on above: Performed By: #### C DP, CP #### [address] [place] [address] In Store Banker: Demarcus Peter MD #### LIPR #### [place] [address] In Store Banker: Deo Montalvo MD Erythrocyte distribution width (RBC) [Ratio] 15.9 % High 11.8-14.4 [facility] Comment on above: Performed By: #### C DP, CP #### [address] [place] [address] In Store Banker: Demarcus Peter MD #### LIPR #### [place] [address] In Store Banker: Deo Montalvo MD Hematocrit (Bld) [Volume fraction] 46.6 % Normal 36.3-47.1 [facility] Comment on above: Performed By: #### C DP, CP #### [address] [phone] ( In Store Banker: Demarcus Peter MD #### LIPR #### [address] [address] In Store Banker: Deo Montalvo MD Hemoglobin (Bld) [Mass/Vol] 13.9 g/dL Normal 11.9-15.1 [facility] Comment on above: Performed By: #### C DP, CP #### [facility] [address] [place] [address] In Store Banker: Demarcus Peter MD #### LIPR #### [address] [phone] In Store Banker: Deo Montalvo MD Immature granulocytes/100 WBC (Bld) 0 % Normal 0 [facility] Comment on above: Performed By: #### C DP, CP #### [facility] [address] [place] [phone] In Store Banker: Demarcus Peter MD #### LIPR #### [address] [phone] In Store Banker: Deo Montalvo MD Lymphocytes (Bld) [#/Vol] 2.66 10*3/uL Normal 1.10-3.70 [facility] Comment on above: Performed By: #### C DP, CP #### [facility] [address] [place] [phone] In Store Banker: Demarcus Peter MD #### LIPR #### [address] [id number] In Store Banker: Deo Montalvo MD Lymphocytes/100 WBC (Bld) 41 % Normal 24-43 [facility] Comment on above: Performed By: #### C DP, CP #### [facility] [address] [place] [phone] In Store Banker: Demarcus Peter MD #### LIPR #### [address] [address] In Store Banker: Deo Montalvo MD MCH (RBC) [Entitic mass] 23.7 pg Low 25.2-33.5 [facility] Comment on above: Performed By: #### C DP, CP #### [facility] [address] [place] [address] In Store Banker: Demarcus Peter MD #### LIPR #### [address] [id number] In Store Banker: Deo Montalvo MD MCHC (RBC) [Mass/Vol] 29.8 g/dL Normal 28.4-34.8 [facility] Comment on above: Performed By: #### C DP, CP #### [facility] [address] [place] [address] In Store Banker: Demarcus Peter MD #### LIPR #### [address] [id number] In Store Banker: Deo Montalvo MD MCV (RBC) [Entitic vol] 79.5 fL Low 82.6-102.9 [facility] Comment on above: Performed By: #### C DP, CP #### [facility] [address] [place] [address] In Store Banker: Demarcus Peter MD #### LIPR #### [address] [id number] In Store Banker: Deo Montalvo MD Monocytes (Bld) [#/Vol] 0.55 10*3/uL Normal 0.10-1.20 [facility] Comment on above: Performed By: #### C DP, CP #### [facility] [address] [place] [address] In Store Banker: Demarcus Peter MD #### LIPR #### [address] [id number] In Store Banker: Deo Montalvo MD Monocytes/100 WBC (Bld) 9 % Normal 3-12 [facility] Comment on above: Performed By: #### C DP, CP #### [facility] [address] [place] [address] In Store Banker: Demarcus Peter MD #### LIPR #### [address] [address] In Store Banker: Deo Montalvo MD Neutrophil (Seg) 47 % Normal 36-65 [facility] Comment on above: Performed By: #### C DP, CP #### [facility] [address] [place], [place] [id number] In Store Banker: Demarcus Peter MD #### LIPR #### [address] [address] In Store Banker: Deo Montalvo MD NRBC Automated 0.0 per 100 WBC Normal 0.0 [facility] Comment on above: Performed By: #### C DP, CP #### [facility] [address] [place] [address] [place], [place] [phone] In Store Banker: Demarcus Peter MD #### LIPR #### [address] [address] In Store Banker: Deo Montalvo MD Platelet mean volume (Bld) [Entitic vol] 9.0 fL Normal 8.1-13.5 [facility] Comment on above: Performed By: #### C DP, CP #### [facility] [address] [place] [address] Dr. [place], [place] [id number] In Store Banker: Demarcus Peter MD #### LIPR #### [address] [address] In Store Banker: Deo Montalvo MD Platelets (Bld) [#/Vol] 290 10*3/uL Normal 138-453 [facility] Comment on above: Performed By: #### C DP, CP #### [facility] [address] [place] [address] [place], [place] [phone] In Store Banker: Demarcus Peter MD #### LIPR #### [facility] [address] [place], [place] [id number] In Store Banker: Deo Montalvo MD RBC (Bld) [#/Vol] 5.86 10*6/uL High 3.95-5.11 [facility] Comment on above: Performed By: #### C ALMA, CP #### [address] [place], [place] [id number] In Store Banker: Demarcus Peter MD #### LIPR #### [address] [place], [place] [phone] In Store Banker: Deo Montalvo MD WBC (Bld) [#/Vol] 6.5 10*3/uL Normal 3.5-11.3 [facility] Comment on above: Performed By: #### C ALMA, CP #### [address] [place], [place] [phone] In Store Banker: Demarcus Peter MD #### LIPR #### [address] [id number] [place], [place] [id number] In Store Banker: Deo Montlavo MD Comp Metabolic Profon 2021 (cont.) [facility] Comment on above: Result Comment: Aver age GFR for 50-59 years old: 93 mL/min/1.73sq m Chronic Kidney Disease: <60 mL/min/1.73sq m Kidney failure: <15 mL/min/1.73sq m eGFR calculated using average adult body mass. Additional eGFR calculator available at: http://www.[employer].com/multiple_crcl_2012.htm Performed By: #### C ALMA, CP #### [address] [place], [place] [id number] In Store Banker: Demarcus Peter MD #### LIPR #### [id number] [place] [address] In Store Banker: Deo Montalvo MD Albumin [Mass/Vol] 4.1 g/dL Normal 3.5-5.2 [facility] Comment on above: Performed By: #### C DP, CP #### [address] [place] [address] In Store Banker: Demarcus Peter MD #### LIPR #### [address] [address] In Store Banker: Deo Montalvo MD Albumin/Glob Ratio 1.4 Normal 1.0-2.5 [facility] Comment on above: Performed By: #### C DP, CP #### [address] [place] [id number] ( In Store Banker: Demarcus Peter MD #### LIPR #### [address] [address] In Store Banker: Deo Montalvo MD Alkaline Phos 56 U/L Normal 35-104 [facility] Comment on above: Performed By: #### C DP, CP #### [address] [place] [address] In Store Banker: Demarcus Peter MD #### LIPR #### [address] [address] In Store Banker: Deo Montalvo MD ALT [Catalytic activity/Vol] 17 U/L Normal 5-33 [facility] Comment on above: Performed By: #### C DP, CP #### [address] [place] [address] In Store Banker: Demarcus Peter MD #### LIPR #### [address] [address] In Store Banker: Deo Montalvo MD Anion gap [Moles/Vol] 9 mmol/L Normal 9-17 [facility] Comment on above: Performed By: #### C DP, CP #### [facility] [address] [place], [place] [address] In Store Banker: Demarcus Peter MD #### LIPR #### [address] [address] In Store Banker: Deo Montalvo MD AST [Catalytic activity/Vol] 12 U/L Normal <32 [facility] Comment on above: Performed By: #### C DP, CP #### [facility] [address] [place], [place] [id number] In Store Banker: Demarcus Peter MD #### LIPR #### [address] [address] In Store Banker: Deo Montalvo MD Bilirubin [Mass/Vol] 0.39 mg/dL Normal 0.3-1.2 [facility] Comment on above: Performed By: #### C DP, CP #### [address] [place], [place] [id number] In Store Banker: Demarcus Peter MD #### LIPR #### [address] [address] In Store Banker: Deo Montalvo MD BUN/CRE Ratio 16 Normal 9-20 [facility] Comment on above: Performed By: #### C DP, CP #### [facility] [address] [place], [place] 2[address] In Store Banker: Demarcus Peter MD #### LIPR #### [address] [address] In Store Banker: Deo Montalvo MD Calcium [Mass/Vol] 9.2 mg/dL Normal 8.6-10.4 [facility] Comment on above: Performed By: #### C DP, CP #### [address] [place], [place] [address] In Store Banker: Demarcus Peter MD #### LIPR #### [address] [address] In Store Banker: Deo Montalvo MD Chloride [Moles/Vol] 102 mmol/L Normal 98-107 [facility] Comment on above: Performed By: #### C DP, CP #### [address] [place], [place] [address]83 In Store Banker: Demarcus Peter MD #### LIPR #### [address] [address] In Store Banker: Deo Montalvo MD CO2 [Moles/Vol] 29 mmol/L Normal 20-31 [facility] Comment on above: Performed By: #### C DP, CP #### [address] [place], [place] [address] In Store Banker: Demarcus Peter MD #### LIPR #### [address] [address] In Store Banker: Deo Montalvo MD Creatinine [Mass/Vol] 0.79 mg/dL Normal 0.50-0.90 [facility] Comment on above: Performed By: #### C DP, CP #### [address] [place], [place] 127[address] In Store Banker: Demarcus Peter MD #### LIPR #### [address] [address] In Store Banker: Deo Montalvo MD GFR, Amer >60 Normal >60 [facility] Comment on above: Performed By: #### C DP, CP #### [address] [place], [place] [address] In Store Banker: Demarcus Peter MD #### LIPR #### [facility] [address] [place] [address] In Store Banker: Deo Montalvo MD GFR,non Amer >60 Normal >60 [facility] Comment on above: Performed By: #### C DP, CP #### [facility] [address] [place], [place] [address] In Store Banker: Demarcus Peter MD #### LIPR #### [address] [address] In Store Banker: Deo Montalvo MD Glucose [Mass/Vol] 88 mg/dL Normal 70-99 [facility] Comment on above: Performed By: #### C DP, CP #### [facility] [address] [place] [address] [place] [place], [place] [address] In Store Banker: Demarcus Peter MD #### LIPR #### [address] [address] In Store Banker: Deo Montalvo MD Potassium [Moles/Vol] 4.3 mmol/L Normal 3.7-5.3 [facility] Comment on above: Performed By: #### C DP, CP #### [address] [place], [place] 17[address] In Store Banker: Demarcus Peter MD #### LIPR #### [address] [address] In Store Banker: Deo Montalvo MD Protein [Mass/Vol] 7.0 g/dL Normal 6.4-8.3 [facility] Comment on above: Performed By: #### C DP, CP #### [facility] [address] [place] [address] [place] [place], [place] [id number] In Store Banker: Demarcus Peter MD #### LIPR #### [address] [address] In Store Banker: Deo Montalvo MD Sodium [Moles/Vol] 140 mmol/L Normal 135-144 [facility] Comment on above: Performed By: #### C DP, CP #### [facility] [address] [place], [place] [address] In Store Banker: Demarcus Peter MD #### LIPR #### [address] [place], [place] [id number] In Store Banker: Deo Montalvo MD Staging: Normal [facility] Comment on above: Result Comment: Stag e 1: Some kidney damage normal GFR Stage 2: Mild kidney damage GFR 60-89 Stage 3: Moderate kidney damage GFR 30-59 Stage 4: Severe kidney damage GFR 15-29 Stage 5: Severe kidney damage GFR <15 ESRD - chronic treatment by dialysis or transplant Performed By: #### C ALMA, CP #### [facility] [address] [place] [address] In Store Banker: Demarcus Peter MD #### LIPR #### [address] [address] In Store Banker: Deo Montalvo MD Urea nitrogen [Mass/Vol] 13 mg/dL Normal 6-20 [facility] Comment on above: Performed By: #### C DP, CP #### [facility] [address] [place], [place] [phone] In Store Banker: Demarcus Peter MD #### LIPR #### [address] [address] In Store Banker: Deo Montalvo MD Comprehensive Metabolic Pane [facility] 11-25-2021 Albumin [Mass/Vol] 4.1 g/dL 3.5 - 5.2 g/dL [facility] Albumin/Globulin [Mass ratio] 1.4 {ratio} [facility] ALP (Bld) [Catalytic activity/Vol] 56 U/L 35 - 104 U/L [facility] ALT [Catalytic activity/Vol] 17 U/L 5 - 33 U/L [facility] Anion gap [Moles/Vol] 9 mmol/L 9 - 17 mmol/L [facility] AST [Catalytic activity/Vol] 12 U/L <32 [facility] Bilirubin [Mass/Vol] 0.39 mg/dL 0.3 - 1 .2 mg/dL [facility] Calcium [Mass/Vol] 9.2 mg/dL 8.6 - 10. 4 mg/dL [facility] Chloride [Moles/Vol] 102 mmol/L 98 - 10 7 mmol/L [facility] CO2 [Moles/Vol] 29 mmol/L 20 - 31 mmol/L [facility] Creatinine [Mass/Vol] 0.79 mg/dL 0.50 - 0.90 mg/dL [facility] Free PSA/Total PSA [Mass fraction] 7.0 g/dL 6.4 - 8.3 g/dL [facility] GFR >60 >60 mL/min [facility] GFR Non- >60 >60 mL/min [facility] Glucose [Mass/Vol] 88 mg/dL 70 - 99 mg/dL [facility] Potassium [Moles/Vol] 4.3 mmol/L 3.7 - 5.3 mmol/L [facility] Sodium [Moles/Vol] 140 mmol/L 135 - 144 mmol/L [facility] Urea nitrogen (BldV) [Mass/Vol] 13 mg/dL 6 - 20 mg/dL [facility] Urea nitrogen/Creatinine (Bld) [Mass ratio] 16 [facility] - Chemistry and C hemistry - challengeon 11-25-2021 GFR/1.73 sq M.predicted MDRD (S/P/Bld) [Vol rate/Area] [facility] Comment on above: Average GFR for 50-5 9 years old: 93 mL/min/1.73sq m Chronic Kidney Disease: <60 mL/min/1.73sq m Kidney failure: <15 mL/min/1.73sq m eGFR calculated using average adult body mass. Additional eGFR calculator available at: http://www.[employer]/multiple_crcl_2012.htm Stage 1: Some kidney damage normal GFR Stage 2: Mild kidney damage GFR 60-89 Stage 3: Moderate kidney damage GFR 30-59 Stage 4: Severe kidney damage GFR 15-29 Stage 5: Severe kidney damage GFR <15 ESRD - chronic treatment by dialysis or transplant SAG[facility]IO LUIZA DIGITAL SCREEN SELF REFERRAL W OR WO CAD BILATERALon 11-25-2021 Radiology Study observation (narrative) [employer] Phone: No Panel InformationOrdered By: Marcelino Cheney on 04-11-2021 Mild degenerative changes No acute bony or joint space findings [email or web address] Phone: EXAMINATION: TWO XRAY VIEWS OF THE [...] soft tissue calcification or bony destructive lesion [email or web address] Phone: Mehdi, Mhpn Incoming Radiant Results From [employer] - 04/11/2021 1:38 PM EDT EXAMINATION: TWO [...] No acute bony or joint space findings [email or web address] Phone: [email or web address] Phone: XR CLAVICLE LEFTon XR CLAVICLE LEFT [...] Noreen Zamudio MD 04/11/21 Final result Normal [facility] XR RIBS LEFT (2 VIEWS)on XR RIBS [...] La Cruz MD 04/11/21 Final result Normal [facility] XR RIBS LEFT (2 VIEWS)Ordere d By: Marcelino Cheney on 04-11-2021 No acute cardiopulmonary process. No evidence for a displaced rib fracture. [email or web address] Phone: EXAMINATION: 3 XRAY VIEWS OF THE LEFT RIBS 04/11/2021 1:17 pm COMPARISON: None. HISTORY: ORDERING SYSTEM PROVIDED HISTORY: Contusion of left shoulder, initial encounter FINDINGS: The lungs are without consolidation or effusion. There is no pneumothorax. The mediastinal structures are unremarkable. The upper abdomen unremarkable. The extrathoracic soft tissues are unremarkable. There is no evidence for a displaced rib fracture. [email or web address] Phone: Mehdi, pn Incoming Radiant Results From [facility] - 04/11/2021 2:36 PM EDT EXAMINATION: 3 [...] No evidence for a displaced rib fracture. [email or web address] Phone: [facility] Work Phone: XR SHOULDER LEFT (MIN 2 VIEW [...] by: Noreen Zamudio MD 04/11/21 Final result [facility] Coding Summary.on 10-13-2020 Coding Summary. CODING DATE: 10/12/2020 FINAL [facility] STATUS: Home (Routine DC) PAYOR: Commercial Insurance [...] Grimaldo CphT Date Saved: 10/12/2020 10:12 pm [facility] C Fluidon 10-07-2020 Fluid Culture Microbiology PROCEDURE: Fluid Culture [R1] SOURCE: Synov Fl BODY SITE: Knee L COLLECTED DATE/TIME: 10/04/2020 14:40 EST RECEIVED DATE/TIME: 10/04/2020 15:51 EST START DATE/TIME: 10/04/2020 15:51 EST FREE TEXT SOURCE: Left Knee Cherry SANCHEZ, Arnel Carey DO, Arnel Turner FINAL REPORTS Final Report [] Verified Date/Time: 10/07/2020 13:49 EST No growth at 3 days. STAINS Gram Stain Report [] Verified Date/Time: 10/05/2020 10:49 EST 2+ White Blood Cells No organisms seen. Performing Locations R1: This test was performed at: [facility], [address] [place] [address], [phone] , [place], Normal [facility] Comment on above: Performed By: #### 2 [id number] #### [facility] [address] [place] [address] Crystal Examon 10-05-2020 Crystal Rare intracellular calcium pyrophosphate crystals identified. [facility] Comment on above: Performed By: #### 1 [id number] #### [facility] [address] [place] [address] Crystal Spec Source Knee L [facility] Comment on above: Performed By: #### 1 [id number] #### [facility] [address] [place] [address] Crystal Spec Type Synovial fluid Normal [facility] Comment on above: Performed By: #### 1 [id number] #### [facility] [address] [place] [address] BF Cell Cnton 10-04-2020 Clarity (Unsp spec) Turbid Normal [facility] Comment on above: Performed By: #### 2 [id number], [id number] #### [facility] [address] [place] [address] Color (Body fld) YELLOW Normal [facility] Comment on above: Performed By: #### 2 [id number], [id number] #### [facility] [address] [place] [address] RBC Auto (Body fld) [#/Vol] 3570 High <=0 [facility] Comment on above: Performed By: #### 2 [id number], [id number] #### [facility] [address] [place] [address] Specimen type Nom (Spec) Synovial fluid Normal [facility] Comment on above: Result Comment: left knee Performed By: #### 2 [id number], [id number] #### [facility] [address] [place] [address] WBC (Bld) [#/Vol] [address] 10*3/uL High <=0 [facility] Comment on above: Performed By: #### 2 [id number], [id number] #### [facility] [address] [place] [address] BF Diffon 10-04-2020 Lymphocytes Manual cnt (Body fld) [#/Vol] 5 % [facility] Comment on above: Order Comment: Order Added By Discern Expert. Performed By: #### 2 [id number], [id number] #### [facility] [address] [place] [address] Monocytes+Macrophages/1 00 leukocytes in Body fluid by Manual count 6 % [facility] Comment on above: Order Comment: Order Added By Discern Expert. Performed By: #### 2 [id number], [id number] #### [facility] [address] [place] [address] Segmented neutrophils Manual cnt (Body fld) [#/Vol] 89 % [facility] Comment on above: Order Comment: Order Added By Discern Expert. Performed By: #### 2 [id number], [id number] #### [facility] [address] [place] [address] Physician Orderon 10-04-2020 Physician Order [id number] Normal [facility] Vital Signs Date Time Vital Sign Value Performing Clinician Facility 05-03-2025 13:47-0400 Body height 162.56 cm [employer] DO Work Phone: [facility] 05-03-2025 13:47-0400 Body mass index (BMI) [Ratio] 38.5 kg/m2 [employer] DO Work Phone: [facility] 05-03-2025 13:47-0400 Body weight 101.77 kg [employer] DO Work Phone: [facility] 05-03-2025 13:47-0400 Diastolic blood pressure 85 mm[Hg] Marcelino [employer] DO Work Phone: [facility] 05-03-2025 13:47-0400 Heart rate 89 /min Marcelino Ball DO Work Phone: [facility] 05-03-2025 13:47-0400 Respiratory rate 12 /min Marcelino Ball DO Work Phone: [facility] 05-03-2025 13:47-0400 Systolic blood pressure 123 mm[Hg] Marcelino Ball DO Work Phone: [facility] 04-21-2025 11:53-0400 Body height 162.56 cm Marcelino Ball DO Work Phone: [facility] 04-21-2025 11:53-0400 Body mass index (BMI) [Ratio] 37.9 kg/m2 Marcelino Ball DO Work Phone: [facility] 04-21-2025 11:53-0400 Body weight 100.3 kg Marcelino Ball DO Work Phone: [facility] 04-21-2025 11:53-0400 Diastolic blood pressure 85 mm[Hg] Marcelino Ball DO Work Phone: [facility] 04-21-2025 11:53-0400 Heart rate 105 /min Marcelino Ball DO Work Phone: [facility] 04-21-2025 11:53-0400 Respiratory rate 12 /min Marcelino Ball DO Work Phone: [facility] 04-21-2025 11:53-0400 Systolic blood pressure 130 mm[Hg] Marcelino Ball DO Work Phone: [facility] 03-01-2025 08:41-0400 Body height 162.56 cm Marcelino Ball DO Work Phone: [facility] 03-01-2025 08:41-0400 Body mass index (BMI) [Ratio] 37.9 kg/m2 Marcelino Ball DO Work Phone: [facility] 03-01-2025 08:41-0400 Body weight 100.24 kg Marcelino Ball DO Work Phone: [facility] 03-01-2025 08:41-0400 Diastolic blood pressure 81 mm[Hg] Marcelino Ball DO Work Phone: [facility] 03-01-2025 08:41-0400 Heart rate 99 /min Marcelino Ball DO Work Phone: [facility] 03-01-2025 08:41-0400 Systolic blood pressure 112 mm[Hg] Marcelino Ball DO Work Phone: [facility] 09-15-2024 09:12-0500 Body height 162.6 cm Derek Brambila MD Work Phone: [facility] 09-15-2024 09:12-0500 Body mass index (BMI) [Ratio] 36.9 kg/m2 Derek Brambila MD Work Phone: [facility] 09-15-2024 09:12-0500 Body weight 97.52 kg Derek Brambila MD Work Phone: [facility] 07-01-2024 11:01-0400 Body height 162.56 cm [facility] 07-01-2024 11:01-0400 Body mass index (BMI) [Ratio] 35.2 kg/m2 [facility] 07-01-2024 11:01-0400 Body weight 92.98 kg [facility] 07-01-2024 11:01-0400 Diastolic blood pressure 87 mm[Hg] [facility] 07-01-2024 11:01-0400 Heart rate 86 /min [facility] 07-01-2024 11:01-0400 Respiratory rate 12 /min [facility] 07-01-2024 11:01-0400 Systolic blood pressure 134 mm[Hg] [facility] 01-15-2024 14:47-0400 Body height 162.56 cm [facility] 01-15-2024 14:47-0400 Body mass index (BMI) [Ratio] 32.1 kg/m2 [facility] 01-15-2024 14:47-0400 Body weight 84.93 kg [facility] 01-15-2024 14:47-0400 Diastolic blood pressure 71 mm[Hg] [facility] 01-15-2024 14:47-0400 Heart rate 93 /min [facility] 01-15-2024 14:47-0400 Respiratory rate 12 /min [facility] 01-15-2024 14:47-0400 Systolic blood pressure 106 mm[Hg] [facility] 01-22-2023 09:45-0400 Body height 162.56 cm Marcelino Ball Other [facility] [employer] Other 01-22-2023 09:45-0400 Body mass index (BMI) [Ratio] 35.08 kg/m2 Marcelino Ball Other [facility] [employer] Other 01-22-2023 09:45-0400 Body weight 92.72 kg Marcelino Ball Other [facility] [employer] Other 01-22-2023 09:45-0400 Diastolic blood pressure 86 mm[Hg] Marcelino Ball Other [facility] [employer] Other 01-22-2023 09:45-0400 Respiratory rate 12 /min Marcelino Ball Other [employer] Other 01-22-2023 09:45-0400 Systolic blood pressure 122 mm[Hg] Marcelino Ball Other [employer] Other 01-08-2023 09:00-0400 Body height 162.56 cm Marcelino Ball Other [employer] Other 01-08-2023 09:00-0400 Body mass index (BMI) [Ratio] 34.6 kg/m2 Marcelino Ball Other [employer] Other 01-08-2023 09:00-0400 Body weight 91.45 kg Marcelino Ball Other [employer] Other 01-08-2023 09:00-0400 Diastolic blood pressure 77 mm[Hg] Marcelino Cheney Other [employer] Other 01-08-2023 09:00-0400 Respiratory rate 16 /min Marcelino Cheney Other [employer] Other 01-08-2023 09:00-0400 Systolic blood pressure 110 mm[Hg] Marcelino Cheney Other [employer] Other Encounters Encounter Date Encounter Type Care Provider Facility Start: 05-12-2025 End: 05-12-2025 ambulatory Marcelino Cheney DO Work Phone: [facility] Work Phone: Start: 05-12-2025 End: 05-12-2025 Patient encounter procedure Marcelino Cheney DO -[facility] Work Phone: Start: 05-03-2025 End: 05-03-2025 ambulatory Marcelino Cheney DO Work Phone: [facility] Work Phone: Start: 05-03-2025 End: 05-03-2025 Patient encounter procedure Marcelino Cheney DO -[facility] Work Phone: Start: 04-21-2025 End: 04-21-2025 ambulatory Marcelino Cheney DO Work Phone: [facility] Work Phone: Start: 04-21-2025 End: 04-21-2025 Patient encounter procedure Marcelino Cheney DO -[facility] Work Phone: Start: 03-02-2025 Non-patient / Non-visit Marcelino Cheney DO -[facility] Work Phone: Start: 03-01-2025 End: 03-01-2025 Patient encounter procedure Marcelino Cheney DO -[facility] Work Phone: Start: 03-01-2025 End: 03-01-2025 Patient encounter status Marcelino Shravan DO [facility] Start: 09-15-2024 End: 09-15-2024 Laila flowsnatalie Brambila MD Work Phone: [facility] Start: 09-15-2024 End: 09-15-2024 Laila Brambila MD Work Phone: [facility] Start: 09-15-2024 End: 09-15-2024 ambulatory DEREK BRAMBILA Not Available Start: 09-15-2024 End: 09-15-2024 Office outpatient new 45 minutes Derek Brambila MD Work Phone: [facility] Comment on above: Intractable chronic migraine with aura with status migrainosus (CMS/HCC) (Primary Dx) Start: 08-18-2024 End: 08-18-2024 Bamboo flowsheet Ivone A Felter CHILD CENTER ASSISTANT-[employer]PH[employer] SMOOTHER Work Phone: [facility] Start: 08-18-2024 End: 08-18-2024 Bamboo flowsheet Ivone A Felter CHILD CENTER ASSISTANT-[employer]PH[employer] SMOOTHER Work Phone: [facility] Start: 08-18-2024 End: 08-18-2024 Office outpatient visit 15 minutes Ivone A Felter CHILD CENTER ASSISTANT-[employer]PH[employer] SMOOTHER Work Phone: [facility] Comment on above: Seborrheic keratosis (Primary Dx); Lentigines; Melanocytic nevus of trunk; Sebaceous hyperplasia of face Start: 08-18-2024 End: 08-18-2024 ambulatory IVONE A FELTER Not Available Start: 07-01-2024 End: 07-01-2024 ambulatory [facility] Work Phone: Start: 07-01-2024 End: 07-01-2024 Patient encounter procedure [facility] Work Phone: Start: 01-18-2024 End: 01-18-2024 ambulatory [facility] Work Phone: Start: 01-18-2024 End: 01-18-2024 Patient encounter procedure [facility] Work Phone: Start: 01-15-2024 End: 01-15-2024 ambulatory [facility] Work Phone: Start: 01-15-2024 End: 01-15-2024 Encounter for general adult medical examination without abnormal findings [facility] Start: 01-15-2024 End: 01-15-2024 Patient encounter procedure [facility] Physician [facility] Work Phone: Start: 11-10-2023 Non-patient / Non-visit [facility] Work Phone: Start: 06-15-2023 End: 06-15-2023 ambulatory Marcelino Cheney Other [employer] Other Start: 06-15-2023 Telephone encounter Marcelino GRIFFIN [facility] Start: 05-31-2023 End: 05-31-2023 ambulatory Marcelino Cheney Other [employer] Other Start: 05-31-2023 Telephone encounter Marcelino GRIFFIN G [facility] Start: 05-11-2023 End: 05-11-2023 ambulatory Marcelino Cheney Other [employer] Other Start: 05-11-2023 Nursing evaluation o f patient and report Marcelino Cheney [facility] Start: 05-05-2023 End: 05-05-2023 ambulatory Marcelino Cheney Other [employer] Other Start: 05-05-2023 Telephone encounter Marcelino GRIFFIN [facility] Start: 02-25-2023 End: 02-25-2023 ambulatory Marcelino Cheney Other [employer] Other Start: 02-25-2023 Telephone encounter Marcelino GRIFFIN G [place] [facility] Start: 02-03-[address] MARCELINO Santos ty:H1 Start: 01-27-2023 End: 01-28-[address] MARCELINO CHENEY Facility:H1 Start: 01-22-2023 End: 01-22-2023 ambulatory Marcelino Cheney Other [employer] Other Start: 01-22-2023 Office outpatient visit 25 minutes Marcelino Cheney [facility] Start: 01-16-2023 End: 01-17-[address] SHIVAM PEÑA . [employer] Other Start: 01-16-2023 Telephone encounter Marcelino Cheney [facility] Start: 01-08-2023 (WellA) Well Adult Marcelino Cheney [facility] Start: 01-08-2023 End: 01-08-2023 ambulatory Marcelino Cheney Other [employer] Other Start: 01-08-2023 Encounter for genera l adult medical examination without abnormal findings Marcelino Cheney [facility] Start: 10-30-2022 End: 10-31-[address] MARCELINO CHENEY Facility:H1 Start: 02-05-[address] MARCELINO Santos ty:H1 Start: 12-02-2021 End: 12-05-2021 ambulatory [facility] Start: 12-02-2021 End: 12-04-2021 Subsequent hospital visit by physician Kelly Jackson Radiologist [facility] Mammography Comment on above: Abnormal mammogram Start: 11-25-2021 End: 11-28-2021 ambulatory MARCELINO Jarquin SHRAVAN [facility] Start: 11-25-2021 End: 11-27-2021 Subsequent hospital visit by physician Kelly Mammography Room At [facility] Comment on above: Breast cancer screen ing by mammogram Start: 11-20-2021 Adult health examination Marcelino Cheney Other [employer] Other Start: 04-11-2021 End: 04-14-2021 ambulatory [facility] Start: 04-11-2021 End: 04-13-2021 Subsequent hospital visit by physician Kelly Melo Dr Room 4 [facility] Radiology Comment on above: Contusion of left [...] Cheney Other Start: 07-30-2015 Screening mammography B enolivia Cheney Other Depression screening Ayaka Cheney Other Plan of Treatment Date Care Activity Detail Author Start: 11-25-2026 Lipid panel Lipid screen [facility] Start: 08-21-2025 End: 08-21-2025 Patient encounter procedure 08/21/2025 11:25 AM EST Office Visit [facility] [address] [place] [address] Ivone Jones APRN-ASPHALT SMOOTHER [address] [place] [address] [facility] Start: 11-07-2024 End: 11-07-2024 Telemedicine consultation with patient 11/07/2024 9:30 AM EST Telemedicine [facility] [address] [place] [address] Derek Brambila MD 6037 [facility] [address] [address] [facility] Start: 09-15-2024 End: 09-15-2024 Patient encounter procedure 09/15/2024 9:00 AM EST Office Visit [facility] [address] [place] [phone] Derek Brambila MD 5319 [facility] [address] [id number] [facility] Start: 08-18-2024 End: 08-18-2024 Patient encounter procedure 08/18/2024 11:25 AM EST [facility] [address] [place] [address] Ivone Jones APRN-ASPHALT SMOOTHER [address] [place] [address] [facility] Comment on above: Arrived Start: 07-04-2024 Patient referral [facility] Work Phone: Start: 05-15-2024 Influenza vaccination Influenza Vacc ine (#1) [facility] Start: 12-03-2023 Screening for malign ant neoplasm of breast Breast cancer screen [facility] Start: 11-26-2023 Screening for malign ant neoplasm of breast Breast cancer screen [facility] Start: 12-02-2022 Screening for malign ant neoplasm of breast Mammogram [facility] Start: 05-19-2021 COVID-19 Vaccine (3 - Booster for Pfizer series) COVID-19 Vaccine (3 - Booster for Pfizer series) [facility] Start: 05-15-2021 Influenza vaccination Flu vaccine (# 1) [facility] Start: 2013 Screening for malign ant neoplasm of breast Breast cancer screen [facility] Start: 2013 Shingles Vaccine (1 of 2) Shingles Vaccine (1 of 2) [facility] Start: 2008 Screening for malign ant neoplasm of colon [facility] Start: 2003 Lipid panel Lipid screen [facility] Start: 1993 Screening for malign ant neoplasm of cervix [facility] Start: 1984 Screening for malign ant neoplasm of cervix [facility] Start: 1982 DTaP/Tdap/Td vaccine (1 - Tdap) DTaP/Tdap/Td vaccine (1 - Tdap) [facility] Start: 1978 [facility] Start: 1975 Depression Screen Depression Screen [facility] Start: 1963 Hepatitis C screening Hepatitis C sc reen [facility] Start: 1963 Screening for malign ant neoplasm of colon [facility] Comprehensive metabo lic 1999 panel - Serum or Plasma [facility] Comprehensive metabo lic 1999 panel - Serum or Plasma [facility] End: 11-25-2021 Lipid panel [facility] Work Phone: Comment on above: Once for 1 Occurrenc es starting 11/25/2021 until 11/25/2021 Patient Education Low back pain in adults [facility] Work Phone: Patient referral [facility] Work Phone: XR Hip - left 2 Views [facility] XR Lumbar spine [address] [facility] Immunizations Immunization Date Immunization Notes Care Provider [facility] 08-19-2024 influenza virus vaccine, unspecified formulation Derek Brambila MD Work Phone: [facility] 09-15-2023 influenza virus vaccine, unspecified formulation Ivone POLK Work Phone: [facility] 06-12-2022 COVID-19 Pfizer (bivalent) Marcelino Cheney Other [facility] 06-12-2022 influenza, injectabl e, quadrivalent, preservative free [facility] 06-12-2022 influenza, injectabl e, quadrivalent, contains preservative Marcelino Cheney Other [employer] Other 08-14-2021 COVID-19 Vaccine Pfi zer - Documentation Purposes Only Marcelino Cheney Other [facility] 07-25-2021 influenza virus vaccine, split virus (incl. purified surface antigen) Marcelino Cheney Other [employer] Other 07-25-2021 influenza virus vaccine, unspecified formulation [facility] 12-17-2020 COVID-19, Pfizer Pur ple top, DILUTE for use, 12+ yrs, 30mcg/0.3mL dose [facility] Work Phone: 11-20-2020 COVID-19, Pfizer Pur ple top, DILUTE for use, 12+ yrs, 30mcg/0.3mL dose [facility] 05-28-2020 influenza virus vaccine, split virus (incl. purified surface antigen) Marcelino Cheney Other [facility] [employer] Other 05-28-2020 influenza virus vaccine, unspecified formulation [facility] 06-20-2019 influenza virus vaccine, split virus (incl. purified surface antigen) Marcelino Cheney Other [employer] Other 06-20-2019 influenza virus vaccine, unspecified formulation [facility] Payers Date Payer Category Payer Private Health Insurance GENERIC COMMERCIAL [id number] 2020 Private Health Insurance [id number] 1963 Unknown [id number] 2.16.840.1.152468.3.579.2 .173 1963 Unknown [id number] 2.16.840.1.075872.3.579.2 .173 1963 Unknown [id number] 2.16.840.1.722446.3.579.2 .173 1963 Unknown [id number] 2.16.840.1.345156.3.579.2 .173 1963 Unknown [id number] 2.16.840.1.065630.3.579.2 .173 1963 Unknown [id number] 2.16.840.1.285310.3.579.2 .173 1963 Unknown [id number] 2.16.840.1.647137.3.579.2 .173 1963 Unknown [id number] 2.16.840.1.342714.3.579.2 .173 1963 Unknown [id number] 2.16.840.1.798859.3.579.2 .593 1963 Unknown [id number] 2.16.840.1.173788.3.579.2 .593 1963 Unknown [id number] 2.16.840.1.046469.3.579.2 .593 1963 Unknown [id number] 2.16.840.1.155524.3.579.2 .593 1963 Unknown [id number] 2.16.840.1.451522.3.579.2 .593 1963 Unknown [id number] 2.16.840.1.350075.3.579.2 .593 1963 Unknown [id number] 2.16.840.1.107671.3.579.2 .1259 1963 Unknown [id number] 2.16.840.1.102178.3.579.2 .1259 1959 Self-pay 1959 Unknown [id number] 2.16.840.1.159719.19 Social History Date Type Detail Facility Tobacco smoking status WIIS Unknown if ever smoked [facility] Work Phone: Start: 1965 Sex Assigned At Not on file M [employer] Phone: Start: 08-17-2023 Tobacco smoking status WIIS Tobacco smoking consumption unknown [email or web address] Phone: Start: 11-22-2021 End: 12-02-2021 Exposure to SARS-CoV-2 (event) Not sure [employer] Start: 08-08-2023 End: 09-15-2024 Sex Assigned At [facility] Start: 1965 Sex Assigned At Female F [facility] Start: 08-18-2023 End: 09-15-2024 Alcoholic beverage [...] Comment caffeine: 1-2 cups per day coffee [facility] Sex Female (finding) [facility] NEGATED: Highlighted rowStart: NINF History of tobacco use Passive smoker [facility] Clinical Notes 10-31-2022 to 03-01-2025 Note Date & Type Note Facility 03-01-2025 Evaluation note Diagnosis Onset Date Resolution Elevated cholesterol acute March 01, 2025 8:38am Essential (primary) hypertension acute March 01, 2025 8:38am Gastroesophageal reflux disease with esophagitis without hemorrhage acute March 01 8:38am Generalized anxiety disorder acute March 01, 2025 8:38am Left hip pain acute March 01, 2025 8:38am Low back pain acute March 01, 2025 8:38am Migraine acute March 01 8:38am Mild intermittent asthma without complication acute March 01, 2025 8:38am Screening mammogram for breast cancer noneactive March 01, 2025 8:38am Wellness examination noneactive March 01, 2025 8:38am Elevated cholesterol acute 2024 11:34am Essential (primary) hypertension acute April 21, 2025 11:34am Gastroesophageal reflux disease with esophagitis without hemorrhage acute April 21, 025 11:34am Low back pain acute April 21, 2025 11:34am Migraine acute April 21 11:34am [facility] Work Phone: 1(672) 127-135106-18-2025 Evaluation note* Diagnosis Onset Date Resolution Status Admit Date Elevated cholesterol acute March 01, 2025 8:38am Essential (primary) hypertension acute March 01, 2025 8:38am Gastroesophageal reflux dise ase with esophagitis without hemorrhage acute March 01, 2025 8:38am Generalized anxiety disorder acute March 01, 2025 8:38am Left hip pain acute March 01, 2025 8:38am Low back pain acute March 01, 2025 8:38am Migraine acute March 01 8:38am Mild intermittent asthma without complication acute March 01, 2025 8:38am Screening mammogram for abdiriz[address] [facility] cancer noneactive March 01, 2025 8:38am Wellness examination noneactive March 01, 2025 8:38am Elevated cholesterol acute 2024 11:34am Essential (primary) hypertension acute April 21, 2025 11:34am Gastroesophageal reflux dise ase with esophagitis without hemorrhage acute April 21, 2025 11:34am Obesity acute April 21 11:34am ASCENCION (obstructive sleep apnea) acute April 21, 2025 11:34am [facility] Work Phone: 1(226) 342-692206-18-2025 Evaluation note* Diagnosis Onset Date Resolution Status Admit Date Elevated cholesterol acute March 01, 2025 8:38am Essential (primary) hypertension acute March 01, 2025 8:38am Gastroesophageal reflux dise ase with esophagitis without hemorrhage acute March 01, 2025 8:38am Generalized anxiety disorder acute March 01, 2025 8:38am Left hip pain acute March 01, 2025 8:38am Low back pain acute March 01, 2025 8:38am Migraine acute March 01 8:38am Mild intermittent asthma without complication acute March 01, 2025 8:38am Screening mammogram for abdiriz[address] [facility] cancer noneactive March 01, 2025 8:38am Wellness examination noneactive March 01, 2025 8:38am Elevated cholesterol acute Augu st 2024 11:34am Essential (primary) hypertension acute April 21, 2025 11:34am Gastroesophageal reflux dise ase with esophagitis without hemorrhage acute April 21, 2025 11:34am Obesity acute April 21 11:34am ASCENCION (obstructive sleep apnea) acute April 21, 2025 11:34am Essential (primary) hypertension acute May 03 1:41pm External otitis of left ear noneacti ve May 03, 2025 1:41pm [facility] Work Phone: 1(837) 253-156101-02-2025 History of Present illness Narrative* Derek Brambila MD - 09/15/2024 9:00 AM EST Images from the original note were not [...] all day to a few hours. She statesshe will usually work through them unless they are ocular migraines and she cannot work. She statesshe will have to lay down. She states they are not as often. She is not currently taking anything. She states she was taking Excedrin and Dr. Cheney wanted her to stop taking it,. She states she is on escitalopram. She states her mother had them really bad and her middle son had severe ones. Excedrinwould help sometimes. But she states she would [...] CHOLECYSTECTOMY 1998 FOOT SURGERY Bilateral x2 HYSTERECTOMY 2000 KNEE SURGERY Bilateral multiple Social History Tobacco [...] Positive for headaches. Negative for tremors, weakness, light- headedness and numbness. Psychiatric/Behavioral: Negative for agitation, confusion [...] Neurological Exam PROCEDURE: NONE ASSESSMENT AND PLAN: Tiraa Multani is a 59 y.o. female who [...] chronic migraine with aura with status migrainosus ([facility]) Trial of Nurtec every other day [...] Follow up 8 weeks. [id number] History of Present illness Narrative* Ivone Jones, CHILD CENTER ASSISTANT-ASPHALT SMOOTHER - 08/18/2024 11:25 AM EST Skin Check Location: Patient requests a full body skin examination Dermatologic history: no history of skin cancer, no history of atypical moles, no family history ofmelanoma Last visit: 1 year ago Established patient [...] benign pigmented lesions that occur on sun-exposed andsun-damaged skin. No treatment is necessary. Recommended regular [...] Next Visit: 1 year [facility] [address] [facility] [id number] Evaluation note* Encounter Date Diagnosis Assessment Notes Treatment Notes Treatment Clinical Notes Jun, Primary insomnia (ICD-10 - F51.01) [employer] Other 09-17-2023 Evaluation note* Encounter Date Diagnosis Assessment Notes Treatment Notes Treatment Clinical Notes May, Primary insomnia (ICD-10 - F51.01) [employer] Other 08-28-2023 Evaluation note* Encounter Date Diagnosis Assessment Notes Treatment Notes Treatment Clinical Notes Apr, Seasonal allergic rhinitis due to pollen (ICD-10 - J30.1) [employer] Other 05-11-2023 Evaluation note* Encounter Date Diagnosis [...] - R00.0) Determine cause, r/o PE, CHF, [place] Underlying uncontrolled asthma? Thyrotoxicosis? January, Mild intermittent [...] R79.89) Increase fluids, limit caffeine, recheck BMP [employer] Other 05-05-2023 Evaluation note* Encounter Date Diagnosis Assessment Notes Treatment Notes Treatment Clinical Notes January, Tachycardia (ICD-10 - R00.0) January, Fatigue, unspecified type (ICD-10 - R53.83) [employer] Other 04-27-2023 Evaluation note* Encounter Date Diagnosis [...] mammogram for breast cancer (ICD-10 - Z12.31) [employer] Other 02-17-2023 NoteEXAMINATION: XR CHEST 2 V [...] 1. Normal examination. Electronically authenticated by: GIOVANNI SHEPHERD Date: 2022-10-31 09:36[facility] Diagnosis Contusion of left shoulder, initial encounter Contusion of left front wall of thorax, initial encounter documented in this encounter [email or web address] Phone: evaluation note* Diagnosis Contusion of left shoulder, initial encounter documented in this encounter [email or web address] Phone: evaluation note* Diagnosis Breast cancer screening by mammogram documented in this encounter [email or web address] Phone: evaluation note* Diagnosis Abnormal mammogram Abnormal mammogram, unspecified documented in this encounter [email or web address] Phone: evaluation note* Diagnosis Abnormal mammogram Abnormal mammogram, unspecified documented in this encounter [email or web address] Phone: Evaluation noteNo InformationNortAllegheny [facility] [employer] Other Evaluation note* Diagnosis Onset Date Resolution Status Elevated cholesterol acute Essential (primary) hypertension acute Gastroesophageal reflux dise ase with esophagitis without hemorrhage acute Generalized anxiety disorder acute Mild intermittent asthma without complication acute Screening mammogram for breast cancer noneactive Wellness examination noneact irena [facility] Work Phone: Evaluation note* Diagnosis Onset Date Resolution Status Essential (primary) hypertension acute Generalized anxiety disorder acute Migraine acute [facility] Work Phone: Evaluation note* Diagnosis Seborrheic keratosis- [...] Hospitalization History blood clot in stomach 2000 [facility] [employer] Other Hospital Discharge instructionsAmbulatory Orders* Referral to Neurology Location: None [facility] Work Phone: Rerhhi for referral (narrative)No reason for referral information availableFayette County Memorial Hospital Work Phone: Remmmr for visit Narrative* Consultation (Routine) - Closed Specialty Diagnoses / Procedures Referred By Contac t Referred To Contact Neurology Diagnoses Migraine, unspecified, not intractable, without status migrainosus (CMS/HCC) Procedures ND UNLISTED EVALUATION AND MANAGEMENT Marcelino Cheney MD [address] [place] [address] Phone: tel: fax: Derek Brambila MD [address] [facility] [address] [place] [address] Phone: tel: fax: Referral ID Status Reason Start Date Expiration Date Visits Re quested Visits Authorized [id number] Closed 07/04/2024 12/31/2024 1 1 [facility] Healthcare Summary Purpose Family History Relationship Condition Age at Onset Recorded Date/T rufus grandparent Malignant neoplasm of breast Unknown grandparent Heart disease Unknown sister History of ovarian cancer Unknown Advance Directives Advance Directive Response Recorded Date/ Time Advance Directives No November 19 2:44pm Reason for Referral Specialty Diagnoses / Procedures Referred By Contac t Referred To Contact Radiology Diagnoses Breast cancer screening by mammogram Procedures [facility] DIGITAL SCREEN SELF REFERRAL W OR WO CAD BILATERAL Marcelino Cheney, DO [address] [place] [address] Referral ID Status Reason Start Date Expiration Date Visits Re quested Visits Authorized [id number] Closed 11/25/2021 11/25/2022 1 1 Specialty Diagnoses / Procedures Referred By Mayelin t Referred To Contact Radiology Diagnoses Abnormal mammogram Procedures SAGRARIO LUIZA DIGITAL DIAGNOSTIC UNILATERAL RIGHT Marcelino Cheney, DO [address] [place] [address] Referral ID Status Reason Start Date Expiration Date Visits Re quested Visits Authorized [id number] Closed 11/28/2021 11/28/2022 1 1 Chief Complaint [...] Essential (primary) hypertension Generalized anxiety disorder Migraine Chief Complaint Admit Date left hip/back pain March 01, 2025 8:38 am discuss weight loss medication April 11:34am Reason for Visit Admit Date Elevated cholesterol March 01, 2025 8:3 8am Essential (primary) hypertension March 012024 8:38am Gastroesophageal reflux dise ase with esophagitis without hemorrhage March 01, 2025 8:38am Generalized anxiety disorder March 01, 2025 8:38am Left hip pain March 01, 2025 8:38 am Low back pain March 01, 2025 8:38 am Migraine March 01, 2025 8:38 am Mild intermittent asthma without complic ation March 01, 2025 8:38am Screening mammogram for breast cancer ne 2024 8:38am Wellness examination March 01, 2025 8:3 8am Elevated cholesterol April 21, 2025 11 :34am Essential (primary) hypertension April 21, 2025 11:34am Gastroesophageal reflux dise ase with esophagitis without hemorrhage April 21, 2025 11:34am Low back pain April 21, 2025 11: 34am Migraine April 21, 2025 11: 34am Chief Complaint Admit Date left hip/back pain March 01, 2025 8:38 am discuss weight loss medication April 11:34am L Ear Plugged/L Swollen Glands May 032024 1:41pm Reason for Visit Admit Date Elevated cholesterol March 01, 2025 8:3 8am Essential (primary) hypertension March 012024 8:38am Gastroesophageal reflux dise ase with esophagitis without hemorrhage March 01, 2025 8:38am Generalized anxiety disorder March 01, 2025 8:38am Left hip pain March 01, 2025 8:38 am Low back pain March 01, 2025 8:38 am Migraine March 01, 2025 8:38 am Mild intermittent asthma without complic ation March 01, 2025 8:38am Screening mammogram for breast cancer [facility] 2024 8:38am Wellness examination March 01, 2025 8:3 8am Elevated cholesterol April 21, 2025 11 :34am Essential (primary) hypertension April 21, 2025 11:34am Gastroesophageal reflux dise ase with esophagitis without hemorrhage April 21, 2025 11:34am Obesity April 21, 2025 11: 34am ASCENCION (obstructive sleep apnea) April 11:34am Chief Complaint Admit Date left hip/back pain March 01, 2025 8:38 am discuss weight loss medication April 11:34am L Ear Plugged/L Swollen Glands May 032024 1:41pm allergy shot May 12, 2025 2: 44pm Reason for Visit Admit Date Elevated cholesterol March 01, 2025 8:3 8am Essential (primary) hypertension March 012024 8:38am Gastroesophageal reflux dise ase with esophagitis without hemorrhage March 01, 2025 8:38am Generalized anxiety disorder March 01, 2025 8:38am Left hip pain March 01, 2025 8:38 am Low back pain March 01, 2025 8:38 am Migraine March 01, 2025 8:38 am Mild intermittent asthma without complic ation March 01, 2025 8:38am Screening mammogram for breast cancer 2024 8:38am Wellness examination March 01, 2025 8:3 8am Elevated cholesterol April 21, 2025 11 :34am Essential (primary) hypertension April 21, 2025 11:34am Gastroesophageal reflux dise ase with esophagitis without hemorrhage April 21, 2025 11:34am Obesity April 21, 2025 11: 34am ASCENCION (obstructive sleep apnea) April 11:34am Essential (primary) hypertension May 03, 2025 1:41pm External otitis of left ear May 03, 2025 1:41pm Additional Source Comments INFORMATION SOURCE (unrecogn ized section and content) DATE CREATED AUTHOR [facility] DATE CREATED AUTHOR AUTHOR'S ORGANIZ ATION 12/06/2021 [facility] DATE CREATED AUTHOR AUTHOR'S ORGANIZ ATION 01/28/2023 [facility] DATE CREATED AUTHOR AUTHOR'S ORGANIZ ATION 09/16/2024 [facility] dical Specialists EPIC Care Teams (unrecognized sec tion and content) Team Status: Active Member Role Status Dates Marcelino Cheney DO Primary Care Provider Active Team Status: Inactive Member Role Status Dates Marcelino Cheney DO Primary Care Provide r, Attending Provider Active Start: July 01, 2024 End: July 01, 2024 Transition Of Care Specialist Relationship Specialty Start Date End Date Marcelino Cheney DO [address] [place] [address] PCP - General Internal Medicine 04/11/21 Transition Of Care Specialist Relationship Specialty Start Date End Date Marcelino Cheney DO [address] [place] [address] PCP - General Internal Medicine 04/11/21 Transition Of Care Specialist Relationship Specialty Start Date End Date Shravan Marcelino, DO [address] [facility] [phone] PCP - General Internal Medicine 04/11/21 Transition Of Care Specialist Relationship Specialty Start Date End Date Shravan Marcelino DO [address] [place] [phone] PCP - General Internal Medicine 04/11/21 Team [...] January 18, 2024 End: January 18, 2024 Transition Of Care Specialist Relationship Specialty Start Date End Date Marcelino Cheney MD [address] [place] [phone] PCP - General Internal Medicine 09/15/24 Transition Of Care Specialist Relationship Specialty Start Date End Date Marcelino Cheney MD [address] [place] [phone] PCP - General Internal Medicine 09/15/24 Team Status: Inactive Member Role Status Dates Marcelino Cheney DO Primary Care Provider Active Start: March 01, 2025 End: March 01, 2025 Marcelino Cheney DO Attending Provider Active Sta rt: March 01, 2025 End: March 01, 2025 Team Status: Active Member Role Status Dates Marcelino Cheney DO Primary Care Provider Active Start: March 02, 2025 Marcelino Cheney DO Attending Provider Active Sta rt: March 02, 2025 Team Status: Inactive Member Role Status Dates Marcelino Cheney DO Primary Care Provider Active Start: April 21, 2025 End: April 21, 2025 Marcelino Cheney DO Attending Provider Active Sta rt: April 21, 2025 End: April 21, 2025 Team Status: Inactive Member Role Status Dates Marcelino Cheney DO Primary Care Provider Active Start: May 03, 2025 End: May 03, 2025 Marcelino Cheney DO Attending Provider Active Sta rt: May 03, 2025 End: May 03, 2025 Team Status: Inactive Member Role Status Dates Marcelino Cheney DO Primary Care Provider Active Start: May 12, 2025 End: May 12, 2025 Marcelino Cheney DO Attending Provider Active Sta rt: May 12, 2025 End: May 12, 2025 Reason for Visit (unrecogniz ed section and content) Specialty Diagnoses / Procedures Referred By Contac t Referred To Contact Radiology Diagnoses Breast cancer screening by mammogram Procedures SAGRARIO LUIZA DIGITAL SCREEN SELF REFERRAL W OR WO CAD BILATERAL Marcelino Cheney DO [address] [place] [address] Referral ID Status Reason Start Date Expiration Date Visits Re quested Visits Authorized [id number] Closed 11/25/2021 11/25/2022 1 1 Specialty Diagnoses / Procedures Referred By Contac t Referred To Contact Radiology Diagnoses Abnormal mammogram Procedures SAGRARIO LUIZA DIGITAL DIAGNOSTIC UNILATERAL RIGHT Marcelino Cheney DO [address] [place] [address] Referral ID Status Reason Start Date Expiration Date Visits Re quested Visits Authorized [id number] Closed 11/28/2021 11/28/2022 1 1 Specialty Diagnoses / Procedures Referred By Contac t Referred To Contact Radiology Diagnoses Abnormal mammogram Procedures US BREAST LIMITED RIGHT Marcelino Cheney DO [address] [place] [address] Referral ID Status Reason Start Date Expiration Date Visits Re quested Visits Authorized [id number] Closed 11/28/2021 11/28/2022 1 1 Reason Comments [...] BE BASED ON THE PRIMARY CLINICAL RECORDS. [facility]. provides no warranty or guarantee of the accuracy or completeness of information in this document.
[2025-06-26 11:07] LABS: Microalbum Creatinine Ratio Ur 4.9 mg/g (0.0-29.9)
[2025-06-26 15:08] LABS: Anion Gap 13.6; Blood Urea Nitrogen 19.0 mg/dL (7.0-18.0); Calcium 8.8 mg/dL (8.5-10.1); Carbon Dioxide 26.6 mmol/L (21.0-32.0); Chloride 107 mmol/L (98-107); Estimated GFR (African America 54 (>=60 mL/min/1.73m^2); Estimated GFR (Non-African Ame 44 (>=60 mL/min/1.73m^2); Glucose 102 mg/dL (74-106); Potassium 4.2 mmol/L (3.5-5.1); Sodium 143 mmol/L (136-145)
== END 2025-06-26 10:40 | disposition home or self-care (01) ==
LOC: LAB 10:41
PROVIDERS: PCP Internal Medicine; Visit Provider Internal Medicine
DX: N18.9 Chronic kidney disease, unspecified (principal)
CPT/HCPCS: 36415; 80048; 82043; 82570

== ENCOUNTER 2025-09-04 09:19 | Outpatient (OUT) | payer OTHER, SELFPAY ==
--- OUTSIDE RECORDS SUMMARY | 2025-08-21 11:20 | XMS_ITS | Encounter Summary ---
Author Organization [facility] Address [address] [place] [address] Care Team Providers Care Bread Supervisor Name Role Phone Marcelino Cheney DO Primary Care Provider [phone] Reason for Visit * ReasonCommentsSkin Check Encounter Details DateTypeDepartmentCare Team (Latest Contact Info)Crwscdozehu16/08/2025 11:20 AM ESTOffice Visit [facility] [address] [place] [phone] Ivone Jones, TREE DOCTOR-MEAT CLERK [address] [place] [address] Seborrheic keratosis (Primary Dx); Melanocytic nevus of trunk; Lentigines; Sebaceous hyperplasia of face Social History Tobacco UseTypesPacks/DayYears UsedDateSmoking Tobacco: UnknownPassive Smoke Exposure: Never Comments:Light tobacco smoke r Alcohol UseStandard Drinks/WeekCommentsYes0 (1 standard drink = 0.6 oz pure alcohol)caffeine: 1-2 cups per day coffeeAUDIT-CAnswerDate RecordedQ1: How often do you have a drink containing alcohol?2-4 times a month08/08/2023Q2: How many drinks containing alcohol do you have on a typical day when you are drinking?1 or Frequency of Binge DrinkingNot on file3Comments UnknownSex and Gender InformationValueDate RecordedSex Assigned at BirthNot on fileLegal SdnOmlogf66/15/2023 6:37 PM EDTGender IdentityNot on fileSexual OrientationNot on filedocumented as of this encounter Progress Notes * FELICITAS Yarbrough - 08/21/2025 11:20 AM EST Skin Check Location: Patient requests [...] hair Right leg Examined Head, Face Examined , limited by makeup Left leg Examined Neck Examined Right foot Examined Chest Examined Left foot Examined Back Examined Buttocks Examined , limited by underwear Abdomen Examined Digits,nails: Examined Right arm Examined Patient is wearing finger nail arabic. Mary[place] any dark streaks. Left arm Examined Lymphatics: Not examined Hands Examined Skin Exam 1. SEBORRHEIC KERATOSIS Generalized Stuck on verrucous, variably pigmented papules and plaques. Patient was counseled regarding these benign growths. Removal is normally not necessary, but they may be removed if they are symptomatic or for cosmetic reasons. 2. MELANOCYTIC NEVUS OF TRUNK Trunk Scattered benign appearing, regular brown to light brown melanocytic papules and macules with similar morphology Counseled regarding these benign growths. Rarely, a nevus can develop into malignant melanoma, so any changing nevi should be promptly re-evaluated. 3. LENTIGINES Generalized Scattered mendoza macules in sun-exposed areas. The patient was informed that lentigines are benign pigmented lesions that occur on sun-exposed andsun-damaged skin. No treatment is necessary. Recommended regular use of broad spectrum sunscreen SPF 30 or higher 4. SEBACEOUS HYPERPLASIA OF FACE Head - Anterior (Face) Small yellow papules with a central dell. Reassure, benign. Discussed these can be removed for a cosmetic fee with the hyfrecator if desired. Next Visit: 1 year, skin check documented in this encounter Plan of Treatment DateTypeDepartmentCare Team (Latest Contact Info)Fwmyzfkaqdy11/10/2026 10:30 AM ESTOffice Visit [facility] [address] [facility] [address] [place] [phone] Ivone Jones APRN-MEAT CLERK [address] [facility] [address] [place] [address] documented as of this encounter Visit Diagnoses Diagnosis Seborrheic keratosis- Primary Melanocytic nevus of trunk Benign neoplasm of skin of trunk, except scrotum Lentigines Sebaceous hyperplasia of face documented in this encounter Care Teams Team MemberRelationshipSpecialtyStart DateEnd Date Marcelino Cheney DO [address] [place] [phone] PCP - GeneralInternal Medicine03/06/25documented as of this encounter
--- OUTSIDE RECORDS SUMMARY | 2025-09-04 09:23 | XMS_ITS | Clinical Summary ---
Author Organization [facility] Address [address], [address] [place] [address] Care Team Providers Care Cold Patcher Name Role Phone Marcelino Cheney DO Primary Care Provider [phone] Immunizations ImmunizationAdministration DatesNext DueCOVID-19, Inactive, PFIZER PURPLE top, DILUTE for use, (age 12 y+)12/17/2020,11/20/2020 Social History Tobacco UseTypesPacks/DayYears UsedDateSmoking Tobacco: Never Assessed CommentsUnknownSex and Gender InformationValueDate RecordedSex Assigned at Not on fileLegal RftXeyfss67/29/2021 12:54 PM EDTGender IdentityNot on file Sexual OrientationNot on file Plan of Treatment Not on file Insurance Care Teams Team MemberRelationshipSpecialtyStart [place] [address] [place] [phone] PCP - GeneralInternal Medicine04/11/21
--- OUTSIDE RECORDS SUMMARY | 2025-09-04 09:23 | XMS_ITS | Clinical Summary ---
Author Organization [facility] Address [address] [facility] [place] [address] Care Team Providers Care Anesthesia Tech Name Role Phone Marcelino Cheney DO Primary Care Provider [phone] Allergies Active AllergyReactionsCriticalityNoted UexmFudktgrrHivdkudNhebMre86/04/2023 Other Reaction(s): Hives, Esophageal spasms Medications MedicationSigDispense QuantityRefillsLast FilledStart DateEnd DateStatus fexofenadine (Carolina Allergy) 60 MG tablet AllegraActive coenzyme Q-10 10 MG capsule Co Q 10Active escitalopram (Lexapro) 5 MG/5ML solution Escitalopram OxalateActive pantoprazole (ProtoNix) 20 MG EC tablet Pantoprazole SodiumActive TEMAZEPAM & DIET MANAGE PROD PO TemazepamActive atorvastatin (Lipitor) 40 MG tablet 08/04/2023ctive celecoxib (CeleBREX) 200 MG capsule TAKE 1 CAPSULE BY MOUTH EVERY DAY FOR 30 DAYSActive lisinopril-hydroCHLOROthiazide 10-12.5 MG tablet .NISFGVN6112/07/2023ctive Active Problems ProblemNoted DateDiagnosed YqcaJewurmpoi55/30/2024 Overview (09/12/2024): Seasonal Unmlqxkzz18/30/2024Essential (primary) qgfkoddqqlkl11/30/2024Gastroesophageal reflux disease with esophagitis without riwfgqvoug72/30/2024Generalized anxiety mjmidibd80/30/0636Npmfmroiicyonxtpzijt73/30/0268Ujfgtara50/30/2024Mild intermittent asthma without ekczustzvegm81/30/2024eflux rtbyqozcp03/30/2024 Sleep /30/2024llergic rhinitis due to ottqsg8206/16/2016 Encounters DateTypeDepartmentCare EcmbSakvxnmjfww86/08/2025 11:20 AM ESTOffice Visit [facility] [address] [place] [address] Ivone Jones, REMOTELY PILOTED VEHICLE CONTROLLER-PHOTOCOMPOSITION KEYBOARD OPERATOR Seborrheic keratosis (Primary Dx); Melanocytic nevus of trunk; Lentigines; Sebaceous hyperplasia of face08/21/2025Travelfrom Last 3 Months Family History Medical HistoryRelationNameCommentsCancerFatherDiabetesFatherHeart diseaseFather CancerMaternal GrandfatherCancerMaternal GrandmotherDiabetesMaternal Grandmother Heart diseaseMaternal GrandmotherHeart diseaseMotherHyperlipidemiaMotherCancer Paternal GrandfatherDiabetesPaternal GrandfatherHeart diseasePaternal GrandfatherHypertensionPaternal GrandfatherDiabetesPaternal GrandmotherHeart diseasePaternal GrandmotherHypertensionPaternal GrandmotherCancerSiblingDiabetes SiblingHyperlipidemiaSiblingHypertensionSiblingBell's palsySisterFibromyalgia SisterRelationNameStatusCommentsDaughterAliveFatherDeceasedMaternal Grandfather DeceasedMaternal GrandmotherDeceasedMotherDeceasedOtherSpouseAlivePaternal GrandfatherDeceasedPaternal GrandmotherDeceasedSiblingAliveSisterAliveSonAlive Social History Tobacco UseTypesPacks/DayYears UsedDateSmoking Tobacco: UnknownPassive Smoke Exposure: Never Tobacco Cessation:Counseling Given: No Comments:Light tobacco smoker Alcohol UseStandard Drinks/WeekCommentsYes0 (1 standard drink = 0.6 oz pure alcohol)caffeine: 1-2 cups per day coffeeAUDIT-CAnswerDate RecordedQ1: How often do you have a drink containing alcohol?2-4 times a month08/08/2023Q2: How many drinks containing alcohol do you have on a typical day when you are drinking?1 or Frequency of Binge DrinkingNot on file08/08/2023Comments UnknownSex and Gender InformationValueDate RecordedSex Assigned at BirthNot on fileLegal WaiJmwala51/15/2023 6:37 PM EDTGender IdentityNot on fileSexual OrientationNot on file Last Filed Vital Signs Vital SignReadingTime TakenCommentsBlood Cbhvwnhq622/8510 12:00 PM EDT Pulse--Temperature--Respiratory Rate--Oxygen Saturation--Inhaled Oxygen Concentration--Pevfmj30.5 kg (215 lb)09/15/2024 9:12 AM JLIDfiwfh890.6 cm (5' 4 )09/15/2024 9:12 AM ESTBody Mass Index36.9009/15/2024 9:12 AM EST Plan of Treatment DateTypeDepartmentCare Team (Latest Contact Info)Gywbechopgi22/10/2026 10:30 AM ESTOffice Visit [facility] [address] [place] [address] Ivone Jones, REMOTELY PILOTED VEHICLE CONTROLLER-PHOTOCOMPOSITION KEYBOARD OPERATOR [address] [place] [address] Health MaintenanceDue DateLast DoneCommentsCT Mmqeclozjvci1963Colonoscopy 1965Colorectal Cancer Ttyzaeqhm1963FIT-DNA1963FIT1965 FOBT05/18/19636130Mkaknwrmydsxf1963Pap Smear1984Cervical Cancer Foerrmvtq21/04/1993HPV/Kmbahi2805/18/19937041Gfrmljjhx61/21/202303/, 12/02/2021, 2COVID-19 Vaccine ( season)/02/2024, 09/15/2023, 06/12/2022, Additional history existsInfluenza Vaccine (#1) /02/2024, 09/15/2023, 06/12/2022, Additional history exists Pneumococcal Vaccine: Pediatrics (0 to 5 Years) and At-Risk Patients (6 to 64 Years)Aged OutNo longer eligible based on patient's age to complete this topic Insurance [facility] Address: [address] [place] [address] Care Teams Team MemberRelationshipSpecialtyStart DateEnd Marcelino Cheney DO [address] [place] [address] PCP - GeneralInternal Medicine03/06/25
--- OUTSIDE RECORDS SUMMARY | 2025-09-04 09:23 | XMS_ITS | Encounter Summary ---
Author Organization [facility] Address [address] [place] [address] Care Team Providers Care Supervisor Cigar Making Hand Name Role Phone Marcelino Cheney Primary Care Provider [phone] Encounter Details DateTypeDepartmentCare Team (Latest Contact Info)Jfdbojsomhd23/08/2025Travel Social History Tobacco UseTypesPacks/DayYears UsedDateSmoking Tobacco: UnknownPassive [...] InformationValueDate RecordedSex Assigned at BirthNot on fileLegal HgfJwaxlr65/15/2023 6:37 PM EDTGender IdentityNot on fileSexual OrientationNot on filedocumented as of this encounter Plan of Treatment DateTypeDepartmentCare Team (Latest Contact Info)Jcfhprcrisz12/10/2026 10:30 AM ESTOffice Visit [facility] [address] [place] [phone] Ivone Jones, REPAIR SERVICE CLERK-EXTRUSION SUPERVISOR [address] [place] [address] documented as of this encounter Visit Diagnoses Not on filedocumented in this encounter Care Teams Team MemberRelationshipSpecialtyStart DateEnd Date Marcelino Cheney DO [address] [place] [phone] PCP - GeneralInternal Medicine03/06/25documented as of this encounter
--- OUTSIDE RECORDS SUMMARY | 2025-09-04 09:23 | XMS_ITS | Clinical Summary ---
Author Organization [facility] Address [address] [place], [place] [id number] Care Team Providers Care Work Manager Name Role Phone Unavailable Primary Care Provider Unavailabl e Social History Tobacco UseTypesPacks/DayYears UsedDateSmoking Tobacco: Never Assessed CommentsUnknownSex and Gender InformationValueDate RecordedSex Assigned at Not on fileLegal MftIktwlm56/02/2012 9:35 AM ESTGender IdentityNot on fileSexual OrientationNot on file Plan of Treatment Health MaintenanceDue DateLast DoneCommentsAnxiety Zokirikuc53/04/1981Depression Cguqazycv74/04/1981HIV Vjcsheazs68/04/1981Hepatitis C Xqwnfwdst24/04/1981 DTaP,Tdap,Td Vaccine (1 - Tdap)1982Cervical Cancer Jvxppcprf81/04/1984 Mammogram Nvhdbagwp44/04/2003CT Upzjeqehrasy71/04/2008Cologuard (FIT-DNA) 05/18/20084960Efkyskqpvtz97, 07/18/2002Colorectal Cancer Screening 2008Diabetes Zpfqpsqmu30Fecal Occult Blood2008 Lipid Ylatexuzz48/04/2880Rqudlbbvjfdiv10/04/2008Pneumococcal Vaccine: 50+ (1 of 1 - PCV)2013Shingrix Vaccine (1 of 2)2013Covid-19 Vaccine (1 - 2024- season)2025Influenza Vaccine (#1)2025RSV Vaccine (1 - 1-dose 75+ series)2038 Procedures Procedure NamePriorityDate/TimeAssociated DiagnosisCommentsCOLONOSCOPY, GI 02/04/2006 COMPREHENSIVE METABOLIC PANEL05/14/2000 4:30 AM EDT from Last 3 Months or Most Recently Relevant to Health Maintenance Results * COLONOSCOPY, GI (02/04/2006)ComponentValueRef RangeTest MethodAnalysis Time Performed AtPathologist SignatureTranscriptionDATE: 02/04/2006 ENDOSCOPIST: ??Johnny Pastor D.O. REFERRING PHYSICIAN: ? PATIENT NAME: ISAK MARCIAL DATE: 1965 [facility] NO: [id number] IMPRESSION: 1. ??Colon polyp 2. ??Small internal hemorrhoid INTRODUCTION 40 year old female [...] ileum confirmed by appendiceal orifice, cecal strap (picayune's foot) and ileocecal valve. ??A staff physician was present for the entire procedure from the insertion to the removal of the scope. ??Retroflexion was performed. ??The quality of the preparation was excellent. FINDINGS: ??The colonic mucosa appeared entirely normal with the exception of a diminutive polyp in the descending colon that was removed with cold biopsy forceps. There were no bleeding sites found. ??One small internal hemorrhoid was noted on retroflexion. ??Multiple random biopsies were obtained throughout. There were no masses found. ??There were no vascular abnormalities noted. [facility] LABSpecimen (Source)Anatomical Location / LateralityCollection Method / VolumeCollection TimeReceived Time02/04/2006 Narrative [facility] - 02/04/2006 5:04 PM EDT Ordered by an unspecified provider. Authorizing ProviderResult TypeResult StatusCcf ProviderSCHEDULED PROCEDURES Final ResultPerforming OrganizationAddressCity/State/ZIP CodePhone Number [facility] [address] [place] [address] * (ABNORMAL) COMP CHEMISTRY PKG (05/14/2000 4:30 AM EDT)ComponentValueRef Range Test MethodAnalysis TimePerformed AtPathologist SignatureProtein, Total6.36.0 - 8.4 g/dLCLEMIAMI VALLEY HOSPITAL LABAlbumin3.4(A)3.5 - 5.0 g/dLWVUMEDICINE HARRISON [facility] LAB Calcium8.78.5 - 10.5 mg/dLWVUMEDICINE HARRISON COMM[facility]ITY [facility] LABBilirubin, Total0.40.0 - 1.5 mg/dLWVUMEDICINE HARRISON COMM[facility]ITY [facility] LABAlkaline Nfexhwknrvp8294 - 120 U/[facility] ZVHNRS162 - 40 U/[facility] QBLYqthgfa3506 - 110 mg/dLWVUMEDICINE [facility]ARRISON [facility] SDNWRS125 - 25 mg/dLWVUMEDICINE HARRISON COMM[facility] LABCreatinine0.70.7 - 1.4 mg/dLWVUMEDICINE [facility]ARRISON [facility] JFQDvbtxk252022 - 148 mmol/[facility] LABPotassium4.63.5 - 5.0 mmol/[facility] VVALdpxgtnm13847 - 110 mmol/[facility] WPBPA954 (A)24 - 32 mmol/[facility] LABAnion Ckf569 - 15 mmol/[facility] CCJBEB532 - 45 U/[facility] LABSpecimen (Source)Anatomical Location / LateralityCollection Method / VolumeCollection TimeReceived Time05/14/2000 4:30 AM EDT Narrative Authorizing ProviderResult TypeResult StatusJohn A DumotLABORATORYFinal Result Performing OrganizationAddressCity/State/ZIP CodePhone Number [facility] [address] [place] [address] from Last 3 Months or Most Recently Relevant to Health Maintenance Insurance
--- NOTE | 2025-09-04 09:50 | MM_ITS ---
Patient Name: ISAK MARCIAL MR#: [id number] : 1965 Exam Date: 09/04/2025 Ordering Doctor: DR MAIA BENNETT D.O. RADIOLOGY REPORT PROCEDURE: MM TOMOSYNTHESIS SCREENING BI COMPARISON: MM TOMOSYNTHESIS SCREENING BI, 08/18/2024. MM TOMOSYNTHESIS SCREENING BI, 07/06/2023. MG MAMM SCREEN CIPRIANO W CAD, 07/17/2020. MG MAMM CIPRIANO SCRN W CAD DIG, 07/12/2013. INDICATIONS: Screening Calculator Name NCI Breast Cancer Risk Assessment Tool 5 Year Breast Cancer Risk 1.10% Lifetime Breast Cancer Risk 5.00% Personal Breast Cancer No Personal Ovarian Cancer No Treatments None Family Cancers Grandmother-maternal with breast cancer at age ~54; Aunt-maternal with breast cancer at age ~40; Grandfather-paternal with prostate cancer at age ~55; Sister with uterine cancer at age ~42. LOCATION: [facility] BREAST COMPOSITION: There are scattered areas of fibroglandular density. FINDINGS: DIAGNOSTIC CATEGORY 1--NEGATIVE. RIGHT BREAST: No significant suspicious finding. LEFT BREAST: No significant suspicious finding. RECOMMENDATIONS: ROUTINE MAMMOGRAM AND CLINICAL EVALUATION IN 12 MONTHS. Dictated by: Joshua Kaye MD on 09/04/2025 at 12:59 Approved by: Johsua Kaye MD on 09/04/2025 at 13:00
== END 2025-09-04 09:20 | disposition home or self-care (01) ==
LOC: MAMMO 09:19
PROVIDERS: PCP Internal Medicine; Visit Provider Internal Medicine
DX: Z12.31 Encounter for screening mammogram for malignant neoplasm of breast (principal); Z80.3 Family history of malignant neoplasm of breast; Z80.42 Family history of malignant neoplasm of prostate; Z80.8 Family history of malignant neoplasm of other organs or systems
CPT/HCPCS: 77063; 77067